=== PATIENT | female | born 1945 | race Asian ===

== ENCOUNTER 2019-11-09 10:48 | Outpatient (CLI) | payer MEDICARE, OTHER | END 2019-11-09 10:49 | disposition home or self-care (01) | LOC: RT 10:48 | PROVIDERS: ATTEND Ophthalmology | DX: I49.9 Cardiac arrhythmia, unspecified (principal) | CPT/HCPCS: 93005 ==

== ENCOUNTER 2019-11-17 09:07 | Outpatient (CLI) | payer MEDICARE, OTHER ==
[2019-11-17 09:41] LABS: BASOPHILS # (AUTO) 0.1 10^3/uL (0.0-0.1); BASOPHILS % (AUTO) 0.9 %; EOSINOPHILS # (AUTO) 0.2 10^3/uL (0.0-0.7); EOSINOPHILS % (AUTO) 2.1 %; HGB - HEMOGLOBIN 12.4 g/dL (12.0-16.0); LYMPHOCYTES # (AUTO) 1.9 10^3/uL (1.5-3.5); LYMPHOCYTES % (AUTO) 20.7 %; MEAN CORPUSCULAR HGB CONC 32.4 g/dL (32.0-36.0); MEAN CORPUSCULAR VOLUME 92.5 fL (81.0-99.0); MEAN PLATELET VOLUME 9.6 fL (7.9-10.8); MONOCYTES # (AUTO) 0.8 10^3/uL (0.0-1.0); MONOCYTES % (AUTO) 8.8 %; NEUTROPHILS # (AUTO) 6.1 10^3/uL (1.5-6.6); NEUTROPHILS % (AUTO) 67.1 %; PLT - PLATELET COUNT 336 10^3/uL (130-450); RED BLOOD COUNT 4.14 10^6/uL (4.20-5.40); RED CELL DISTRIBUTION WIDTH 14.6 % (12.0-15.0); WHITE BLOOD COUNT 9.1 x10^3/uL (4.8-10.8)
[2019-11-17 09:59] LABS: ALBUMIN 4.2 g/dL (3.2-5.5); ALBUMIN/GLOBULIN RATIO 1.2 (1.0-2.2); ALKALINE PHOSPHATASE 76 IU/L (42-121); ALT ALANINE AMINOTRANSFERASE 20 IU/L (10-60); AST ASPARTATE AMINOTRANSFERASE 34 IU/L (10-42); BILIRUBIN,TOTAL 1.1 mg/dL (0.2-1.0); BUN - BLOOD UREA NITROGEN 32 mg/dL (6-20); CARBON DIOXIDE - CO2 28 mmol/L (21-32); CHLORIDE 100 mmol/L (101-111); CHOL/HDL RATIO 3.3 (<4.4); CHOLESTEROL 228 mg/dL; CREATININE 1.1 mg/dL (0.4-1.0); GFR - MDRD 49 (>89); GLUCOSE 110 mg/dL (70-100); HDL CHOLESTEROL 70 mg/dL; LDL CHOLESTEROL,CALCULATED 145 mg/dL; LDL/HDL RATIO 2.1 (<4.4); SODIUM 138 mmol/L (135-145); TOTAL PROTEIN 7.6 g/dL (6.7-8.2); VLDL CHOLESTEROL 13 mg/dL
== END 2019-11-17 09:08 | disposition home or self-care (01) ==
LOC: DI 09:07
PROVIDERS: ATTEND Physician Assistant
DX: I49.3 Ventricular premature depolarization (principal); R94.31 Abnormal electrocardiogram [ECG] [EKG]; I10 Essential (primary) hypertension; Z00.00 Encounter for general adult medical examination without abnormal findings
CPT/HCPCS: 36415; 80053; 80061; 83721; 84443; 85025; 93306

== ENCOUNTER 2019-11-17 09:32 | Outpatient (CLI) | payer MEDICARE, OTHER | END 2019-11-17 09:33 | disposition home or self-care (01) | LOC: LAB.S 09:32 | PROVIDERS: ATTEND Physician Assistant | DX: Z00.00 Encounter for general adult medical examination without abnormal findings (principal) ==

== ENCOUNTER 2020-03-07 07:17 | Day surgery (SDC) | payer MEDICARE, OTHER ==
[~2020-03-07 07:17] MED LIST: BRIMONIDINE 0.2% OPHTH DROPS 5 ML ONE; BSS/LIDOCAINE/EPINEPHRINE 1 ML SYRINGE ONE; CYCLOPENTOLATE 1% OPHTH DROPS 2 ML ONE; KETOROLAC 0.45% OPHTH DROPS ONE; PHENYLEPHRINE 2.5% OPHTH 2 ML DROPS ONE; PROPARACAINE 0.5% OPHTH DROPS 15 ML ONE; TRIAMCIN/MOXIFLOX OPHTHALMIC 0.6 ML VIAL IO ONE; VANCOMYCIN OPHTHALMI 8MG/0.8ML 8 MG/0.8 ML SYRINGE IO ONE; timoloL maleate 0.5% OPHTH DROPS (10ML) ONE
[2020-03-07] MEDS ORDERED: LACTATED RINGERS 500 ML IV ONE (07:34)
[2020-03-07] MEDS ORDERED: KETOROLAC 0.45% OPHTH DROPS RIGHTEYE ONE (07:35)
[2020-03-07] MEDS ORDERED: PROPARACAINE 0.5% OPHTH DROPS 15 ML RIGHTEYE ONE (07:35)
[2020-03-07] MEDS ORDERED: PHENYLEPHRINE 2.5% OPHTH 2 ML DROPS RIGHTEYE ONE (07:35)
[2020-03-07] MEDS ORDERED: CYCLOPENTOLATE 1% OPHTH DROPS 2 ML RIGHTEYE ONE (07:35)
--- NOTE | 2020-03-07 08:08 | ANESTHESIA ---
Pre-Anesthesia VS, & Labs - Diagnosis R senile combined cataract - Procedure R extraction cataract w/IOL Vital Signs: Temp Pulse Resp BP Pulse Ox 36.3 C L 76 16 125/76 97 03/07/20 07:29 03/07/20 07:29 03/07/20 07:29 03/07/20 07:29 03/07/20 07:29 Height 5 ft 1 in Weight (kg) 54 kg - NPO >8 hours - Is Patient ?: No Home Medications and Allergies Home Medications: Ambulatory Orders Amlodipine Besylate 5 mg PO DAILY 02/27/20 Lisinopril/Hydrochlorothiazide [Lisinopril-Hctz 20-12.5 mg Tab] 1 each PO DAILY 02/27/20 Amlodipine Besylate 5 mg PO DAILY 02/27/20 Lisinopril/Hydrochlorothiazide [Lisinopril-Hctz 20-12.5 mg Tab] 1 each PO DAILY 02/27/20 Allergies/Adverse Reactions: Allergies Allergy/AdvReac Type Severity Reaction Status Date / Time pollen extracts Allergy Respiratory Verified 11/09/19 12:07 Anes History & Medical History - Anesthetic History Anesthesia Complications: reports: No previous complications Family history of Anesthesia Complications: Denies Family history of Malignant Hyperthermia: Denies - Medical History Cardiovascular: reports: Hypertension, Arrhythmia (hx bigeminy, occasional irreg heard today, likely PVC) Pulmonary: reports: None Gastrointestinal: reports: None Urinary: reports: None Musculoskeletal: reports: Osteoarthritis Endocrine/Autoimmune: reports: None Skin: reports: None Exam General: Alert, Oriented x3, Cooperative Dental: Dentures full Upper, Dentures full Lower Mouth Openin Fingerbreadth Neck Mobility: Normal Mallampati classification: II Thyromental Distance: 4-6 cm Respiratory: Lungs clear, Normal breath sounds, No respiratory distress Cardiovascular: Regular rate (occasional irregular, likely PVC), Other Plan Anesthesia Type: MAC Consent for Procedure(s) Verified and Reviewed: Yes Code Status: Attempt Resuscitation ASA classification: 2-Mild systemic disease Is this case an emergency?: No
[2020-03-07] MEDS ORDERED: MIDAZOLAM 2 MG/2 ML VIAL IVP ONE (08:24)
[2020-03-07] MEDS ORDERED: BRIMONIDINE 0.2% OPHTH DROPS 5 ML OPTH ONE (08:42)
[2020-03-07] MEDS ORDERED: EPINEPHrine 1 MG/ML AMP IVP ONE (08:43)
[2020-03-07] MEDS ORDERED: CHONDR SULF/HYALURONATE SYRINGE IO ONE (08:43)
[2020-03-07] MEDS ORDERED: BSS/LIDOCAINE/EPINEPHRINE 1 ML SYRINGE IO ONE (08:43)
[2020-03-07] MEDS ORDERED: TRIAMCIN/MOXIFLOX OPHTHALMIC 0.6 ML VIAL IO ONE (08:44)
[2020-03-07] MEDS ORDERED: VANCOMYCIN OPHTHALMI 8MG/0.8ML 8 MG/0.8 ML SYRINGE IO ONE (08:44)
[2020-03-07] MEDS ORDERED: timoloL maleate 0.5% OPHTH DROPS (10ML) RIGHTEYE ONE (08:45)
--- NOTE | 2020-03-07 08:53 | OPERATIVE REPORT ---
DATE OF SERVICE: 03/07/2020 Physician: Heron Acosta MD PREOPERATIVE DIAGNOSIS: Visually significant cataract, right eye. This was her first cataract surge ry. POSTOPERATIVE DIAGNOSIS: Visually significant cataract, right eye. This was her first cataract surg rgegg. DESCRIPTION OF PROCEDURE: Phacoemulsification with posterior chamber intraocular lens implant, right eye. SURGEON: Heron Acosta MD ANESTHESIA: Monitored anesthesia care. COMPLICATIONS: None. OPERATIVE INDICATIONS: This is a 74-year-old woman with progressive vision loss in the right eye due to 3+ nuclear sclerotic and 1-2+ posterior subcapsular cataract. Best corrected visual acuity was 2 0/40, with glare to hand motion vision in the right eye. Indications for surgery are overall decreas e in vision, difficulty seeing words on a computer screen, difficulty reading, difficulty seeing word s, closed caption or game scores on TV, difficulty seeing street signs, difficulty driving in low lig ht or at night, difficulty driving at night because of headlights from other vehicles. She was conse nted at length concerning risks and benefits of cataract surgery, after which she expressed a desire to proceed with surgery. OPERATIVE PROCEDURE: The patient was taken to OR #3 and placed under monitored anesthesia care. Maximilian gical timeout was conducted confirming correct patient, correct procedure, and correct surgical site. She was given topical anesthesia, and then prepped and draped in the usual sterile fashion. The ey e was entered at the 12 and 9 o'clock positions. Intracameral Shugarcaine was injected into the ante rior chamber, followed by Viscoat. A continuous-tear curvilinear capsulorrhexis was performed. The nucleus was hydrodissected and phacoemulsified. The cortex was evacuated using automated infusion an d aspiration. Provisc was injected in the capsular bag, and a 22.5 diopter intraocular lens inserted in the bag. Infusion and aspiration was then used to evacuate the viscoelastic materials. The eye was inflated to physiologic pressure using balanced salt solution and found to be watertight. Approx imately 0.25 mL of a mixture of triamcinolone and moxifloxacin was injected trans sclerally into the vitreous in the inferotemporal quadrant. An additional 0.55 mL of a mixture of triamcinolone, moxifl oxacin and vancomycin was injected subconjunctivally in the superior quadrant for infection and infla mmation prophylaxis. Wound integrity was checked with Weck-Demi sponges. The patient was taken from the operating room in good condition and given postoperative instructions. TD: 03/07/2020 08:44
[2020-03-07 09:02] VITALS: BP 108/66
== END 2020-03-07 07:18 | disposition home or self-care (01) ==
LOC: SDS 07:17
PROVIDERS: ATTEND Ophthalmology
DX: H25.811 Combined forms of age-related cataract, right eye (principal); I10 Essential (primary) hypertension; I49.9 Cardiac arrhythmia, unspecified
CPT/HCPCS: 66984; A9270; J3490; V2632

== ENCOUNTER 2020-08-30 09:58 | Outpatient (CLI) | payer MEDICARE, OTHER | END 2020-08-30 09:59 | disposition EMS.NT | LOC: EMS 09:58 | PROVIDERS: ATTEND Surgery | DX: R55 Syncope and collapse (principal) ==

== ENCOUNTER 2020-09-11 11:53 | Inpatient (IN) | payer MEDICARE, OTHER ==
[2020-09-11] MEDS ORDERED: SODIUM CHLORIDE 0.9% 1,000 ML IV STA ×2 (12:14→17:08)
[2020-09-11 12:31] LABS: BASOPHILS # (AUTO) 0.1 10^3/uL (0.0-0.1); BASOPHILS % (AUTO) 0.6 %; EOSINOPHILS # (AUTO) 0.1 10^3/uL (0.0-0.7); EOSINOPHILS % (AUTO) 0.7 %; HCT - HEMATOCRIT 30.9 % (37.0-47.0); HGB - HEMOGLOBIN 10.1 g/dL (12.0-16.0); LYMPHOCYTES # (AUTO) 0.8 10^3/uL (1.5-3.5); LYMPHOCYTES % (AUTO) 5.9 %; MEAN CORPUSCULAR HEMOGLOBIN 28.9 pg (27.0-31.0); MEAN CORPUSCULAR HGB CONC 32.7 g/dL (32.0-36.0); MEAN CORPUSCULAR VOLUME 88.5 fL (81.0-99.0); MEAN PLATELET VOLUME 9.5 fL (7.9-10.8); MONOCYTES # (AUTO) 0.6 10^3/uL (0.0-1.0); MONOCYTES % (AUTO) 4.3 %; NEUTROPHILS # (AUTO) 11.8 10^3/uL (1.5-6.6); NEUTROPHILS % (AUTO) 87.7 %; PLT - PLATELET COUNT 645 10^3/uL (130-450); RED BLOOD COUNT 3.49 10^6/uL (4.20-5.40); RED CELL DISTRIBUTION WIDTH 14.9 % (12.0-15.0); WHITE BLOOD COUNT 13.4 x10^3/uL (4.8-10.8)
--- NOTE | 2020-09-11 12:57 | ED Physician Documentation ---
History of Present Illness - Stated complaint Stated Complaint: CONFUSION,COUGH - Chief complaint Chief Complaint: General - History obtained from History obtained from: Patient, Family - History of Present Illness Timing: How many weeks ago (3) - Additonal information Additional information: Previously well 74-year-old female with a history of hypertension and who is only had a cataract operation previously for the past 3 weeks she has become less responsive and has developed inability to function as she had previously with deficit in memory. Her states she put her in front and he put her in front of the computer which he normally works on and she just stared adequate and figure out how to work it. He thought that she was developing dementia. The patient herself seems indifferent and is not very communicative initially. Review of Systems Constitutional: denies: Fever Eyes: denies: Decreased vision Ears: denies: Ear pain Nose: denies: Congestion Throat: denies: Sore throat Cardiac: denies: Chest pain / pressure, Palpitations Respiratory: reports: Cough. denies: Dyspnea GI: denies: Abdominal Pain, Nausea, Vomiting, Constipation, Diarrhea : denies: Dysuria, Frequency Skin: denies: Rash Musculoskeletal: denies: Neck pain, Back pain, Extremity pain Neurologic: reports: Generalized weakness, Altered mental status. denies: Focal weakness, Numbness PD PAST MEDICAL HISTORY - Past Medical History Past Medical History: Yes Cardiovascular: Hypertension, Arrhythmia Respiratory: None Endocrine/Autoimmune: None GI: None : None HEENT: Chronic vision loss, Chronic sinusitis Psych: None Musculoskeletal: Osteoarthritis Derm: None - Past Surgical History Past Surgical History: Yes HEENT: Cataracts - Present Medications Home Medications: Ambulatory Orders Medication Instructions Recorded Confirmed Amlodipine Besylate 5 mg PO DAILY 02/27/20 04/18/20 Lisinopril/Hydrochlorothiazide 1 each PO DAILY 02/27/20 04/18/20 [Lisinopril-Hctz 20-12.5 mg Tab] - Allergies Allergies/Adverse Reactions: Allergies Allergy/AdvReac Type Severity Reaction Status Date / Time pollen extracts Allergy Respiratory Verified 09/11/20 11:58 - Social History Does the pt smoke?: No Smoking Status: Never smoker Does the pt drink ETOH?: No Does the pt have substance abuse?: No - Immunizations Immunizations are current?: Yes - POLST Patient has POLST: No PD ED PE NORMAL - Vitals Vital signs reviewed: Yes (hypotensive) - General General: No acute distress, Well developed/nourished, Other (blank stare, flat affect and indifference) - HEENT HEENT: Atraumatic, PERRL, EOMI - Neck Neck: Supple, no meningeal sign, No bony TTP - Cardiac Cardiac: RRR, No murmur - Respiratory Respiratory: No respiratory distress, Other (diminished breath sounds ) - Abdomen Abdomen: Soft, Non tender, Other (There is a non-tender pulsatile mass in the mid abdomen. A loud flow murmer over the mass. ) - Back Back: No CVA TTP, No spinal TTP - Derm Derm: Normal color, Warm and dry, No rash - Extremities Extremities: No deformity, No edema - Neuro Neuro: mechanic senior 2-12 intact, No motor deficit, No sensory deficit, Normal speech Eye Opening: Spontaneous Motor: Obeys Commands Verbal: Confused GCS Score: 14 - Psych Psych: Other (mood is withdrawn ) Results - Vitals Vitals: Vital Signs - 24 hr 09/11/20 09/11/20 09/11/20 11:59 13:03 13:07 Temperature 35.5 C L 35.8 C L Heart Rate 97 70 Respiratory 18 18 Rate Blood Pressure 85/63 L 98/81 H O2 Saturation 94 99 09/11/20 09/11/20 14:06 17:21 Temperature 36.6 C Heart Rate 71 91 Respiratory 19 22 Rate Blood Pressure 104/64 124/71 O2 Saturation 100 99 Oxygen O2 Source Room air - Labs Labs: Laboratory Tests 09/11/20 09/11/20 09/11/20 12:16 12:17 12:17 WBC 13.4 H RBC 3.49 L Hgb 10.1 L Hct 30.9 L MCV 88.5 MCH 28.9 MCHC 32.7 RDW 14.9 Plt Count 645 H MPV 9.5 Neut # (Auto) 11.8 H Lymph # (Auto) 0.8 L [place] # (Auto) 0.6 Eos # (Auto) 0.1 Baso # (Auto) 0.1 Absolute Nucleated RBC 0.00 Nucleated RBC % 0.0 Sodium 135 Potassium 3.2 L Chloride 100 L Carbon Dioxide 17 L Anion Gap 18.0 H BUN 187 H* Creatinine 5.0 H Estimated GFR (MDRD) 8 L Glucose 214 H Lactic Acid Calcium 9.5 Total Bilirubin 0.7 AST 15 ALT 12 Alkaline Phosphatase 71 Total Protein 8.2 Albumin 3.7 Globulin 4.5 H Albumin/Globulin Ratio 0.8 L Lipase 77 H Urine Color Urine Clarity Urine pH Ur Specific [place] Urine Protein Urine Glucose (UA) Urine Ketones Urine Occult Blood Urine Nitrite Urine Bilirubin Urine Urobilinogen Ur Leukocyte Esterase Urine RBC Urine WBC Urine WBC Clumps Ur Squamous Epith Cells Urine Bacteria Ur Microscopic Review Urine Culture Comments Nasal Adenovirus (PCR) NOT DETECTED Nasal B. parapertussis DNA (PCR) NOT DETECTED Nasal Coronavir 229E PCR NOT DETECTED Nasal Coronavir HKU1 PCR NOT DETECTED Nasal Coronavir NL63 PCR NOT DETECTED Nasal Coronavir OC43 PCR NOT DETECTED Nasal Enterovir/Rhinovir PCR NOT DETECTED Nasal Influenza B PCR NOT DETECTED Nasal Influenza A PCR NOT DETECTED Nasal Parainfluen 1 PCR NOT DETECTED Nasal Parainfluen 2 PCR NOT DETECTED Nasal Parainfluen 3 PCR NOT DETECTED Nasal Parainfluen 4 PCR NOT DETECTED Nasal RSV (PCR) NOT DETECTED Nasal B.pertussis DNA PCR NOT DETECTED Nasal C.pneumoniae (PCR) NOT DETECTED Russ Human Metapneumo PCR NOT DETECTED Nasal M.pneumoniae (PCR) NOT DETECTED Nasal SARS-CoV-2 (PCR) NOT DETECTED 09/11/20 09/11/20 09/11/20 12:17 14:40 16:48 WBC RBC Hgb Hct MCV MCH MCHC RDW Plt Count MPV Neut # (Auto) Lymph # (Auto) [place] # (Auto) Eos # (Auto) Baso # (Auto) Absolute Nucleated RBC Nucleated RBC % Sodium 137 Potassium 3.3 L Chloride 104 Carbon Dioxide 17 L Anion Gap 16.0 H BUN 173 H* Creatinine 4.4 H Estimated GFR (MDRD) 10 L Glucose 130 H Lactic Acid 1.8 Calcium 8.9 Total Bilirubin AST ALT Alkaline Phosphatase Total Protein Albumin Globulin Albumin/Globulin Ratio Lipase Urine Color YELLOW Urine Clarity CLOUDY Urine pH 5.5 Ur Specific [place] 1.015 Urine Protein TRACE Urine Glucose (UA) NEGATIVE Urine Ketones NEGATIVE Urine Occult Blood SMALL H Urine Nitrite NEGATIVE Urine Bilirubin NEGATIVE Urine Urobilinogen 0.2 (NORMAL) Ur Leukocyte Esterase LARGE H Urine RBC 0-5 Urine WBC >25 H Urine WBC Clumps PRESENT Ur Squamous Epith Cells FEW Squamous Urine Bacteria Moderate H Ur Microscopic Review INDICATED Urine Culture Comments INDICATED Nasal Adenovirus (PCR) Nasal B. parapertussis DNA (PCR) Nasal Coronavir 229E PCR Nasal Coronavir HKU1 PCR Nasal Coronavir NL63 PCR Nasal Coronavir OC43 PCR Nasal Enterovir/Rhinovir PCR Nasal Influenza B PCR Nasal Influenza A PCR Nasal Parainfluen 1 PCR Nasal Parainfluen 2 PCR Nasal Parainfluen 3 PCR Nasal Parainfluen 4 PCR Nasal RSV (PCR) Nasal B.pertussis DNA PCR Nasal C.pneumoniae (PCR) Russ Human Metapneumo PCR Nasal M.pneumoniae (PCR) Nasal SARS-CoV-2 (PCR) - Rads (name of study) chfst Radiology: Prelim report reviewed (Impression: 1. No acute cardiopulmonary abnormality. 2. Hyperexpanded lungs consistent with COPD.), EMP read indepedently, See rad report CT head Radiology: Prelim report reviewed (Impression: 1. No acute intracranial process. Moderate atrophy and chronic microvascular ischemic changes.), EMP read indepedently, See rad report Ultrasound abdomen Radiology: Prelim report reviewed (Impression: Distal aortic aneurysm measuring 4.6 x 5.0 cm in diameter with an eccentric mural thrombus and measuring 8.9 cm in length with no ultrasound evidence of acute extravasation.), EMP read indepedently, See rad report Procedures - Bedside sono Bedside sono by EMP: There is a palpable aortic aneurysm without evidence of extravasation. - IVC sono (time) 1250 Bedside IVC sono: IVC measures (cm) (0.94), IVC collapsed c insp (cm) (complete), Dehydration (est 2 liter deficit) PD MEDICAL DECISION MAKING - ED course Complexity details: reviewed old records, reviewed results, re-evaluated patient, considered differential, d/w patient, d/w family ED course: Previously well 74-year-old female comes into the emergency department with altered mental status and her initial complaint is of a dry cough and decreased mental status. On physical examination she has an obvious abdominal aortic aneurysm that is nontender and without extravasation. Her chest x-ray was unremarkable she saturated 100% heart exam was unremarkable and we got the patient's laboratory studies back and found she was in acute renal failure. Her BUN was 187 her creatinine is 5.0. Potassium was 3.2. I had interrogated the inferior inferior vena cava and begun some fluids on this patient and she responded nearly immediately with improved cognition. She had further improvement with further hydration. After 1 L she appeared to be mentating normally and her was thrilled that she was able to cooperate and renee eared to be back on the planet with him. I became concerned that the possible etiology of the patient's acute renal failure was maybe related to her aneurysm and asked the tv technician to come in and check velocities on the renal arteries and examined the aneurysm formally. The patient did appear to have flow to the kidneys bilaterally. The aneurysm was not ruptured or dissected. This patient with acute renal failure and altered mental status appeared to need transfer and the inspector integrated circuits at [facility] in [place] Dr. Drew Recommended that we hydrate the patient here and follow her basic metabolic panel every 4 hours and as long as it continues to improve transfer would not be necessary. She does not need dialysis at this point. Her potassium is normal. I consulted Dr. Matthias Jenkins our hospitalist here and he recommended that we recheck her basic metabolic panel now as she has been here four hours and he is concerned about the possibility of obstruction as being a reason for failure. I was able to go back to the patient's bedside examine both of her kidneys did not see any evidence of hydronephrosis she did have a full bladder but it was not over full. I was able to examine the heart and did not find any evidence of a pericardial effusion. On physical exam I was not able to auscultate a friction rub. Departure - Departure Disposition: 66 [facility] DC/Xfer Clinical Impression: Dehydration Acute renal failure Qualifiers: Acute renal failure type: unspecified Qualified Code(s): N17.9 - Acute kidney failure, unspecified Urinary tract infection Qualifiers: Urinary tract infection type: acute cystitis Hematuria presence: without hematuria Qualified Code(s): N30.00 - Acute cystitis without hematuria Altered mental status Qualifiers: Altered mental status type: transient alteration of awareness Qualified Code(s): R40.4 - Transient alteration of awareness
[2020-09-11 13:02] LABS: ALBUMIN/GLOBULIN RATIO 0.8 (1.0-2.2)
[2020-09-11 13:03] LABS: ALBUMIN 3.7 g/dL (3.2-5.5); BILIRUBIN,TOTAL 0.7 mg/dL (0.2-1.0); CALCIUM 9.5 mg/dL (8.5-10.3); POTASSIUM 3.2 mmol/L (3.5-5.0); TOTAL PROTEIN 8.2 g/dL (6.7-8.2)
[2020-09-11 13:25] LABS: B. PARAPERTUSSIS- RESP PCR PAN NOT DETECTED; B. PERTUSSIS- RESP PCR PANEL NOT DETECTED; C. PNEUMONIAE- RESP PCR PANEL NOT DETECTED; CORONAVIRUS 229E-RESP PCR NOT DETECTED; CORONAVIRUS HKU1-RESP PCR NOT DETECTED; CORONAVIRUS NL63-RESP PCR NOT DETECTED; CORONAVIRUS OC43-RESP PCR NOT DETECTED; HUMAN METAPNEUMOVIRUS NOT DETECTED; INFLUENZA A- RESP PCR PANEL NOT DETECTED; INFLUENZA B - RESP PCR PANEL NOT DETECTED; M. PNEUMONIAE- RESP PCR PANEL NOT DETECTED; PARAINFLUENZA VIRUS 1 NOT DETECTED; PARAINFLUENZA VIRUS 2 NOT DETECTED; PARAINFLUENZA VIRUS 3 NOT DETECTED; PARAINFLUENZA VIRUS 4 NOT DETECTED; RHINOVIRUS/ENTEROVIRUS NOT DETECTED; RSV- RESP PCR PANEL NOT DETECTED; SARS-CoV-2 -RESP PCR PANEL NOT DETECTED
--- NOTE | 2020-09-11 13:47 | XRAY Report ---
PROCEDURE: Chest 1 View X-Ray INDICATIONS: chest pain TECHNIQUE: One view of the chest was acquired. COMPARISON: FINDINGS: Surgical changes and devices: None. Lungs and pleura: No pleural effusions or pneumothorax. Lungs are clear. The lungs are hyperexpand ed consistent with COPD. Mediastinum: Mediastinal contours appear normal. Heart size is normal. The aorta is tortuous. Bones and chest wall: No suspicious bony lesions. Overlying soft tissues appear unremarkable. IMPRESSION: 1. No acute cardiopulmonary abnormality. 2. Hyperexpanded lungs consistent with COPD. Reviewed by: Sae Joseph on 09/11/2020 1:45 PM [facility] Approved by: Sae Joseph on 09/11/2020 1:45 PM [facility] Station ID: [id number]
--- NOTE | 2020-09-11 13:55 | CT Report ---
PROCEDURE: HEAD WO INDICATIONS: ALOC TECHNIQUE: Noncontrast 4.5 mm thick angled axial sections acquired from the foramen magnum to the vertex. For r adiation dose reduction, the following was used: automated exposure control, adjustment of mA and/or kV according to patient size. COMPARISON: None. FINDINGS: Image quality: Excellent. The ventricular system and cortical sulci demonstrate atrophy, consistent for patient's stated age. There are areas of hypodensity in the periventricular and subcortical white matter. There is no acut e intra or extra-axial fluid collection. No acute hemorrhage, mass lesion or midline shift. Brainst em is unremarkable. Globes are symmetrical. Sinuses are aerated. Osseous structures are intact. IMPRESSION: 1. No acute intracranial process. 2. Moderate atrophy and chronic microvascular ischemic changes. Reviewed by: Mariana Michael MD on 09/11/2020 1:54 PM [facility] Approved by: Mariana Michael MD on 09/11/2020 1:54 PM [facility] Station ID: [id number]
--- NOTE | 2020-09-11 14:45 | Ultrasound Report ---
PROCEDURE: Retroperitoneal Limited INDICATIONS: PULSATILE ABD MASS, EVAL AORTA AND RENAL ARTERY ORIGINS TECHNIQUE: Real-time scanning was performed of the retroperitoneal organs, with image documentation. COMPARISON: None. FINDINGS: The aorta has diffuse severe atherosclerotic disease. The proximal aorta measures 2.9 x 3.0 cm. The m id aorta measures 2.5 x 2.1 cm. The distal aorta has an aneurysm measuring 4.6 x 5.0 cm measuring 8.9 cm. The aneurysm has an eccentric mural thrombus with a patent lumen. No evidence of acute rupture. The aneurysm originates below the renal arteries and ends at the bifurcation measuring 8.9 cm in oliver th. The common iliac arteries are not well visualized due to overlying bowel gas. IMPRESSION: Distal aortic aneurysm measuring 4.6 x 5.0 cm in diameter with an eccentric mural thromb us and measuring 8.9 cm in length with no ultrasound evidence of acute extravasation. Reviewed by: Sae Joseph on 09/11/2020 2:43 PM PST Approved by: Sae Joseph on 09/11/2020 2:43 PM PST Station ID: [id number]
[2020-09-11 14:51] LABS: BILIRUBIN,URINE NEGATIVE (NEGATIVE); GLUCOSE, URINE (UA) NEGATIVE (NEGATIVE); KETONES,URINE (UA) NEGATIVE (NEGATIVE); LEUKOCYTE ESTERASE, URINE LARGE (NEGATIVE); NITRITE,URINE NEGATIVE (NEGATIVE); OCCULT BLOOD,URINE SMALL (NEGATIVE); PH,URINE 5.5 PH (5.0-7.5); PROTEIN,URINE TRACE mg/dL (NEGATIVE); UROBILINOGEN,URINE 0.2 (NORMAL) E.U./dL (NORMAL)
[2020-09-11 14:52] LABS: CLARITY,URINE CLOUDY (CLEAR)
[2020-09-11 15:02] LABS: WBC CLUMPS,URINE PRESENT; WBC,URINE >25 /HPF (0-5)
[2020-09-11 15:03] LABS: BACTERIA,URINE Moderate /HPF (None Seen); RBC,URINE 0-5 /HPF (0-5); SQUAMOUS EPITHELIAL CELL,UR FEW Squamous (<= Few)
[2020-09-11] MEDS ORDERED: cefTRIAXone 1 GM in SODIUM CHLORIDE 0.9% MINIBAG 100 ML IV STA (16:37)
[2020-09-11 17:16] LABS: CALCIUM 8.9 mg/dL (8.5-10.3); CREATININE 4.4 mg/dL (0.4-1.0); POTASSIUM 3.3 mmol/L (3.5-5.0)
[2020-09-11] MEDS ORDERED: SODIUM CHLORIDE FLUSH 0.9% 10 ML SYRINGE IVP PRN (18:31)
[2020-09-11] MEDS ORDERED: ONDANSETRON ODT 4 MG TABLET TL PRN (18:31)
[2020-09-11] MEDS ORDERED: ACETAMINOPHEN 325 MG TABLET PO PRN (18:31)
--- NOTE | 2020-09-11 19:35 | HISTORY & PHYSICAL EXAMINATION ---
Chief Complaint - Chief Complaint Chief Complaint: altered mental status History of Present Illness - [facility] - History Obtained From Records Reviewed: yes History obtained from: patient - History of Present Illness HPI Comment/Other: Patient is a 74-year-old female with medical history significant for hyperte nsion who was brought in by her today for altered mental status. The patient does not have specific recollection of what made her concerned and her is currently unreachable through phone. A message has been left for him to contact the night time physician. According to the HPI of the ED physicians H&P it appears the patient which just staring blankly at a computer as if trying to figure out how it works for the first time. Work-up in the ED included BMP which showed a creatinine of 5.0 and BUN 187. The patient also had a UA which showed bacteria and white blood cells. Further work- up included an ultrasound of the abdomen pelvis which showed a distal abdominal aortic aneurysm with an eccentric thrombus. Nephrology was contacted by the ED physician and they advised initial treatment with IV hydration and the hospital. Furthermore that if there was no improvement then the patient could be transferred at that point. Vascular surgery was also contacted for the aneurysm. They advised that no immediate intervention was needed and to place the patient on aspirin. Also to get a CT angio of the abdomen pelvis when appropriate to do so. The patient was presented for admission for further treatment which at this time includes IV hydration and antibiotics. At bedside she is alert and awake. She denies any complaints. She denies chest pain, dyspnea, abdominal pain, nausea, vomiting, fever or chills. The rest of her history is unremarkable. History - Past Medical History Cardiovascular: reports: Hypertension, Arrhythmia Respiratory: reports: None Endocrine/Autoimmune: reports: None GI: reports: None : reports: None HEENT: reports: Chronic vision loss, Chronic sinusitis Psych: reports: None Musculoskeletal: reports: Osteoarthritis Derm: reports: None MRSA Hx?: No - Past Surgical History HEENT: reports: Cataracts - Family & Social History Family History Comment/Other: Denies any significant family history Social History Notes: Lives at home with her . She has history of 1 pack/day for about 20 years however she currently does not smoke. She denies a lcohol or recreational substance use. - POLST Patient has POLST: No POLST Status: DNR Meds/Allgy - Home Medications Home Medications: Ambulatory Orders Medication Instructions Recorded Confirmed Amlodipine Besylate 5 mg PO DAILY 02/27/20 04/18/20 Lisinopril/Hydrochlorothiazide 1 each PO DAILY 02/27/20 04/18/20 [Lisinopril-Hctz 20-12.5 mg Tab] - Allergies Allergies/Adverse Reactions: Allergies Allergy/AdvReac Type Severity Reaction Status Date / Time pollen extracts Allergy Respiratory Verified 09/11/20 11:58 Review of Systems - Constitutional Constitutional: reports: Weakness. denies: Fever, Chills - Eyes Eyes: denies: Pain, Vision loss, Dipolpia - Ears, Nose & Throat Ears, Nose & Throat: denies: Ear pain, Vertigo - Cardiovascular Cariovascular: denies: Irregular heart rate, Palpitations, Chest pain, Edema - Respiratory Respiratory: denies: Cough, Sputum production, Wheezing, SOB at rest, SOB with exertion - Gastrointestinal Gastrointestinal: denies: Abdominal pain, Abdominal distention, Diarrhea, Nausea, Vomiting, Coffee grounds emesis, Reflux/heartburn - Genitourinary Genitourinary: denies: Dysuria, Frequency, Urgency, Hematuria - Musculoskeletal Musculoskeletal: denies: Muscle pain, Back pain, Muscle aches, Stiffness - Neurological Neurological: reports: General weakness. denies: Focal weakness, Headache, Dizziness - Psychiatric Psychiatric: denies: Depression, Anxiety - Endocrine Endocrine: denies: Polyuria, Polydypsia - Hematologic/Lymphatic Hematologic/Lymphatic: denies: Anemia, Bruising Prior Level of Functionality: Is normally independent of activities of daily living and walks unaided. Exam - Vital Signs Vital Signs: Vital Signs x48h Temp Pulse Resp BP Pulse Ox 09/11/20 18:56 36.4 C L 71 16 106/66 99 09/11/20 17:21 36.6 C 91 22 124/71 99 09/11/20 14:06 71 19 104/64 100 09/11/20 13:07 35.8 C L 09/11/20 13:03 70 18 98/81 H 99 09/11/20 11:59 35.5 C L 97 18 85/63 L 94 - Physical Exam General Appearance: positive: No acute distress, Alert Eyes Bilateral: positive: PERRL, EOMI ENT: positive: Dry mucous membranes Neck: positive: No JVD, Trachea midline Respiratory: positive: Chest non-tender, No respiratory distress, Breath sounds nml. negative: Wheezes, Rales, Rhonchi Cardiovascular: positive: Regular rate & rhythm, No murmur Abdomen: positive: Non-tender, No organomegaly, Nml bowel sounds, No distention, Bruit (abdomen). negative: Guarding, Rebound Back: positive: Nml inspection Skin: positive: No rash, Warm, Dry Extremities: positive: Non-tender, Full ROM, Nml appearance, No pedal edema Neurologic/Psychiatric: positive: Oriented x3, Mood/affect nml Conclusion/Plan - Problem List (1) Acute renal failure Conclusion/Plan: Likely secondary to a pre-renal cause from dehydration and/or medication (lisinopril/hctz). Patient is currently on lactated Ringer's at 150 mils per hour. Also suspect a UTI. Patient is on Rocephin. Will continue. Qualifiers: Acute renal failure type: unspecified Qualified Code(s): N17.9 - Acute kidney failure, unspecified (2) Altered mental status Conclusion/Plan: Likely secondary to uremia, related to acute renal failure and possibly UTI. Patient is currently receiving IV hydration with lactated Ringer's at 150 mL/h. Patient received Rocephin in the ED. Will continue. Blood and urine cultures pending. Qualifiers: Altered mental status type: transient alteration of awareness Qualified Code(s): R40.4 - Transient alteration of awareness (3) Dehydration Conclusion/Plan: [place] receiving IV hydration with lactated Ringer's at 150 mils per hour. (4) Urinary tract infection Conclusion/Plan: On Rocephin 1 g daily. Urine and blood cultures pending. Qualifiers: Urinary tract infection type: acute cystitis Hematuria presence: without hematuria Qualified Code(s): N30.00 - Acute cystitis without hematuria (5) Hypertension Conclusion/Plan: Currently hypotensive due to dehydration. We will hold patient's lisinopril, HCTZ and amlodipine while actively hydrating the patient. (6) AAA (abdominal aortic aneurysm) Conclusion/Plan: Ultrasound of the abdomen pelvis was done which showed blood flow to the renal arteries. Vascular surgery was contacted. They advised starting the patient on aspirin and obtaining a CT angio of the abd/pel when appropriate to do so. Also that the patient may follow-up outpatient clinic. - Lab Results Fish Bones: 09/11/20 12:17 09/11/20 16:48 Core Measures - Anticipated LOS I expect patient to be DC'd or transferred within 96 hours.: Yes - DVT/VTE - Prophylaxis VTE/DVT Device ordered at admit?: Yes
[2020-09-11] MEDS: LACTATED RINGERS 1,000 ML IV SCH (19:54)
[2020-09-11 21:24] LABS: CALCIUM 9.3 mg/dL (8.5-10.3); CREATININE 3.9 mg/dL (0.4-1.0); POTASSIUM 3.2 mmol/L (3.5-5.0)
[2020-09-11] MEDS ORDERED: POTASSIUM CHLORIDE 20 MEQ TABLET PO ONE (21:45)
[2020-09-11] MEDS: HEPARIN 5,000 UNIT/ML VIAL SUBQ SCH (22:26)
[2020-09-12] MEDS: SODIUM CHLORIDE FLUSH 0.9% 10 ML SYRINGE IVP SCH ×3 (01:17→17:58)
[2020-09-12] MEDS: LACTATED RINGERS 1,000 ML IV SCH ×4 (02:18→23:39)
[2020-09-12 05:08] LABS: BASOPHILS # (AUTO) 0.1 10^3/uL (0.0-0.1); BASOPHILS % (AUTO) 1.3 %; EOSINOPHILS # (AUTO) 0.2 10^3/uL (0.0-0.7); EOSINOPHILS % (AUTO) 2.4 %; HCT - HEMATOCRIT 25.6 % (37.0-47.0); HGB - HEMOGLOBIN 8.5 g/dL (12.0-16.0); LYMPHOCYTES # (AUTO) 0.7 10^3/uL (1.5-3.5); LYMPHOCYTES % (AUTO) 9.4 %; MEAN CORPUSCULAR HEMOGLOBIN 29.2 pg (27.0-31.0); MEAN CORPUSCULAR HGB CONC 33.2 g/dL (32.0-36.0); MEAN PLATELET VOLUME 9.7 fL (7.9-10.8); MONOCYTES # (AUTO) 0.4 10^3/uL (0.0-1.0); MONOCYTES % (AUTO) 5.8 %; NEUTROPHILS % (AUTO) 80.6 %; PLT - PLATELET COUNT 559 10^3/uL (130-450); RED BLOOD COUNT 2.91 10^6/uL (4.20-5.40); RED CELL DISTRIBUTION WIDTH 14.9 % (12.0-15.0); WHITE BLOOD COUNT 7.4 x10^3/uL (4.8-10.8)
[2020-09-12 05:55] LABS: CALCIUM 9.2 mg/dL (8.5-10.3); CREATININE 3.3 mg/dL (0.4-1.0); MAGNESIUM 2.6 mg/dL (1.7-2.8); PHOSPHORUS 4.7 mg/dL (2.5-4.6); POTASSIUM 3.9 mmol/L (3.5-5.0)
--- NOTE | 2020-09-12 07:20 | PROVIDER PROGRESS NOTE ---
Subjective - Prog Note Date Prog Note Date: 09/12/20 - Subjective Subjective: She reports feeling much better today. She knows she is in the hospital and that she was here because of confusion. Denies any chest pain or dyspnea. She was able to eat breakfast without any difficulties. Current Medications - Current Medications Current Medications: Active Medications Acetaminophen (Acetaminophen 325 Mg Tablet) 650 mg PO Q4HR PRN PRN Reason: Pain 1 to 4 Aspirin (Aspirin Ec 81 Mg Tablet) 81 mg PO DAILY [facility] Last Admin: 09/12/20 08:19 Dose: 81 mg Documented by: Heparin Sodium (Porcine) (Heparin 5,000 Unit/Ml Vial) 5,000 unit SUBQ BID [facility] Last Admin: 09/12/20 08:18 Dose: 5,000 unit Documented by: Lactated Ringer's (Lr) 1,000 mls @ 150 mls/hr IV .Q6H40M [facility] Last Infusion: 09/12/20 09:08 Dose: 150 mls/hr Documented by: Ceftriaxone Sodium 1 gm/ (Sodium Chloride) 100 mls @ 200 mls/hr IV DAILY [facility] Last Infusion: 09/12/20 09:08 Dose: Infused Documented by: Ondansetron HCl (Ondansetron Odt 4 Mg Tablet) 4 mg TL Q6HR PRN PRN Reason: Nausea / Vomiting Sodium Chloride (Sodium Chloride Flush 0.9% 10 Ml Syringe) 10 ml IVP PRN PRN PRN Reason: NEEDED PER PROVIDER ORDERS Sodium Chloride (Sodium Chloride Flush 0.9% 10 Ml Syringe) 10 ml IVP 0100,0900,1700 [facility] Last Admin: 09/12/20 08:34 Dose: 10 ml Documented by: Amlodipine Besylate 5 mg PO DAILY 02/27/20 Lisinopril/Hydrochlorothiazide [Lisinopril-Hctz 20-12.5 mg Tab] 1 each PO DAILY 02/27/20 Objective - Vital Signs/Intake & Output Reviewed Vital Signs: Yes Vital Signs: Vital Signs x48h Temp Pulse Resp BP Pulse Ox 09/12/20 03:27 36.5 C 93 20 141/66 H 98 09/12/20 00:46 36.3 C L 78 18 130/64 97 Intake & Output: Intake & Output 09/09/20 09/10/20 09/11/20 09/12/20 23:59 23:59 23:59 23:59 Intake Total 1999 1452.5 Balance 1999 1452.5 - Objective General Appearance: positive: No acute distress, Alert Eyes Bilateral: positive: Normal inspection, Conjunctivae nml ENT: positive: ENT inspection nml, Pharyngeal erythema Neck: positive: Nml inspection Respiratory: positive: No respiratory distress. negative: Wheezes, Rales Cardiovascular: positive: Regular rate & rhythm, No murmur. negative: Tachycardia, Systolic murmur Abdomen: positive: Non-tender, No distention. negative: Tenderness, Guarding, Rebound Skin: positive: Warm, Dry Extremities: positive: Full ROM, No pedal edema Neurologic/Psychiatric: positive: Oriented x3, Motor nml, Other (Her speech is a little delayed at times.). negative: Disoriented to person, Disoriented to place, Disoriented to time - Lab Results Fish Bones: 09/12/20 04:19 09/12/20 04:19 Other Labs: Lab Results x24hrs 09/12/20 09/12/20 09/11/20 Range/Units 04:19 04:19 20:59 WBC 7.4 (4.8-10.8) x10^3/uL RBC 2.91 L (4.20-5.40) 10^6/uL Hgb 8.5 L (12.0-16.0) g/dL Hct 25.6 L (37.0-47.0) % MCV 88.0 (81.0-99.0) fL MCH 29.2 (27.0-31.0) pg MCHC 33.2 (32.0-36.0) g/dL RDW 14.9 (12.0-15.0) % Plt Count 559 H (130-450) 10^3/uL MPV 9.7 (7.9-10.8) fL Neut # (Auto) 6.0 (1.5-6.6) 10^3/uL Lymph # (Auto) 0.7 L (1.5-3.5) 10^3/uL [place] # (Auto) 0.4 (0.0-1.0) 10^3/uL Eos # (Auto) 0.2 (0.0-0.7) 10^3/uL Baso # (Auto) 0.1 (0.0-0.1) 10^3/uL Absolute Nucleated RBC 0.00 x10^3/uL Nucleated RBC % 0.0 /100WBC Sodium 142 139 (135-145) mmol/L Potassium 3.9 3.2 L (3.5-5.0) mmol/L Chloride 110 107 (101-111) mmol/L Carbon Dioxide 20 L 19 L (21-32) mmol/L Anion Gap 12.0 13.0 (6-13) BUN 153 H* 161 H* (6-20) mg/dL Creatinine 3.3 H 3.9 H (0.4-1.0) mg/dL Estimated GFR (MDRD) 14 L 11 L (>89) Glucose 105 H 184 H (70-100) mg/dL Lactic Acid (0.5-2.2) mmol/L Calcium 9.2 9.3 (8.5-10.3) mg/dL Phosphorus 4.7 H (2.5-4.6) mg/dL Magnesium 2.6 3.0 H (1.7-2.8) mg/dL Total Bilirubin (0.2-1.0) mg/dL AST (10-42) IU/L ALT (10-60) IU/L Alkaline Phosphatase (42-121) IU/L Total Protein (6.7-8.2) g/dL Albumin (3.2-5.5) g/dL Globulin (2.1-4.2) g/dL Albumin/Globulin Ratio (1.0-2.2) Lipase (22-51) U/L Urine Color Urine Clarity (CLEAR) Urine pH (5.0-7.5) PH Ur Specific [place] (1.002-1.030) Urine Protein (NEGATIVE) mg/dL Urine Glucose (UA) (NEGATIVE) mg/dL Urine Ketones (NEGATIVE) mg/dL Urine Occult Blood (NEGATIVE) Urine Nitrite (NEGATIVE) Urine Bilirubin (NEGATIVE) Urine Urobilinogen (NORMAL) E.U./dL Ur Leukocyte Esterase (NEGATIVE) Urine RBC (0-5) /HPF Urine WBC (0-5) /HPF Urine WBC Clumps Ur Squamous Epith Cells (<= Few) Urine Bacteria (None Seen) /HPF Ur Microscopic Review Urine Culture Comments Nasal Adenovirus (PCR) Nasal B. parapertussis DNA (PCR) Nasal Coronavir 229E PCR Nasal Coronavir HKU1 PCR Nasal Coronavir NL63 PCR Nasal Coronavir OC43 PCR Nasal Enterovir/Rhinovir PCR Nasal Influenza B PCR Nasal Influenza A PCR Nasal Parainfluen 1 PCR Nasal Parainfluen 2 PCR Nasal Parainfluen 3 PCR Nasal Parainfluen 4 PCR Nasal RSV (PCR) Nasal B.pertussis DNA PCR Nasal C.pneumoniae (PCR) Russ Human Metapneumo PCR Nasal M.pneumoniae (PCR) Nasal SARS-CoV-2 (PCR) 09/11/20 09/11/20 09/11/20 Range/Units 20:59 16:48 14:40 WBC (4.8-10.8) x10^3/uL RBC (4.20-5.40) 10^6/uL Hgb (12.0-16.0) g/dL Hct (37.0-47.0) % MCV (81.0-99.0) fL MCH (27.0-31.0) pg MCHC (32.0-36.0) g/dL RDW (12.0-15.0) % Plt Count (130-450) 10^3/uL MPV (7.9-10.8) fL Neut # (Auto) (1.5-6.6) 10^3/uL Lymph # (Auto) (1.5-3.5) 10^3/uL [place] # (Auto) (0.0-1.0) 10^3/uL Eos # (Auto) (0.0-0.7) 10^3/uL Baso # (Auto) (0.0-0.1) 10^3/uL Absolute Nucleated RBC x10^3/uL Nucleated RBC % /100WBC Sodium 137 (135-145) mmol/L Potassium 3.3 L (3.5-5.0) mmol/L Chloride 104 (101-111) mmol/L Carbon Dioxide 17 L (21-32) mmol/L Anion Gap 16.0 H (6-13) BUN 173 H* (6-20) mg/dL Creatinine 4.4 H (0.4-1.0) mg/dL Estimated GFR (MDRD) 10 L (>89) Glucose 130 H (70-100) mg/dL Lactic Acid (0.5-2.2) mmol/L Calcium 8.9 (8.5-10.3) mg/dL Phosphorus 5.4 H (2.5-4.6) mg/dL Magnesium (1.7-2.8) mg/dL Total Bilirubin (0.2-1.0) mg/dL AST (10-42) IU/L ALT (10-60) IU/L Alkaline Phosphatase (42-121) IU/L Total Protein (6.7-8.2) g/dL Albumin (3.2-5.5) g/dL Globulin (2.1-4.2) g/dL Albumin/Globulin Ratio (1.0-2.2) Lipase (22-51) U/L Urine Color YELLOW Urine Clarity CLOUDY (CLEAR) Urine pH 5.5 (5.0-7.5) PH Ur Specific [place] 1.015 (1.002-1.030) Urine Protein TRACE (NEGATIVE) mg/dL Urine Glucose (UA) NEGATIVE (NEGATIVE) mg/dL Urine Ketones NEGATIVE (NEGATIVE) mg/dL Urine Occult Blood SMALL H (NEGATIVE) Urine Nitrite NEGATIVE (NEGATIVE) Urine Bilirubin NEGATIVE (NEGATIVE) Urine Urobilinogen 0.2 (NORMAL) (NORMAL) E.U./dL Ur Leukocyte Esterase LARGE H (NEGATIVE) Urine RBC 0-5 (0-5) /HPF Urine WBC >25 H (0-5) /HPF Urine WBC Clumps PRESENT Ur Squamous Epith Cells FEW Squamous (<= Few) Urine Bacteria Moderate H (None Seen) /HPF Ur Microscopic Review INDICATED Urine Culture Comments INDICATED Nasal Adenovirus (PCR) Nasal B. parapertussis DNA (PCR) Nasal Coronavir 229E PCR Nasal Coronavir HKU1 PCR Nasal Coronavir NL63 PCR Nasal Coronavir OC43 PCR Nasal Enterovir/Rhinovir PCR Nasal Influenza B PCR Nasal Influenza A PCR Nasal Parainfluen 1 PCR Nasal Parainfluen 2 PCR Nasal Parainfluen 3 PCR Nasal Parainfluen 4 PCR Nasal RSV (PCR) Nasal B.pertussis DNA PCR Nasal C.pneumoniae (PCR) Russ Human Metapneumo PCR Nasal M.pneumoniae (PCR) Nasal SARS-CoV-2 (PCR) 09/11/20 09/11/20 09/11/20 Range/Units 12:17 12:17 12:17 WBC 13.4 H (4.8-10.8) x10^3/uL RBC 3.49 L (4.20-5.40) 10^6/uL Hgb 10.1 L (12.0-16.0) g/dL Hct 30.9 L (37.0-47.0) % MCV 88.5 (81.0-99.0) fL MCH 28.9 (27.0-31.0) pg MCHC 32.7 (32.0-36.0) g/dL RDW 14.9 (12.0-15.0) % Plt Count 645 H (130-450) 10^3/uL MPV 9.5 (7.9-10.8) fL Neut # (Auto) 11.8 H (1.5-6.6) 10^3/uL Lymph # (Auto) 0.8 L (1.5-3.5) 10^3/uL [place] # (Auto) 0.6 (0.0-1.0) 10^3/uL Eos # (Auto) 0.1 (0.0-0.7) 10^3/uL Baso # (Auto) 0.1 (0.0-0.1) 10^3/uL Absolute Nucleated RBC 0.00 x10^3/uL Nucleated RBC % 0.0 /100WBC Sodium 135 (135-145) mmol/L Potassium 3.2 L (3.5-5.0) mmol/L Chloride 100 L (101-111) mmol/L Carbon Dioxide 17 L (21-32) mmol/L Anion Gap 18.0 H (6-13) BUN 187 H* (6-20) mg/dL Creatinine 5.0 H (0.4-1.0) mg/dL Estimated GFR (MDRD) 8 L (>89) Glucose 214 H (70-100) mg/dL Lactic Acid 1.8 (0.5-2.2) mmol/L Calcium 9.5 (8.5-10.3) mg/dL Phosphorus (2.5-4.6) mg/dL Magnesium (1.7-2.8) mg/dL Total Bilirubin 0.7 (0.2-1.0) mg/dL AST 15 (10-42) IU/L ALT 12 (10-60) IU/L Alkaline Phosphatase 71 (42-121) IU/L Total Protein 8.2 (6.7-8.2) g/dL Albumin 3.7 (3.2-5.5) g/dL Globulin 4.5 H (2.1-4.2) g/dL Albumin/Globulin Ratio 0.8 L (1.0-2.2) Lipase 77 H (22-51) U/L Urine Color Urine Clarity (CLEAR) Urine pH (5.0-7.5) PH Ur Specific [place] (1.002-1.030) Urine Protein (NEGATIVE) mg/dL Urine Glucose (UA) (NEGATIVE) mg/dL Urine Ketones (NEGATIVE) mg/dL Urine Occult Blood (NEGATIVE) Urine Nitrite (NEGATIVE) Urine Bilirubin (NEGATIVE) Urine Urobilinogen (NORMAL) E.U./dL Ur Leukocyte Esterase (NEGATIVE) Urine RBC (0-5) /HPF Urine WBC (0-5) /HPF Urine WBC Clumps Ur Squamous Epith Cells (<= Few) Urine Bacteria (None Seen) /HPF Ur Microscopic Review Urine Culture Comments Nasal Adenovirus (PCR) Nasal B. parapertussis DNA (PCR) Nasal Coronavir 229E PCR Nasal Coronavir HKU1 PCR Nasal Coronavir NL63 PCR Nasal Coronavir OC43 PCR Nasal Enterovir/Rhinovir PCR Nasal Influenza B PCR Nasal Influenza A PCR Nasal Parainfluen 1 PCR Nasal Parainfluen 2 PCR Nasal Parainfluen 3 PCR Nasal Parainfluen 4 PCR Nasal RSV (PCR) Nasal B.pertussis DNA PCR Nasal C.pneumoniae (PCR) Russ Human Metapneumo PCR Nasal M.pneumoniae (PCR) Nasal SARS-CoV-2 (PCR) 09/11/20 Range/Units 12:16 WBC (4.8-10.8) x10^3/uL RBC (4.20-5.40) 10^6/uL Hgb (12.0-16.0) g/dL Hct (37.0-47.0) % MCV (81.0-99.0) fL MCH (27.0-31.0) pg MCHC (32.0-36.0) g/dL RDW (12.0-15.0) % Plt Count (130-450) 10^3/uL MPV (7.9-10.8) fL Neut # (Auto) (1.5-6.6) 10^3/uL Lymph # (Auto) (1.5-3.5) 10^3/uL [place] # (Auto) (0.0-1.0) 10^3/uL Eos # (Auto) (0.0-0.7) 10^3/uL Baso # (Auto) (0.0-0.1) 10^3/uL Absolute Nucleated RBC x10^3/uL Nucleated RBC % /100WBC Sodium (135-145) mmol/L Potassium (3.5-5.0) mmol/L Chloride (101-111) mmol/L Carbon Dioxide (21-32) mmol/L Anion Gap (6-13) BUN (6-20) mg/dL Creatinine (0.4-1.0) mg/dL Estimated GFR (MDRD) (>89) Glucose (70-100) mg/dL Lactic Acid (0.5-2.2) mmol/L Calcium (8.5-10.3) mg/dL Phosphorus (2.5-4.6) mg/dL Magnesium (1.7-2.8) mg/dL Total Bilirubin (0.2-1.0) mg/dL AST (10-42) IU/L ALT (10-60) IU/L Alkaline Phosphatase (42-121) IU/L Total Protein (6.7-8.2) g/dL Albumin (3.2-5.5) g/dL Globulin (2.1-4.2) g/dL Albumin/Globulin Ratio (1.0-2.2) Lipase (22-51) U/L Urine Color Urine Clarity (CLEAR) Urine pH (5.0-7.5) PH Ur Specific [place] (1.002-1.030) Urine Protein (NEGATIVE) mg/dL Urine Glucose (UA) (NEGATIVE) mg/dL Urine Ketones (NEGATIVE) mg/dL Urine Occult Blood (NEGATIVE) Urine Nitrite (NEGATIVE) Urine Bilirubin (NEGATIVE) Urine Urobilinogen (NORMAL) E.U./dL Ur Leukocyte Esterase (NEGATIVE) Urine RBC (0-5) /HPF Urine WBC (0-5) /HPF Urine WBC Clumps Ur Squamous Epith Cells (<= Few) Urine Bacteria (None Seen) /HPF Ur Microscopic Review Urine Culture Comments Nasal Adenovirus (PCR) NOT DETECTED Nasal B. parapertussis DNA (PCR) NOT DETECTED Nasal Coronavir 229E PCR NOT DETECTED Nasal Coronavir HKU1 PCR NOT DETECTED Nasal Coronavir NL63 PCR NOT DETECTED Nasal Coronavir OC43 PCR NOT DETECTED Nasal Enterovir/Rhinovir PCR NOT DETECTED Nasal Influenza B PCR NOT DETECTED Nasal Influenza A PCR NOT DETECTED Nasal Parainfluen 1 PCR NOT DETECTED Nasal Parainfluen 2 PCR NOT DETECTED Nasal Parainfluen 3 PCR NOT DETECTED Nasal Parainfluen 4 PCR NOT DETECTED Nasal RSV (PCR) NOT DETECTED Nasal B.pertussis DNA PCR NOT DETECTED Nasal C.pneumoniae (PCR) NOT DETECTED Russ Human Metapneumo PCR NOT DETECTED Nasal M.pneumoniae (PCR) NOT DETECTED Nasal SARS-CoV-2 (PCR) NOT DETECTED ABX Reporting Has patient been on IV antibiotics over the past 48 hours?: Yes Assessment/Plan - Problem List (1) Acute renal failure Impression: She presented with a BUN in the 80s and a creatinine of 5. The etiology is still not quite clear. She is on lisinopril at home and hydrochlorothiazide which were likely contributing factors. She does not report a history of poor oral intake or vomiting/diarrhea. Her blood pressure was low on admission I wonder if there could be a component of ATN given the hypotension. Fortunately, her renal function is improving and her creatinine is down to 3.3. Ultrasound does not reveal any obvious obstruction. 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 We will continue to hold her MAL inhibitor and hydrochlorothiazide given the acute kidney injury. We will continue with IV hydration. At this time, there is no indication for dialysis. We will continue to monitor her renal function and urine output closely. Qualifiers: Acute renal failure type: unspecified Qualified Code(s): N17.9 - Acute kidney failure, unspecified (2) Altered mental status Impression: This has significantly improved. She is just about back to baseline. She is not disoriented but her speech is still a little delayed. This is secondary to her acute renal failure. CT the head was unremarkable. We will continue IV hydration and treat her underlying renal failure. Qualifiers: Altered mental status type: transient alteration of awareness Qualified Code(s): R40.4 - Transient alteration of awareness (3) Hypertension Impression: She is a history of hypertension for which she is on lisinopril/hydrochlorothiazide and amlodipine. She is currently normotensive. She was initially hypotensive on arrival to the emergency department. Her home) will continue to be held for the time being. I suspect he would likely discontinue both lisinopril hydrochlorothiazide on discharge. She may ultimately not need any hypertensives if her blood pressure remains the way it is. (4) Anemia Impression: She was anemic on admission with a hemoglobin of 10.1. This has decreased to 8.5 after IV fluids. The decrease is likely dilutional given amount of IV fluid she received. She reports no evidence of bleeding and denies dark tarry stools. We will check iron studies today. If hemoglobin continues to decrease, will check her stool for occult bleeding. (5) Urinary tract infection Impression: Urinalysis was suggestive of infection. She currently reports no dysuria, urgency, frequency. She was treated empirically given her white count and confusion on admission. At this point in time, it is not clear if she no longer has symptoms because she was treated or if this was just asymptomatic ba cteriuria. Urine culture is growing E. coli. In the uncertainty, we we will continue to oral Ceftin today and treat her for 5 days for presumed urinary tract infection. Qualifiers: Urinary tract infection type: acute cystitis Hematuria presence: without hematuria Qualified Code(s): N30.00 - Acute cystitis without hematuria (6) AAA (abdominal aortic aneurysm) Impression: She has distal abdominal aortic aneurysm with mural thrombus. I did speak with vascular surgery at [facility] [place] yesterday and they recommended just baby aspirin daily. They would like a CT angiogram at some point if possible once her renal function improves otherwise they will see her on an outpatient basis. This was discussed with the patient today. Qualifiers: Presence of rupture: without rupture Qualified Code(s): I71.4 - Abdominal aortic aneurysm, without rupture
[2020-09-12 07:56] LABS: % IRON SATURATION 24 % (20-50); IRON 60 ug/dL (28-170); TOTAL IRON BINDING CAPACITY 249 ug/dL (250-450); TRANSFERRIN 178 mg/dL (192-382)
[2020-09-12] MEDS: HEPARIN 5,000 UNIT/ML VIAL SUBQ SCH ×2 (08:18→21:21)
[2020-09-12] MEDS: ASPIRIN EC 81 MG TABLET PO SCH (08:19)
[2020-09-12] MEDS ORDERED: cefTRIAXone 1 GM in SODIUM CHLORIDE 0.9% MINIBAG 100 ML IV SCH (09:00)
--- NOTE | 2020-09-12 09:12 | Ultrasound Report ---
PROCEDURE: Retroperitoneal INDICATIONS: Acute kidney injury. TECHNIQUE: Real-time scanning was performed of the retroperitoneal organs, with image documentation. COMPARISON: None. FINDINGS: Kidneys: Kidneys are normal in size. Right kidney measures 9.6 cm long; left kidney measures 9.9 cm long. Right renal cortical thickness is 1.2 cm; left renal cortical thickness is 1.5 cm. No solid masses, hydronephrosis, or nephrolithiasis. The right kidney appears ectopic positioned anteriorly w ithin the right upper abdomen. There is associated mild prominence of the central renal pelvis. Miscellaneous: No free abdominal fluid. The prevoid bladder volume is 1 68 cc and the postvoid resi dual is essentially 0. Left but not the right ureteral jet is seen. IMPRESSION: The appearance of the right kidney was discussed with the patient who reports that the right kidney p ositioning has been previously documented and was congenital in origin. Note is made of a mild promin ence of the right renal pelvis and absence of visualization of a right ureteral jet. Depending on the clinical status (if there is concern for a obstructive ureteral stone) renal protoco l CT scanning may be warranted. CT KUB without contrast itself would provide visualization of a calcu latosha. Reviewed by: Karan Lawson MD on 09/12/2020 9:11 AM PST Approved by: Karan Lawson MD on 09/12/2020 9:11 AM PST Station ID: [id number]
[2020-09-12 16:35] LABS: CALCIUM 9.1 mg/dL (8.5-10.3); CREATININE 2.7 mg/dL (0.4-1.0); POTASSIUM 3.9 mmol/L (3.5-5.0)
[2020-09-13] MEDS: SODIUM CHLORIDE FLUSH 0.9% 10 ML SYRINGE IVP SCH ×3 (03:05→16:39)
[2020-09-13 04:45] LABS: BASOPHILS # (AUTO) 0.1 10^3/uL (0.0-0.1); BASOPHILS % (AUTO) 1.3 %; EOSINOPHILS # (AUTO) 0.3 10^3/uL (0.0-0.7); EOSINOPHILS % (AUTO) 3.5 %; HCT - HEMATOCRIT 24.2 % (37.0-47.0); HGB - HEMOGLOBIN 7.7 g/dL (12.0-16.0); LYMPHOCYTES # (AUTO) 1.2 10^3/uL (1.5-3.5); LYMPHOCYTES % (AUTO) 15.5 %; MEAN CORPUSCULAR HEMOGLOBIN 28.6 pg (27.0-31.0); MEAN CORPUSCULAR HGB CONC 31.8 g/dL (32.0-36.0); MEAN PLATELET VOLUME 9.7 fL (7.9-10.8); MONOCYTES # (AUTO) 0.6 10^3/uL (0.0-1.0); MONOCYTES % (AUTO) 7.5 %; NEUTROPHILS # (AUTO) 5.3 10^3/uL (1.5-6.6); NEUTROPHILS % (AUTO) 71.4 %; PLT - PLATELET COUNT 552 10^3/uL (130-450); RED BLOOD COUNT 2.69 10^6/uL (4.20-5.40); RED CELL DISTRIBUTION WIDTH 15.4 % (12.0-15.0); WHITE BLOOD COUNT 7.4 x10^3/uL (4.8-10.8)
[2020-09-13 05:08] LABS: CALCIUM 8.7 mg/dL (8.5-10.3); MAGNESIUM 2.1 mg/dL (1.7-2.8)
[2020-09-13] MEDS: LACTATED RINGERS 1,000 ML IV SCH ×3 (06:04→23:44)
--- NOTE | 2020-09-13 08:36 | PROVIDER PROGRESS NOTE ---
Subjective - Prog Note Date Prog Note Date: 09/13/20 - Subjective Subjective: She reports feeling well. Denies any nausea or vomiting. Reports no blood in her stool. Current Medications - Current Medications Current Medications: Active Medications Acetaminophen (Acetaminophen 325 Mg Tablet) 650 mg PO Q4HR PRN PRN Reason: Pain 1 to 4 Aspirin (Aspirin Ec 81 Mg Tablet) 81 mg PO DAILY [facility] Last Admin: 09/12/20 08:19 Dose: 81 mg Documented by: Cefuroxime Axetil (Cefuroxime Axetil 250 Mg Tablet) 250 mg PO BID [facility] Heparin Sodium (Porcine) (Heparin 5,000 Unit/Ml Vial) 5,000 unit SUBQ BID [facility] Last Admin: 09/12/20 21:21 Dose: Not Given Documented by: Lactated Ringer's (Lr) 1,000 mls @ 100 mls/hr IV .Q10H [facility] Ondansetron HCl (Ondansetron Odt 4 Mg Tablet) 4 mg TL Q6HR PRN PRN Reason: Nausea / Vomiting Sodium Chloride (Sodium Chloride Flush 0.9% 10 Ml Syringe) 10 ml IVP PRN PRN PRN Reason: NEEDED PER PROVIDER ORDERS Sodium Chloride (Sodium Chloride Flush 0.9% 10 Ml Syringe) 10 ml IVP 0100,0900,1700 [facility] Last Admin: 09/13/20 03:05 Dose: Not Given Documented by: Amlodipine Besylate 5 mg PO DAILY 02/27/20 Lisinopril/Hydrochlorothiazide [Lisinopril-Hctz 20-12.5 mg Tab] 1 each PO DAILY 02/27/20 Objective - Vital Signs/Intake & Output Reviewed Vital Signs: Yes Vital Signs: Vital Signs x48h Temp Pulse Resp BP BP Pulse Ox 09/13/20 08:00 36.8 C 72 16 128/60 97 09/13/20 04:15 37.0 C 87 18 113/83 H 95 Intake & Output: Intake & Output 09/10/20 09/11/20 09/12/20 09/13/20 23:59 23:59 23:59 23:59 Intake Total 1999 5085.0 962.5 Balance 1999 5085.0 962.5 - Objective General Appearance: positive: No acute distress, Alert Eyes Bilateral: positive: Normal inspection, Conjunctivae nml ENT: positive: ENT inspection nml Neck: positive: Nml inspection Respiratory: positive: No respiratory distress. negative: Wheezes, Rales Cardiovascular: positive: Regular rate & rhythm, No murmur. negative: Tachycardia Abdomen: positive: Non-tender, No distention Skin: positive: Warm, Dry. negative: Pallor Extremities: positive: Full ROM, No pedal edema Neurologic/Psychiatric: negative: Disoriented to person, Disoriented to place - Lab Results Fish Bones: 09/13/20 04:17 09/13/20 04:17 Other Labs: Lab Results x24hrs 09/13/20 09/13/20 09/13/20 Range/Units 04:17 04:17 04:17 WBC 7.4 (4.8-10.8) x10^3/uL RBC 2.69 L (4.20-5.40) 10^6/uL Hgb 7.7 L (12.0-16.0) g/dL Hct 24.2 L (37.0-47.0) % MCV 90.0 (81.0-99.0) fL MCH 28.6 (27.0-31.0) pg MCHC 31.8 L (32.0-36.0) g/dL RDW 15.4 H (12.0-15.0) % Plt Count 552 H (130-450) 10^3/uL MPV 9.7 (7.9-10.8) fL Neut # (Auto) 5.3 (1.5-6.6) 10^3/uL Lymph # (Auto) 1.2 L (1.5-3.5) 10^3/uL [place] # (Auto) 0.6 (0.0-1.0) 10^3/uL Eos # (Auto) 0.3 (0.0-0.7) 10^3/uL Baso # (Auto) 0.1 (0.0-0.1) 10^3/uL Absolute Nucleated RBC 0.00 x10^3/uL Nucleated RBC % 0.0 /100WBC Sodium 144 (135-145) mmol/L Potassium 4.0 (3.5-5.0) mmol/L Chloride 111 (101-111) mmol/L Carbon Dioxide 23 (21-32) mmol/L Anion Gap 10.0 (6-13) BUN 89 H* (6-20) mg/dL Creatinine 2.0 H (0.4-1.0) mg/dL Estimated GFR (MDRD) 24 L (>89) Glucose 102 H (70-100) mg/dL Calcium 8.7 (8.5-10.3) mg/dL Phosphorus 3.0 (2.5-4.6) mg/dL Magnesium 2.1 (1.7-2.8) mg/dL TSH 2.15 (0.34-5.60) uIU/mL 09/12/20 Range/Units 16:06 WBC (4.8-10.8) x10^3/uL RBC (4.20-5.40) 10^6/uL Hgb (12.0-16.0) g/dL Hct (37.0-47.0) % MCV (81.0-99.0) fL MCH (27.0-31.0) pg MCHC (32.0-36.0) g/dL RDW (12.0-15.0) % Plt Count (130-450) 10^3/uL MPV (7.9-10.8) fL Neut # (Auto) (1.5-6.6) 10^3/uL Lymph # (Auto) (1.5-3.5) 10^3/uL [place] # (Auto) (0.0-1.0) 10^3/uL Eos # (Auto) (0.0-0.7) 10^3/uL Baso # (Auto) (0.0-0.1) 10^3/uL Absolute Nucleated RBC x10^3/uL Nucleated RBC % /100WBC Sodium 142 (135-145) mmol/L Potassium 3.9 (3.5-5.0) mmol/L Chloride 110 (101-111) mmol/L Carbon Dioxide 23 (21-32) mmol/L Anion Gap 9.0 (6-13) BUN 115 H* (6-20) mg/dL Creatinine 2.7 H (0.4-1.0) mg/dL Estimated GFR (MDRD) 17 L (>89) Glucose 122 H (70-100) mg/dL Calcium 9.1 (8.5-10.3) mg/dL Phosphorus (2.5-4.6) mg/dL Magnesium (1.7-2.8) mg/dL TSH (0.34-5.60) uIU/mL ABX Reporting Has patient been on IV antibiotics over the past 48 hours?: No Assessment/Plan - Problem List (1) Acute renal failure Impression: This was prerenal injury and I suspect was likely due to hypotension from her antihypertensives which was further compounded by her being on lisinopril. Her renal function has significantly improved since admission and her BUN continues to decrease. Renal ultrasound did not reveal any hydronephrosis or concern for obstruction. We will continue her on IV hydration but decrease her lactated Ringer's to 100 mL an hour. I suspect she will be able to go home tomorrow. Qualifiers: Acute renal failure type: unspecified Qualified Code(s): N17.9 - Acute kidney failure, unspecified (2) Anemia Impression: She presented with a hemoglobin of 10.1 and it has since been decreasing on a daily basis and today it is 7.7. I suspect a component of this is likely hemodilutional given the large amount of IV fluids she has received Iron stud ies were not suggestive of iron deficiency anemia. Her ferritin was elevated but this is likely due to it being an acute phase reactant. She also has a thrombocytosis. She reports no evidence of bleeding. We will check her stool for occult bleeding. We will recheck her hemoglobin this evening. We will continue to monitor for signs of bleeding. We will hold off on transfusion unless her hemoglobin continues to decline. (3) Hypertension Impression: She has remained normotensive during this hospitalization and I suspect that we will likely discontinue all of her antihypertensives on discharge. We will continue to monitor her blood pressure. (4) Urinary tract infection Impression: Her urine culture has grown E. coli. Although this could be asymptomatic bacteriuria, it was difficult to assess for symptoms on admission given heart mental status and although she denies symptoms now, it is not clear if this is because she was adequately treated therefore we will treat her empirically. Today is day 3 of antibiotics and she has been transitioned to oral Ceftin. She will need 5 days of therapy. Qualifiers: Urinary tract infection type: acute cystitis Hematuria presence: without hematuria Qualified Code(s): N30.00 - Acute cystitis without hematuria (5) AAA (abdominal aortic aneurysm) Impression: This was an incidental finding on ultrasound. This was discussed with vascular surgery at [place] who recommended outpatient follow-up and to continue aspirin 81 mg daily. I discussed this with the patient and her and they are aware of the need for outpatient follow-up. Qualifiers: Presence of rupture: without rupture Qualified Code(s): I71.4 - Abdominal aortic aneurysm, without rupture (6) Altered mental status Impression: This was secondary to her acute renal failure and has resolved. Qualifiers: Altered mental status type: transient alteration of awareness Qualified Code(s): R40.4 - Transient alteration of awareness
[2020-09-13] MEDS: ASPIRIN EC 81 MG TABLET PO SCH (09:03)
--- NOTE | 2020-09-13 11:30 | PHARMACY PROGRESS NOTE ---
- Best Possible Medication History Admit Date and Time: 09/11/20 1831 Processed by: Pharmacy Medication History completed: Yes Patient Interview: Completed Secondary Source(s): Physician records As the person ultimately responsible for medication therapy, providers are able to order a medication from an existing home medication list in [facility] via the "Reconcile Routine" prior to Confirmation of that medication by sales support associate. Such practice is discouraged except when the physician, in their clinical judgment, deems that a medical need exists for a medication without regard to previous use.
[2020-09-13 14:56] LABS: HCT - HEMATOCRIT 28.5 % (37.0-47.0); HGB - HEMOGLOBIN 8.9 g/dL (12.0-16.0)
[2020-09-14] MEDS: SODIUM CHLORIDE FLUSH 0.9% 10 ML SYRINGE IVP SCH ×2 (01:00→08:15)
[2020-09-14 04:37] LABS: BASOPHILS # (AUTO) 0.1 10^3/uL (0.0-0.1); BASOPHILS % (AUTO) 1.3 %; EOSINOPHILS # (AUTO) 0.3 10^3/uL (0.0-0.7); EOSINOPHILS % (AUTO) 4.2 %; HCT - HEMATOCRIT 24.1 % (37.0-47.0); HGB - HEMOGLOBIN 7.8 g/dL (12.0-16.0); LYMPHOCYTES # (AUTO) 1.8 10^3/uL (1.5-3.5); LYMPHOCYTES % (AUTO) 22.6 %; MEAN CORPUSCULAR HEMOGLOBIN 29.4 pg (27.0-31.0); MEAN CORPUSCULAR HGB CONC 32.4 g/dL (32.0-36.0); MEAN CORPUSCULAR VOLUME 90.9 fL (81.0-99.0); MEAN PLATELET VOLUME 9.9 fL (7.9-10.8); MONOCYTES # (AUTO) 0.7 10^3/uL (0.0-1.0); MONOCYTES % (AUTO) 8.8 %; NEUTROPHILS # (AUTO) 4.9 10^3/uL (1.5-6.6); NEUTROPHILS % (AUTO) 62.7 %; PLT - PLATELET COUNT 544 10^3/uL (130-450); RED BLOOD COUNT 2.65 10^6/uL (4.20-5.40); RED CELL DISTRIBUTION WIDTH 15.1 % (12.0-15.0); WHITE BLOOD COUNT 7.8 x10^3/uL (4.8-10.8)
[2020-09-14 04:47] LABS: CALCIUM 8.5 mg/dL (8.5-10.3); CREATININE 1.5 mg/dL (0.4-1.0); MAGNESIUM 1.6 mg/dL (1.7-2.8); PHOSPHORUS 2.6 mg/dL (2.5-4.6); POTASSIUM 3.6 mmol/L (3.5-5.0)
--- NOTE | 2020-09-14 07:56 | Discharge Plan ---
Discharge Plan Problem Reviewed?: Yes Disposition: Home, Self Care Condition: Stable Prescriptions: cefUROXime axetiL [Ceftin] 250 mg PO BID 2 Days #3 tablet Diet: Low Sodium Activity Restrictions: Activity as Tolerated Instruction Topics: Aneurysm Abdominal Aortic Health Concerns: You were in the hospital because of confusion due to renal failure. It is likely you had renal failure because your blood pressure was low at home from your blood pressure medications. You improved with IV fluids and your kidney numbers are nearly back to baseline now. Your blood pressure has been stable during this hospitalization. We are going to discontinue your blood pressure medications until you follow-up with your primary care provider. You were also found to have an aneurysm of the aorta with a small thrombus present. This was discussed with the surgeon at [place] and they recommend you continue to take a baby aspirin a day. Your primary care provider should refer you to a vascular surgery so that they can follow this up on an outpatient basis. Your blood counts were also found to be low during this hospitalization. They have since stabilized. This may be due to the renal failure you had. There has not been any evidence of bleeding and we tested your stool for blood which was negative. Your body will make the blood cells over the next period of weeks. You can continue to follow-up with your primary care provider. Plan of Treatment: Please stop taking your blood pressure medications. Please continue to take aspirin 81 mg daily. Take the antibiotics for 2 more days. You will need 1 dose this evening and then twice a day tomorrow. This is for a possible urinary tract infection. Assessment: The patient and family expressed understanding of the treatment plan. Additional Instructions or Follow Up instructions: Please follow-up with your primary care provider in 1 to 2 weeks. They can recheck your labs to ensure that they are stable. They can also check your blood pressure as if it is elevated, they can consider resuming one of your blood pressure medications at a lower dose. They should also refer you to a vascular surgeon so that they can evaluate you for the aneurysm. If you notice any bleeding at home or become dizzy, lightheaded, fatigued, short of breath then please come to the emergency department. No Smoking: If you smoke, Please STOP! Call for help. Follow-up with: SARAHI VUONG PA-C [Primary Care Provider] -
[2020-09-14] MEDS ORDERED: MAGNESIUM OXIDE 400 MG TABLET PO ONE (08:00)
[2020-09-14] MEDS: ASPIRIN EC 81 MG TABLET PO SCH (08:14)
[2020-09-14 12:21] LABS: HCT - HEMATOCRIT 26.2 % (37.0-47.0); HGB - HEMOGLOBIN 8.3 g/dL (12.0-16.0)
--- NOTE | 2020-09-14 12:55 | DISCHARGE SUMMARY ---
"Discharge Summary Admit Date: 09/11/20 Discharge Date: 09/14/20 Discharging Provider: Matthias Jenkins Primary Care Provider: Kit Nunn Code Status: Do Not Attempt Resuscitation Condition at Discharge: Stable Discharge Disposition: 01 Home, Self Care - DIAGNOSES Admission Diagnoses: Acute renal failure Altered mental status Dehydration Urinary tract infection Hypertension Abdominal aortic aneurysm Discharge Diagnoses with Status of Each Condition: Acute renal failure - improved. Anemia - stable. Hypertension - stable. Urinary tract infection - improved. Abdominal aortic aneurysm - stable. Altered mental status - resolved. - HPI History of Present Illness: H&P per Dr. Duran: Patient is a 74-year-old female with medical history significant for hypertension who was brought in by her today for altered mental status. The patient does not have specific recollection of what made her concerned and her is currently unreachable through phone. A message has been left for him to contact the night time physician. According to the HPI of the ED physicians H&P it appears the patient which just staring blankly at a computer as if trying to figure out how it works for the first time. Work-up in the ED included BMP which showed a creatinine of 5.0 and BUN 187. The patient also had a UA which showed bacteria and white blood cells. Further work- up included an ultrasound of the abdomen pelvis which showed a distal abdominal aortic aneurysm with an eccentric thrombus. Nephrology was contacted by the ED physician and they advised initial treatment with IV hydration and the hospital. Furthermore that if there was no improvement then the patient could be transferred at that point. Vascular surgery was also contacted for the aneurysm. They advised that no imm ediate intervention was needed and to place the patient on aspirin. Also to get a CT angio of the abdomen pelvis when appropriate to do so. The patient was presented for admission for further treatment which at this time includes IV hydration and antibiotics. At bedside she is alert and awake. She denies any complaints. She denies chest pain, dyspnea, abdominal pain, nausea, vomiting, fever or chills. The rest of her history is unremarkable. - CONSULTS | PROCEDURES Procedures: Retroperitoneal limited ultrasound on September 11 revealed a distal aortic a neurysm measuring 4.6 x 5 cm in diameter with eccentric mural thrombus measured measuring 8.9 cm in length with no evidence of acute extravasation. Retroperitoneal ultrasound on September 11 for acute kidney injury showed normal kidney size. No evidence of hydronephrosis. 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 - HOSPITAL COURSE Hospital Course: She was admitted for altered status and acute renal failure. Her altered mental status was attributed to the elevated BUN which was in the 180s. Given there was no indication for dialysis and her renal function improved with IV fluids in the emergency department, she was not transferred to higher level of care. It was felt that the renal failure was likely due to hypotension from and hypertensives given her blood pressure has been normal during this hospitalization. She responded well to IV fluids. Ultrasound of the kidneys did not reveal any obstruction. An ultrasound obtained emergency department was concerning for abdominal aortic aneurysm with a mural thrombus. This was discussed with vascular surgery at [place] who recommended a baby aspirin a day and outpatient follow-up. Urinalysis was suggestive of infection and urine culture grew E. coli. Given she was altered on admission and could not tell us if she had symptoms, she was treated empirically. She was discharged on oral Ceftin to complete a total of 5 days of therapy. Her home antihypertensives we re discontinued on discharge given her blood pressure has been stable. On day of discharge, her creatinine had improved to 1.5 from 5 and her BUN was decreased to 47 from 187. He was encouraged to drink plenty of fluids at home and to follow-up with her primary care provider. Also during his hosp italization, she was found to be anemic. Her hemoglobin was initially in the low tens and this decreased to as low as 7.7 after receiving IV fluids. Iron studies were checked and this was not suggestive of iron deficiency anemia. Her stool was checked for bleeding and this was negative. Her hemoglobin had remained stable over the past 36 hours without evidence of bleeding. She was asked to follow-up with her primary care provider and to have repeat labs. - ALLERGIES Allergies/Adverse Reactions: Allergies Allergy/AdvReac Type Severity Reaction Status Date / Time pollen extracts Allergy Respiratory Verified 09/11/20 11:58 - MEDICATIONS Home Medications: Ambulatory Orders Medication Instructions Recorded Confirmed Chlorpheniramine Maleate [Allergy 4 mg PO Q4H PRN 09/13/20 09/13/20 4-Hour] Aspirin EC [Ecotrin] 81 mg PO DAILY #0 tablet 09/14/20 cefUROXime axetiL [Ceftin] 250 mg PO BID 2 Days #3 tablet 09/14/20 - PHYSICAL EXAM AT DISCHARGE General Appearance: positive: No acute distress, Alert Eyes Bilateral: positive: Normal inspection, Conjunctivae nml ENT: positive: ENT inspection nml Neck: positive: Nml inspection Respiratory: positive: No respiratory distress. negative: Wheezes, Rales Cardiovascular: positive: Regular rate & rhythm, No murmur. negative: Tachycardia, Systolic murmur Abdomen: positive: Non-tender, No distention. negative: Tenderness, Guarding, Rebound Skin: positive: Warm, Dry Extremities: positive: Full ROM, No pedal edema Neurologic/Psychiatric: positive: Motor nml. negative: Disoriented to person, Disoriented to place Physical Exam Other/Comments: Vital Signs - 24 hr 09/13/20 09/13/20 09/14/20 16:28 21:00 00:04 Temperature 36.3 C L 36.2 C L 36.6 C Heart Rate [ 76 76 80 Monitoring electrodes] Respiratory 20 18 18 Rate Blood Pressure 138/75 H 134/34 H 140/86 H [Left Brachial artery] O2 Saturation 98 99 97 09/14/20 09/14/20 09/14/20 04:00 09:00 13:00 Temperature 36.9 C 36.6 C 36.6 C Heart Rate [ 96 90 88 Monitoring electrodes] Respiratory 18 18 18 Rate Blood Pressure 148/88 H 130/69 128/68 [Left Brachial artery] O2 Saturation 102 H 98 98 Oxygen O2 Source Room air - LABS Result Diagrams: 09/14/20 12:07 09/14/20 04:15 Other Lab Results: Laboratory Results - last 24 hr 09/13/20 09/14/20 09/14/20 14:36 04:15 04:15 WBC 7.8 RBC 2.65 L Hgb 8.9 L 7.8 L Hct 28.5 L 24.1 L MCV 90.9 MCH 29.4 MCHC 32.4 RDW 15.1 H Plt Count 544 H MPV 9.9 Neut # (Auto) 4.9 Lymph # (Auto) 1.8 [place] # (Auto) 0.7 Eos # (Auto) 0.3 Baso # (Auto) 0.1 Absolute Nucleated RBC 0.00 Nucleated RBC % 0.0 Sodium 140 Potassium 3.6 Chloride 107 Carbon Dioxide 25 Anion Gap 8.0 BUN 47 H Creatinine 1.5 H Estimated GFR (MDRD) 34 L Glucose 102 H Calcium 8.5 Phosphorus 2.6 Magnesium 1.6 L 09/14/20 12:07 WBC RBC Hgb 8.3 L Hct 26.2 L MCV MCH MCHC RDW Plt Count MPV Neut # (Auto) Lymph # (Auto) [place] # (Auto) Eos # (Auto) Baso # (Auto) Absolute Nucleated RBC Nucleated RBC % Sodium Potassium Chloride Carbon Dioxide Anion Gap BUN Creatinine Estimated GFR (MDRD) Glucose Calcium Phosphorus Magnesium - DIAGNOSTIC IMAGING Diagnostic Imaging Results: Final report reviewed - FOLLOW UP Follow Up: She was asked to follow-up with her primary care provider next week to ensure that her blood pressure stable. She was asked to continue her antibiotics as prescribed. She was asked to follow-up with her primary care provider to ensure that her renal function and hemoglobin are stable. - TIME SPENT Time Spent in Discharge (Minutes): 34"
[2020-09-14 14:02] VITALS: BP 128/68
== END 2020-09-14 13:45 | disposition home or self-care (01) | DRG 683 ==
LOC: ED 11:53 → MS3 18:31
PROVIDERS: ADMIT Internal Medicine; ATTEND Internal Medicine
DX: N17.9 Acute kidney failure, unspecified (principal); I74.09 Other arterial embolism and thrombosis of abdominal aorta; N30.00 Acute cystitis without hematuria; B96.20 Unspecified Escherichia coli [E. coli] as the cause of diseases classified elsewhere; D64.9 Anemia, unspecified; E86.0 Dehydration; R40.4 Transient alteration of awareness; I71.4 Abdominal aortic aneurysm, without rupture; T46.4X5A Adverse effect of angiotensin-converting-enzyme inhibitors, initial encounter; T50.2X5A Adverse effect of carbonic-anhydrase inhibitors, benzothiadiazides and other diuretics, initial encounter; Y92.009 Unspecified place in unspecified non-institutional (private) residence as the place of occurrence of the external cause; I10 Essential (primary) hypertension; H26.9 Unspecified cataract; H54.7 Unspecified visual loss; Z87.891 Personal history of nicotine dependence; Z79.899 Other long term (current) drug therapy
CPT/HCPCS: 36415; 70450; 71045; 76770; 76775; 80048; 80053; 81001; 82272; 82728; 83540; 83605; 83690; 83735; 84100; 84443; 84466; 85014; 85018; 85025; 87040; 87086; 87181; 87631; 96360; 96361; 99283; 99285; A9270; J7120; 0202U; 81003

== ENCOUNTER 2020-09-16 20:43 | Outpatient (CLI) | payer MEDICARE, OTHER | END 2020-09-16 20:44 | disposition critical access hospital (66) | LOC: EMS 20:43 | PROVIDERS: ATTEND Surgery | DX: R41.0 Disorientation, unspecified (principal) | CPT/HCPCS: A0425; A0429 ==

== ENCOUNTER 2020-09-16 21:05 | Emergency (ER) | payer MEDICARE, OTHER ==
--- NOTE | 2020-09-16 21:47 | ED Physician Documentation ---
PD HPI ALTERED MENTAL STATUS - Stated complaint Stated Complaint: ALOC - Chief complaint Chief Complaint: Neuro - History obtained from History obtained from: Patient, Family (I had d/w patient's son (Eh) via phone conversation), EMS - History of Present Illness Timing - onset: Today Timing - details: Intermittant Quality / character: Confused Associated symptoms: No: Fever, Headache, Dyspnea, Cough, NVD, Urinary sx, General weakness, Focal weakness Contributing factors: No: Recent illness, Recent injury, Intoxicated, Known dementia Basline status: Alert and oriented X 3, Ambulatory, Independent Recently seen: Admitted (admitted to [facility] 09/11/20 and discharged 09/14/20) - Additional information Additional information: patient says she is here because of family's concern that "I guess I have memory issues" (per patient). She says she currently feels well and has no c/o. Patient's son (I conversed with son, Eh, over phone) says patient has had episodes of confusion recently and again tonight. Patient was admitted to [facility] for AMS 09/11/20 and discharged 09/14/20. No definite etiology for her AMS was found, although amongst significant findings were AAA and KAYLIE with creatinine of 5.0 and BUN 187 (felt to be likely at least contributing to AMS), as well as anemia without apparent etiology. Her bun/creatinine significantly improved during inpatient stay as did her mental status. Review of Systems Constitutional: denies: Fever, Chills, Myalgias, Sweats Eyes: denies: Loss of vision, Decreased vision Cardiac: reports: Reviewed and negative Respiratory: reports: Reviewed and negative GI: reports: Reviewed and negative : denies: Dysuria, Frequency Musculoskeletal: denies: Neck pain, Back pain Neurologic: reports: Confused, Altered mental status. denies: Generalized weakn ess, Focal weakness, Numbness, Headache, Head injury PD PAST MEDICAL HISTORY - Past Medical History Cardiovascular: Hypertension, Arrhythmia Respiratory: None Endocrine/Autoimmune: None GI: None : None HEENT: Chronic vision loss, Chronic sinusitis Psych: None Musculoskeletal: Osteoarthritis Derm: None - Past Surgical History Past Surgical History: Yes HEENT: Cataracts - Present Medications Home Medications: Ambulatory Orders Medication Instructions Recorded Confirmed Aspirin EC [Ecotrin] 81 mg PO DAILY #0 tablet 09/14/20 09/16/20 - Allergies Allergies/Adverse Reactions: Allergies Allergy/AdvReac Type Severity Reaction Status Date / Time pollen extracts Allergy Respiratory Verified 09/16/20 23:16 - Social History Does the pt smoke?: No Smoking Status: Never smoker Does the pt drink ETOH?: No Does the pt have substance abuse?: No - Immunizations Immunizations are current?: Yes - POLST Patient has POLST: No POLST Status: DNR PD ED PE NORMAL - Vitals Vital signs reviewed: Yes - General General: No acute distress, Well developed/nourished, Other (awake, alert, conversant, oriented x 2 (self and location; asked what month it is, she states her birthday (day, date, year). When reasked month, she replies "2019". Asked again to name the month, she cannot)) - HEENT HEENT: Atraumatic, PERRL, EOMI, Moist mucous membranes - Neck Neck: Supple, no meningeal sign - Cardiac Cardiac: RRR, No murmur - Respiratory Respiratory: No respiratory distress, Clear bilaterally - Abdomen Abdomen: Soft, Non tender, Other (nontender, pulsatile midline mass c/w AAA) - Back Back: No CVA TTP - Derm Derm: Normal color, Warm and dry, No rash - Extremities Extremities: No edema - Neuro Neuro: engineer 2-12 intact, No motor deficit, No sensory deficit, Normal speech Eye Opening: Spontaneous Motor: Obeys Commands Verbal: Confused GCS Score: 14 - Psych Psych: Normal mood, Normal affect Results - Vitals Vitals: Vital Signs - 24 hr 09/16/20 09/16/20 09/17/20 21:12 23:14 00:56 Temperature 36.2 C L 36.4 C L 36.5 C Heart Rate 99 97 80 Respiratory 20 22 16 Rate Blood Pressure 137/94 H 156/86 H 150/84 H O2 Saturation 95 100 97 Oxygen O2 Source Room air - Labs Labs: Laboratory Tests 09/16/20 09/16/20 09/16/20 22:02 22:02 23:48 WBC 9.3 RBC 2.92 L Hgb 8.6 L Hct 26.9 L MCV 92.1 MCH 29.5 MCHC 32.0 RDW 14.6 Plt Count 566 H MPV 9.8 Neut # (Auto) 7.0 H Lymph # (Auto) 1.3 L Randall # (Auto) 0.7 Eos # (Auto) 0.2 Baso # (Auto) 0.1 Absolute Nucleated RBC 0.00 Nucleated RBC % 0.0 Sodium 139 Potassium 3.2 L Chloride 104 Carbon Dioxide 27 Anion Gap 8.0 BUN 27 H Creatinine 1.9 H Estimated GFR (MDRD) 26 L Glucose 149 H Calcium 8.6 Total Bilirubin 0.2 AST 46 H ALT 21 Alkaline Phosphatase 68 Total Protein 6.7 Albumin 3.3 Globulin 3.4 Albumin/Globulin Ratio 1.0 Lipase 88 H Urine Color YELLOW Urine Clarity CLEAR Urine pH 6.0 Ur Specific Bim 1.020 Urine Protein TRACE Urine Glucose (UA) NEGATIVE Urine Ketones NEGATIVE Urine Occult Blood TRACE-INTA Urine Nitrite NEGATIVE Urine Bilirubin NEGATIVE Urine Urobilinogen 0.2 (NORMAL) Ur Leukocyte Esterase LARGE H Urine RBC 0-5 Urine WBC 11-25 H Ur Squamous Epith Cells MOD Squamous H Urine Bacteria Few Ur Microscopic Review INDICATED Urine Culture Comments NOT INDICATED PD MEDICAL DECISION MAKING - ED course Complexity details: reviewed old records, reviewed results, re-evaluated patient, considered differential, d/w patient, d/w family ED course: abnormalities on tonight's lab tests are c/w recent inpatient results (anemia mildly improved from previous, BUN/creatinine 27/1.9 which does not represent a significant change from values at time of recent hospital discharge nor would explain AMS). Patient is conversant and appropriate with mild confusion as noted above (cannot name the month; she is able to name all of her medications albeit needing some time to recall them). No focal neurologic deficits on exam. No indication at this time for further ED nor inpatient w/u, but I stressed to patient and her son (via telephone conversation) the importance of f/u for the abnormalities found on tonight's w/u (and noted on recent admission, such as anemia, abnormal kidney tests, and aortic aneurysm). Departure - Departure Disposition: 01 Home, Self Care Clinical Impression: Altered mental status Qualifiers: Altered mental status type: disorientation Qualified Code(s): R41.0 - Disorientation, unspecified Condition: Good Instructions: ED Confusion Comments: Follow up with your primary care provider; call in the morning to arrange for next available appointment Discharge Date/Time: 09/17/20 00:58
[2020-09-16 22:09] LABS: BASOPHILS # (AUTO) 0.1 10^3/uL (0.0-0.1); BASOPHILS % (AUTO) 0.9 %; EOSINOPHILS # (AUTO) 0.2 10^3/uL (0.0-0.7); EOSINOPHILS % (AUTO) 1.7 %; HGB - HEMOGLOBIN 8.6 g/dL (12.0-16.0); LYMPHOCYTES # (AUTO) 1.3 10^3/uL (1.5-3.5); LYMPHOCYTES % (AUTO) 13.5 %; MEAN CORPUSCULAR HEMOGLOBIN 29.5 pg (27.0-31.0); MEAN CORPUSCULAR VOLUME 92.1 fL (81.0-99.0); MEAN PLATELET VOLUME 9.8 fL (7.9-10.8); MONOCYTES # (AUTO) 0.7 10^3/uL (0.0-1.0); MONOCYTES % (AUTO) 7.9 %; NEUTROPHILS % (AUTO) 75.7 %; PLT - PLATELET COUNT 566 10^3/uL (130-450); RED BLOOD COUNT 2.92 10^6/uL (4.20-5.40); RED CELL DISTRIBUTION WIDTH 14.6 % (12.0-15.0); WHITE BLOOD COUNT 9.3 x10^3/uL (4.8-10.8)
[2020-09-16 22:20] LABS: ALBUMIN 3.3 g/dL (3.2-5.5); BILIRUBIN,TOTAL 0.2 mg/dL (0.2-1.0); CALCIUM 8.6 mg/dL (8.5-10.3); CREATININE 1.9 mg/dL (0.4-1.0); TOTAL PROTEIN 6.7 g/dL (6.7-8.2)
[2020-09-16] MEDS ORDERED: SODIUM CHLORIDE 0.9% 1,000 ML IV STA (22:35)
[2020-09-16 23:55] LABS: BILIRUBIN,URINE NEGATIVE (NEGATIVE); GLUCOSE, URINE (UA) NEGATIVE (NEGATIVE); KETONES,URINE (UA) NEGATIVE (NEGATIVE); LEUKOCYTE ESTERASE, URINE LARGE (NEGATIVE); NITRITE,URINE NEGATIVE (NEGATIVE); OCCULT BLOOD,URINE TRACE-INTA (NEGATIVE); PROTEIN,URINE TRACE mg/dL (NEGATIVE); UROBILINOGEN,URINE 0.2 (NORMAL) E.U./dL (NORMAL)
[2020-09-16 23:57] LABS: CLARITY,URINE CLEAR (CLEAR)
[2020-09-17 00:10] LABS: BACTERIA,URINE Few /HPF (None Seen); RBC,URINE 0-5 /HPF (0-5); SQUAMOUS EPITHELIAL CELL,UR MOD Squamous (<= Few)
[2020-09-17 00:58] VITALS: BP 150/84
== END 2020-09-17 00:58 | disposition home or self-care (01) ==
LOC: EDUNIT# → ED 21:05
DX: R41.0 Disorientation, unspecified (principal); I10 Essential (primary) hypertension; I71.4 Abdominal aortic aneurysm, without rupture; Z79.82 Long term (current) use of aspirin; Z66 Do not resuscitate; N17.9 Acute kidney failure, unspecified; D64.9 Anemia, unspecified; G93.40 Encephalopathy, unspecified
CPT/HCPCS: 36415; 80053; 81001; 81003; 82378; 82607; 82746; 83690; 84443; 85025; 85610; 87086; 96360; 99283

== ENCOUNTER 2020-09-17 14:12 | Outpatient (CLI) | payer MEDICARE, OTHER ==
[2020-09-17 19:57] LABS: BILIRUBIN,URINE NEGATIVE (NEGATIVE); GLUCOSE, URINE (UA) NEGATIVE (NEGATIVE); KETONES,URINE (UA) NEGATIVE (NEGATIVE); LEUKOCYTE ESTERASE, URINE MODERATE (NEGATIVE); NITRITE,URINE NEGATIVE (NEGATIVE); OCCULT BLOOD,URINE NEGATIVE (NEGATIVE); PROTEIN,URINE NEGATIVE (NEGATIVE); UROBILINOGEN,URINE 0.2 (NORMAL) E.U./dL (NORMAL)
[2020-09-17 20:00] LABS: BASOPHILS # (AUTO) 0.1 10^3/uL (0.0-0.1); BASOPHILS % (AUTO) 1.1 %; EOSINOPHILS # (AUTO) 0.2 10^3/uL (0.0-0.7); EOSINOPHILS % (AUTO) 1.7 %; HGB - HEMOGLOBIN 8.4 g/dL (12.0-16.0); LYMPHOCYTES # (AUTO) 1.3 10^3/uL (1.5-3.5); LYMPHOCYTES % (AUTO) 13.9 %; MEAN CORPUSCULAR HEMOGLOBIN 28.7 pg (27.0-31.0); MEAN CORPUSCULAR HGB CONC 30.3 g/dL (32.0-36.0); MEAN CORPUSCULAR VOLUME 94.5 fL (81.0-99.0); MEAN PLATELET VOLUME 10.5 fL (7.9-10.8); MONOCYTES # (AUTO) 0.5 10^3/uL (0.0-1.0); MONOCYTES % (AUTO) 5.8 %; NEUTROPHILS % (AUTO) 77.2 %; PLT - PLATELET COUNT 587 10^3/uL (130-450); RED BLOOD COUNT 2.93 10^6/uL (4.20-5.40); RED CELL DISTRIBUTION WIDTH 14.8 % (12.0-15.0); WHITE BLOOD COUNT 9.1 x10^3/uL (4.8-10.8)
[2020-09-17 20:09] LABS: CLARITY,URINE HAZY (CLEAR)
[2020-09-17 20:10] LABS: BACTERIA,URINE Few /HPF (None Seen); RBC,URINE None Seen /HPF (0-5); SQUAMOUS EPITHELIAL CELL,UR FEW Squamous (<= Few)
[2020-09-17 20:17] LABS: INR 1.1 (0.8-1.2); PT - PROTHROMBIN TIME 12.1 secs (9.9-12.6)
[2020-09-17 20:44] LABS: ALBUMIN 3.4 g/dL (3.2-5.5); BILIRUBIN,TOTAL 0.4 mg/dL (0.2-1.0); CALCIUM 8.7 mg/dL (8.5-10.3); CREATININE 1.4 mg/dL (0.4-1.0); TOTAL PROTEIN 6.8 g/dL (6.7-8.2)
[2020-09-17 20:53] LABS: FOLATE 14.5 ng/mL (5.90 - >24.8)
== END 2020-09-17 14:13 | disposition home or self-care (01) ==
LOC: LAB.S 14:12
PROVIDERS: ATTEND Internal Medicine
DX: N17.9 Acute kidney failure, unspecified (principal); D64.9 Anemia, unspecified; G93.40 Encephalopathy, unspecified
CPT/HCPCS: 36415; 80053; 81001; 82378; 82607; 82746; 85025; 85610

== ENCOUNTER 2020-09-18 09:12 | Outpatient (CLI) | payer MEDICARE, OTHER ==
--- NOTE | 2020-09-18 11:00 | MRI Report ---
PROCEDURE: Brain W/O INDICATIONS: ALTERED MENTAL STATUS TECHNIQUE: Noncontrast axial T1 spin echo, axial T2 fast spin echo, sagittal and axial FLAIR, coronal T2 fast sp in echo, axial gradient echo, axial diffusion and ADC through the brain. COMPARISON: None. FINDINGS: Image quality: Excellent. CSF Spaces: Basal cisterns are patent. No extra-axial fluid collections. Ventricles are normal in size and shape. Brain: No intracranial masses or hemorrhage. Shea/white matter interface is normal. Brainstem appe ars normal. Diffusion-weighted images demonstrate no acute ischemic insult. No chronic ischemic ins ults. Normal intravascular flow voids are present. Age-related volume loss and moderate to severe s mall vessel ischemic change. Skull and face: Calvarium has normal marrow signal. Orbits appear normal. Sinuses: Partial opacification of the left mastoids. Paranasal sinuses and right mastoids are clear. IMPRESSION: 1. Age-related volume loss and moderate to severe small vessel ischemic change. 2. No evidence acute stroke, hemorrhage, or mass. 3. Partial opacification of the left mastoids incidentally noted. Suggest clinical correlation for pr esence or absence of symptomatology. Reviewed by: Drew Us MD on 09/18/2020 10:58 AM PST Approved by: Drew Us MD on 09/18/2020 10:58 AM PST Station ID: [id number]
== END 2020-09-18 09:13 | disposition home or self-care (01) ==
LOC: DI 09:12
PROVIDERS: ATTEND Internal Medicine
DX: R41.82 Altered mental status, unspecified (principal)
CPT/HCPCS: 70551

== ENCOUNTER 2020-09-21 05:09 | Outpatient (CLI) | payer MEDICARE | END 2020-09-21 05:10 | disposition EMS.NT | LOC: EMS 05:09 | PROVIDERS: ATTEND Surgery | DX: R22.43 Localized swelling, mass and lump, lower limb, bilateral (principal); R82.998 Other abnormal findings in urine ==

== ENCOUNTER 2020-10-06 10:43 | Outpatient (CLI) | payer MEDICARE | END 2020-10-06 10:44 | disposition short-term general hospital (02) | LOC: EMS 10:43 | PROVIDERS: ATTEND Surgery | DX: S31.119A Laceration without foreign body of abdominal wall, unspecified quadrant without penetration into peritoneal cavity, initial encounter (principal); X78.1XXA Intentional self-harm by knife, initial encounter; Y92.009 Unspecified place in unspecified non-institutional (private) residence as the place of occurrence of the external cause | CPT/HCPCS: A0425; A0427 ==

== ENCOUNTER 2021-03-14 14:34 | Outpatient (CLI) | payer MEDICARE, OTHER ==
--- NOTE | 2021-03-14 15:32 | Ultrasound Report ---
PROCEDURE: Abdomen Limited INDICATIONS: ELEVATED LIVER ENZYMES TECHNIQUE: Real-time focused scanning was performed of the abdomen, with image documentation. COMPARISON: 09/11/2020 retroperitoneal ultrasound. FINDINGS: Liver measures 15.0 cm and is diffusely echogenic. Gallbladder is unremarkable. No wall th ickening. No pericholecystic fluid or sonographic Ibarra sign. Bile ducts are nondilated. The pancrea s is unremarkable. 5.3 x 5.1 cm distal abdominal aorta is incidentally noted measuring 10.7 cm in length. IMPRESSION: Coarsely echogenic liver suggesting hepatic steatosis/diffuse hepatocellular disease. Please correlat e with LFTs. Normal appearance of the gallbladder. Redemonstrated distal abdominal aortic aneurysm. Reviewed by: Ming Posadas MD on 03/14/2021 3:31 PM PDT Approved by: Ming Posadas MD on 03/14/2021 3:31 PM PDT Station ID: [id number]
== END 2021-03-14 14:35 | disposition home or self-care (01) ==
LOC: DI 14:34
PROVIDERS: ATTEND Nurse Practitioner Family
DX: R93.2 Abnormal findings on diagnostic imaging of liver and biliary tract (principal); I71.4 Abdominal aortic aneurysm, without rupture

== ENCOUNTER 2021-03-28 10:30 | Outpatient (CLI) | payer MEDICARE, OTHER ==
--- NOTE | 2021-03-28 16:04 | Ultrasound Report ---
PROCEDURE: Duplex Aorta Complete INDICATIONS: AAA TECHNIQUE: Grayscale and color Doppler vascular ultrasound was utilized to assess the aorta and its p roximal main tributaries. COMPARISON: Abdominal ultrasound and retroperitoneal ultrasound 03/14/2021 and 09/11/2020 reviewed.. FINDINGS: Proximal mid and distal aorta respectively measure up to 2.5 cm, 2.4 cm and 5.9 cm in maximal axial d imension respectively. The right and left iliac arteries measure up to 9 mm and 11 mm, respectively. At the proximal aorta and the peak systolic velocity is normal at 56 cm/s and at the middle third it is also normal at 42 cm/s. At the distal third in the area of aneurysm it measures 35 cm/s. Right common iliac artery proximally demonstrates 67 cm/s flow, monophasic and at the distal right CI A flow velocity is 85 cm/s, monophasic. The external iliac artery flow velocity ranges from 76 to 103 cm/s, monophasic, biphasic and triphasic depending on position. At the common femoral artery the melquiades w velocity is 101 cm/s, biphasic/triphasic. Left common iliac artery flow velocity is 1 31 cm/s, monophasic proximally and distally is 99 cm/s, w ith monophasic/biphasic flow. The external iliac artery proximally and distally respectively measure 99 cm/s/87 cm/s and the phasicity is monophasic/biphasic. At the common femoral artery the flow veloc ity is 66 cm/s, monophasic/biphasic. The abdominal aortic aneurysm at the distal aorta measures up to 4.8 x 5.9 cm in maximal axial dimens ion over 8.2 cm craniocaudad length. IMPRESSION: Large distal abdominal aortic aneurysm with maximal axial dimensions measuring up to 4.8 x 5.9 cm. No dissection through this area of aneurysmal dilatation. The aorta and iliac arteries elsewhere show no aneurysm or evidence of dissection. No area of high-gr loco aortic or tributary stenosis is found. Depending on the clinical status or additional bilateral lower extremity arterial assessment may be w arranted. Reviewed by: Karan Lawson MD on 03/28/2021 4:03 PM PDT Approved by: Karan Lawson MD on 03/28/2021 4:03 PM PDT Station ID: [id number]
== END 2021-03-28 10:31 | disposition home or self-care (01) ==
LOC: DI 10:30
PROVIDERS: ATTEND Nurse Practitioner Family
DX: I71.4 Abdominal aortic aneurysm, without rupture (principal)
CPT/HCPCS: 93978

== ENCOUNTER 2021-08-05 09:13 | Inpatient (IN) | payer MEDICARE, OTHER ==
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
[2021-08-05] MEDS ORDERED: MORPHINE 2 MG/ML CARPUJECT IVP STA ×2 (10:33→11:10)
[2021-08-05] MEDS ORDERED: KETOROLAC 15 MG/ML VIAL IVP STA (10:33)
[2021-08-05 11:15] LABS: BASOPHILS % (AUTO) 0.3 %; EOSINOPHILS % (AUTO) 1.8 %; HCT - HEMATOCRIT 29.9 % (37.0-47.0); HGB - HEMOGLOBIN 9.5 g/dL (12.0-16.0); LYMPHOCYTES % (AUTO) 7.4 %; MEAN CORPUSCULAR HEMOGLOBIN 28.8 pg (27.0-31.0); MEAN CORPUSCULAR HGB CONC 31.8 g/dL (32.0-36.0); MEAN CORPUSCULAR VOLUME 90.6 fL (81.0-99.0); MEAN PLATELET VOLUME 10.4 fL (7.9-10.8); MONOCYTES % (AUTO) 9.7 %; NEUTROPHILS % (AUTO) 80.4 %; PLT - PLATELET COUNT 287 10^3/uL (130-450); RED CELL DISTRIBUTION WIDTH 15.9 % (12.0-15.0); WHITE BLOOD COUNT 13.7 x10^3/uL (4.8-10.8)
[2021-08-05 11:20] LABS: ABNORMAL LYMPHS % (MANUAL) 0 %
[2021-08-05 11:28] LABS: ALBUMIN 4.1 g/dL (3.2-5.5); ALBUMIN/GLOBULIN RATIO 1.2 (1.0-2.2); BILIRUBIN,TOTAL 0.5 mg/dL (0.2-1.0); CALCIUM 9.1 mg/dL (8.5-10.3); CREATININE 2.3 mg/dL (0.4-1.0); POTASSIUM 4.5 mmol/L (3.5-5.0); TOTAL PROTEIN 7.4 g/dL (6.7-8.2)
--- NOTE | 2021-08-05 11:39 | XRAY Report ---
PROCEDURE: Femur 2V RT INDICATIONS: fall with right hip/thigh pain TECHNIQUE: AP and lateral views of the femur were acquired. COMPARISON: None. FINDINGS: Bones: Diffuse osteopenia. Mildly comminuted, displaced intertrochanteric fracture of the proximal ri ght femur. There is mild medial angulation and foreshortening of the distal fracture fragment. No carlos manuel picious bony lesions. Soft tissues: No suspicious soft tissue calcifications or masses. Vascular calcifications are prese nt. IMPRESSION: Diffuse osteopenia. Mildly comminuted, displaced intertrochanteric fracture of the proximal right fem ur. Reviewed by: Kevin Monaco MD on 08/05/2021 11:37 AM PST Approved by: Kevin Monaco MD on 08/05/2021 11:37 AM PST Station ID: [id number]
--- NOTE | 2021-08-05 11:41 | XRAY Report ---
PROCEDURE: Hip w/Pelvis 2-3V RT INDICATIONS: fall with hip/thigh pain TECHNIQUE: AP pelvis with lateral view(s) of the right hip(s). COMPARISON: None. FINDINGS: Bones: Diffuse osteopenia. Mildly comminuted, displaced intertrochanteric fracture of the proximal ri ght femur. There is medial angulation and foreshortening of the distal fracture fragments. Lesser tro chanter is mildly displaced. Femoral head contour remains smooth. Degenerative changes of the bilater al hips more pronounced on the left. Moderate multilevel spondylosis of the imaged spine. Pelvic ring appears intact. No suspicious bony lesions. Soft tissues: The visualized bowel gas pattern is normal. No suspicious soft tissue calcifications. IMPRESSION: Mildly comminuted, displaced intertrochanteric fracture of the proximal right femur. Diffuse osteopenia. Degenerative changes of the bilateral hip and visualized spine. Reviewed by: Kevin Monaco MD on 08/05/2021 11:40 AM PST Approved by: Kevin Monaco MD on 08/05/2021 11:40 AM PST Station ID: [id number]
--- NOTE | 2021-08-05 11:43 | XRAY Report ---
PROCEDURE: Chest 1 View X-Ray INDICATIONS: chest pain TECHNIQUE: One view of the chest was acquired. COMPARISON: 09/11/2020 FINDINGS: Surgical changes and devices: Surgical clips in the midline upper abdomen. Lungs and pleura: No pleural effusions or pneumothorax. Lungs are clear. Stable appearance of hype raeration and flattening of the hemidiaphragms. Mediastinum: Mediastinal contours appear normal. Heart size is normal. Atherosclerotic calcificati ons of the aortic arch. Bones and chest wall: No suspicious bony lesions. Overlying soft tissues appear unremarkable. Diff use osteopenia. IMPRESSION: Chest without acute cardiopulmonary abnormalities. No focal airspace disease. Stable findings sugg estive of chronic obstructive pulmonary physiology. Reviewed by: Kevin Monaco MD on 08/05/2021 11:42 AM [facility] Approved by: Kevin Monaco MD on 08/05/2021 11:42 AM [facility] Station ID: [id number]
[2021-08-05 11:46] LABS: BAND NEUTROPHILS % (MANUAL) 1 %; LYMPHOCYTES # (MANUAL) 1.2 10^3/uL (1.5-3.5); LYMPHOCYTES % (MANUAL) 9 %; MONOCYTES # (MANUAL) 1.5 10^3/uL (0.0-1.0); PLATELET ESTIMATE, MANUAL NORMAL (130-450,000) (NORMAL); PLATELET MORPHOLOGY NORMAL APPEARANCE (NORMAL); RBC MORPHOLOGY (MULTIPLE) NORMAL APPEARANCE (NORMAL); WBC MORPHOLOGY (MULTIPLE) NORMAL APPEARANCE (NORMAL)
[2021-08-05 11:47] LABS: DIFFERENTIAL COMMENT MANUAL DIFFERENTIAL
[2021-08-05 12:20] LABS: B. PARAPERTUSSIS- RESP PCR PAN NOT DETECTED; B. PERTUSSIS- RESP PCR PANEL NOT DETECTED; C. PNEUMONIAE- RESP PCR PANEL NOT DETECTED; CORONAVIRUS 229E-RESP PCR NOT DETECTED; CORONAVIRUS HKU1-RESP PCR NOT DETECTED; CORONAVIRUS NL63-RESP PCR NOT DETECTED; CORONAVIRUS OC43-RESP PCR NOT DETECTED; HUMAN METAPNEUMOVIRUS NOT DETECTED; INFLUENZA A- RESP PCR PANEL NOT DETECTED; INFLUENZA B - RESP PCR PANEL NOT DETECTED; PARAINFLUENZA VIRUS 1 NOT DETECTED; PARAINFLUENZA VIRUS 2 NOT DETECTED; PARAINFLUENZA VIRUS 3 NOT DETECTED; PARAINFLUENZA VIRUS 4 NOT DETECTED; RHINOVIRUS/ENTEROVIRUS NOT DETECTED; RSV- RESP PCR PANEL NOT DETECTED; SARS-CoV-2 -RESP PCR PANEL NOT DETECTED
[2021-08-05 12:21] LABS: M. PNEUMONIAE- RESP PCR PANEL NOT DETECTED
[2021-08-05] MEDS ORDERED: HYDROmorphone 1 MG/ML CARPUJECT IVP STA (12:32)
[2021-08-05] MEDS ORDERED: diazePAM INJ 5 MG/ML SYRINGE IVP STA (12:32)
[2021-08-05] MEDS ORDERED: SODIUM CHLORIDE FLUSH 0.9% 10 ML SYRINGE IVP PRN (13:59)
[2021-08-05] MEDS ORDERED: ONDANSETRON 4 MG/2 ML VIAL IVP PRN (13:59)
[2021-08-05] MEDS ORDERED: MORPHINE 2 MG/ML CARPUJECT IVP PRN (13:59)
--- NOTE | 2021-08-05 14:07 | HISTORY & PHYSICAL EXAMINATION ---
Chief Complaint - Chief Complaint Chief Complaint: fall, right hip pain History of Present Illness - Admitted From Admitted From:: medical floor - History Obtained From Records Reviewed: [facility], ER notes History obtained from: pt and [employer] Exam Limitations: no - History of Present Illness HPI Comment/Other: This is a 75-years old female with a past medical history significant noted for hypertension, hyperlipidemia, arrhythmia, CKD stage 4, AAA, Who presented to ER for evaluation of her fall. pt report when she was out in the garage to seek for their generator, she tripped on a bicycle and fell to the right side. She Denies other injury, denies injury to the trunk or head. pt denies hx of cardiac problem. Pt was found to have AAA nearly one year ago at this hospital. Pt was recommended to see thoracic surgeon at that time, but pt report she never saw any surgeon. she denies chest pain, shortness of breath. Xray of hip reveal mildly comminuted, displaced intertrochanteric fracture of the proximal right femur. Orthopedic surgeon was called by the ER provider For consulting for patient. Discussed the care goal with patient, patient hope full code History - Past Medical History Cardiovascular: reports: Hypertension, Arrhythmia Respiratory: reports: None Endocrine/Autoimmune: reports: None GI: reports: None : reports: None HEENT: reports: Chronic vision loss, Chronic sinusitis Psych: reports: None Musculoskeletal: reports: Osteoarthritis Derm: reports: None MRSA Hx?: No - Past Surgical History HEENT: reports: Cataracts - Family & Social History Family History: Mother: , Father: Family History Comment/Other: Denies any significant family history, She reported her mother at age 94 for heart attack, She was unknown of her father medical conditions. Social History Notes: Lives at home with her . She has history of 1 pack/day for about 20 years however she currently does not smoke. She denies alcohol or recreational substance use. - POLST Patient has POLST: No POLST Status: DNR Meds/Allgy - Home Medications Home Medications: Ambulatory Orders Medication Instructions Recorded Confirmed Atorvastatin Calcium 40 mg PO QPM 08/05/21 08/05/21 Diltiazem HCl [Diltiazem 12Hr ER] 120 mg PO QPM 08/05/21 08/05/21 Duloxetine HCl [Cymbalta] 60 mg PO DAILY 08/05/21 08/05/21 lisinopriL [Zestril] 5 mg PO DAILY 08/05/21 08/05/21 - Allergies Allergies/Adverse Reactions: Allergies Allergy/AdvReac Type Severity Reaction Status Date / Time pollen extracts Allergy Respiratory Verified 08/05/21 09:38 Review of Systems - Constitutional Constitutional: denies: Fever, Chills, Weakness - Eyes Eyes: denies: Pain - Ears, Nose & Throat Ears, Nose & Throat: denies: Ear pain - Cardiovascular Cariovascular: denies: Irregular heart rate, Palpitations, Chest pain, Syncope, Exertional dyspnea, Decr. exercise tolerance - Respiratory Respiratory: denies: Cough, Wheezing, SOB at rest, SOB with exertion - Gastrointestinal Gastrointestinal: denies: Abdominal pain, Nausea, Vomiting - Genitourinary Genitourinary: denies: Dysuria - Musculoskeletal Musculoskeletal: denies: Muscle pain - Neurological Neurological: denies: General weakness, Focal weakness, Headache, Dizziness, Numbness, Abnormal gait, Seizures, Incoordination, Slurred speech - Psychiatric Psychiatric: denies: Depression Exam - Vital Signs Vital Signs: Vital Signs x48h Temp Pulse Resp BP Pulse Ox 08/05/21 13:00 73 18 143/75 H 99 08/05/21 11:39 111 H 20 121/74 96 08/05/21 09:29 36.6 C 78 16 136/74 H 99 - Physical Exam General Appearance: positive: No acute distress, Alert. negative: Lethargic Eyes Bilateral: positive: Normal inspection, PERRL, No lid inflammation ENT: positive: ENT inspection nml, No signs of dehydration. negative: Purulent nasal drainage Neck: positive: Nml inspection, Trachea midline. negative: Thyromegaly, Trachea l deviation Respiratory: positive: Chest non-tender, No respiratory distress, Breath sounds nml. negative: Wheezes, Rales Cardiovascular: positive: Irregularly irregular. negative: Tachycardia, Bradycardia, Systolic murmur Peripheral Pulses: positive: 2+ Abdomen: positive: Non-tender, Nml bowel sounds, No distention. negative: Tenderness Back: positive: Nml inspection Skin: positive: Color nml, Warm, Dry. negative: Cyanosis Extremities: positive: Non-tender, Nml appearance. negative: Calf tenderness Neurologic/Psychiatric: positive: Oriented x3, Motor nml, Sensation nml, Mood/affect nml. negative: Weakness, Sensory loss, Facial droop, Slurred/abnml speech, Depressed mood/affect Conclusion/Plan - Problem List (1) Hip fracture Conclusion/Plan: Patient had a mechanical fall at right side, she denies any loss of consciousness. X-ray review right hip fracture. Surgeon was consulted, Plan to have surgery on tomorrow. Pain control, consult with surgeon, NPO After midnight. Qualifiers: Encounter type: initial encounter Fracture type: closed Laterality: right Qualified Code(s): S72.001A - Fracture of unspecified part of neck of right femur, initial encounter for closed fracture (2) Encounter for preoperative assessment for noncoronary cardiac surgery Conclusion/Plan: Patient denies any cardiac history. he denies chest pain and Loss of consciousness at this time. Patient had a echo done at 10/2019 Which show unremarkable. we will order EKG, pt has hx of Arrhythmia, and PT/INR. According to revised cardiac risk index (Yared criteria), Estimated risk of adverse outcome with noncardiac surgery is low risk, and 0.9% for Estimated rate of myocardial infarction, pulmonary edema, ventricular fibrillation, cardiac arrest or complete heart block. (3) CKD (chronic kidney disease) stage 4, GFR 15-29 ml/min Conclusion/Plan: Patient's creatinine is 2.3 on today, Patient has a history of CKD, we will order gently IVF for pt, lab monitor, avoid nephrotoxic agents. (4) AAA (abdominal aortic aneurysm) Conclusion/Plan: pt has hx of AAA. pt was unknown her hx of AAA. in 03/2021 US of he abdomen showed 4.8X5.9 cm size with 8.2cm length at the distal abdominal aorta. draw picture and explained to pt what that means about AAA, explained the risk of this non-cardiac surgery with this size of AAA. pt verbally state she understood, she insisted "whatever risk has, I want to have surgery." Discussed pt's this conditions with orthopedics surgeon as well. continue control of pt's BP and resume home statin. tele and vital monitor Qualifiers: Presence of rupture: without rupture Qualified Code(s): I71.4 - Abdominal aortic aneurysm, without rupture (5) HTN (hypertension) Conclusion/Plan: Stable, we will resume patient home lisinopril and Cardizem (6) HLD (hyperlipidemia) Conclusion/Plan: Resume home statin (7) Arrhythmia Conclusion/Plan: pt has hx of arrhythmia. pt denies chest pain or Palpitations. We will order EKG, Continue residential monitor. - Lab Results Fish Bones: 08/05/21 11:08 08/05/21 11:08 Core Measures - Anticipated LOS I expect patient to be DC'd or transferred within 96 hours.: Yes - DVT/VTE - Prophylaxis VTE/DVT Device ordered at admit?: Yes VTE/DVT Prophylaxis med ordered at admit?: Yes
[2021-08-05] MEDS: SODIUM CHLORIDE 0.9% 1,000 ML IV SCH (14:30)
[2021-08-05] MEDS: SODIUM CHLORIDE FLUSH 0.9% 10 ML SYRINGE IVP SCH (17:23)
--- NOTE | 2021-08-05 18:05 | HISTORY & PHYSICAL EXAMINATION ---
HPI - History Obtained From History obtained from: Patient Exam limitations: Clinical condition - History of Present Illness HPI Comment/Other: This is a relatively healthy 75-year-old woman. She went into her garage, looking to find their generator when she tripped over a bicycle tire and fell onto her right hip. She had immediate pain to the right hip area and was unable to bear any weight on the right leg. She was brought to the emergency room, evaluated and found to have a fracture of her right hip. She denies chest pain, shortness of breath, dizziness, syncope or loss of consciousness associated with the fall. She denies any previous problems with her right hip. She is a community ambulator, states that she goes to the grocery store and still drives her car. She does not do as much cooking as she used to do. She is , lives with her and has children in the area. She denies any other area of pain other than the right hip and is relatively comfortable at bedrest at the present time. PMH/PSH - Past Medical History Cardiovascular: positive: Hypertension, Arrhythmia Respiratory: positive: None Endocrine/Autoimmune: positive: None GI: positive: None : positive: None HEENT: positive: Chronic vision loss, Chronic sinusitis Psych: positive: None Musculoskeletal: positive: Osteoarthritis Derm: positive: None MRSA Hx?: No - Past Surgical History HEENT: positive: Cataracts Social & Family Hx - Social History Does the pt smoke?: No Smoking Status: Never smoker Does the pt drink ETOH?: No Does the pt have substance abuse?: No - POLST Patient has POLST: No POLST Status: DNR Meds/Allgy - Home Medications Home Medications: Ambulatory Orders Medication Instructions Recorded Confirmed Atorvastatin Calcium 40 mg PO QPM 08/05/21 08/05/21 Diltiazem HCl [Diltiazem 12Hr ER] 120 mg PO QPM 08/05/21 08/05/21 Duloxetine HCl [Cymbalta] 60 mg PO DAILY 08/05/21 08/05/21 lisinopriL [Zestril] 5 mg PO DAILY 08/05/21 08/05/21 - Allergies Allergies/Adverse Reactions: Allergies Allergy/AdvReac Type Severity Reaction Status Date / Time pollen extracts Allergy Respiratory Verified 08/05/21 09:38 Exam - Vital Signs Vital Signs: Vital Signs x48h Temp Pulse Pulse Resp BP BP Pulse Ox 08/05/21 16:00 36.3 C L 74 18 113/67 98 08/05/21 14:33 36.6 C 84 18 144/79 H 92 08/05/21 13:00 73 18 143/75 H 99 08/05/21 11:39 111 H 20 121/74 96 - Physical Exam General Appearance: positive: No acute distress Cardiovascular: positive: Regular rate & rhythm Peripheral Pulses: positive: 1+ Skin: positive: Color nml Extremities: negative: Other (Shortening, external rotation deformity right leg, marked pain with passive movement right hip) Neurologic/Psychiatric: positive: Oriented x3, Motor nml Comments/Other: Extremity exam other than right leg normal Results - Lab Results Fish Bones: 08/05/21 11:08 08/05/21 11:08 Other Lab Results: Lab Results x24hrs 08/05/21 08/05/21 08/05/21 Range/Units 16:25 11:14 11:08 WBC (4.8-10.8) x10^3/uL RBC (4.20-5.40) 10^6/uL Hgb (12.0-16.0) g/dL Hct (37.0-47.0) % MCV (81.0-99.0) fL MCH (27.0-31.0) pg MCHC (32.0-36.0) g/dL RDW (12.0-15.0) % Plt Count (130-450) 10^3/uL MPV (7.9-10.8) fL Neut # (Auto) Lymph # (Auto) [place] # (Auto) Eos # (Auto) Baso # (Auto) Absolute Nucleated RBC Total Counted Band Neuts % (Manual) (0 - 10) % Abnorm Lymph % (Manual) % Nucleated RBC % Neutrophils # (Manual) (1.5-6.6) 10^3/uL Lymphocytes # (Manual) (1.5-3.5) 10^3/uL Monocytes # (Manual) (0.0-1.0) 10^3/uL Eosinophils # (Manual) (0-0.7) 10^3/uL Basophils # (Manual) (0-0.1) 10^3/uL Differential Comment WBC Morphology (NORMAL) Platelet Estimate (NORMAL) Platelet Morphology (NORMAL) RBC Morph Micro Appear (NORMAL) INR (Fingerstick) 1.1 (0.8-1.2) Sodium 141 (135-145) mmol/L Potassium 4.5 (3.5-5.0) mmol/L Chloride 106 (101-111) mmol/L Carbon Dioxide 23 (21-32) mmol/L Anion Gap 12.0 (6-13) BUN 50 H (6-20) mg/dL Creatinine 2.3 H (0.4-1.0) mg/dL Estimated GFR (MDRD) 21 L (>89) Glucose 124 H (70-100) mg/dL Calcium 9.1 (8.5-10.3) mg/dL Total Bilirubin 0.5 (0.2-1.0) mg/dL AST 22 (10-42) IU/L ALT 17 (10-60) IU/L Alkaline Phosphatase 97 (42-121) IU/L Total Protein 7.4 (6.7-8.2) g/dL Albumin 4.1 (3.2-5.5) g/dL Globulin 3.3 (2.1-4.2) g/dL Albumin/Globulin Ratio 1.2 (1.0-2.2) Lipase 39 (22-51) U/L Nasal Adenovirus (PCR) NOT DETECTED Nasal B. parapertussis DNA (PCR) NOT DETECTED Nasal Coronavir 229E PCR NOT DETECTED Nasal Coronavir HKU1 PCR NOT DETECTED Nasal Coronavir NL63 PCR NOT DETECTED Nasal Coronavir OC43 PCR NOT DETECTED Nasal Enterovir/Rhinovir PCR NOT DETECTED Nasal Influenza B PCR NOT DETECTED Nasal Influenza A PCR NOT DETECTED Nasal Parainfluen 1 PCR NOT DETECTED Nasal Parainfluen 2 PCR NOT DETECTED Nasal Parainfluen 3 PCR NOT DETECTED Nasal Parainfluen 4 PCR NOT DETECTED Nasal RSV (PCR) NOT DETECTED Nasal B.pertussis DNA PCR NOT DETECTED Nasal C.pneumoniae (PCR) NOT DETECTED Russ Human Metapneumo PCR NOT DETECTED Nasal M.pneumoniae (PCR) NOT DETECTED Nasal SARS-CoV-2 (PCR) NOT DETECTED 08/05/21 Range/Units 11:08 WBC 13.7 H (4.8-10.8) x10^3/uL RBC 3.30 L (4.20-5.40) 10^6/uL Hgb 9.5 L (12.0-16.0) g/dL Hct 29.9 L (37.0-47.0) % MCV 90.6 (81.0-99.0) fL MCH 28.8 (27.0-31.0) pg MCHC 31.8 L (32.0-36.0) g/dL RDW 15.9 H (12.0-15.0) % Plt Count 287 (130-450) 10^3/uL MPV 10.4 (7.9-10.8) fL Neut # (Auto) Not Reportable Lymph # (Auto) Not Reportable [place] # (Auto) Not Reportable Eos # (Auto) Not Reportable Baso # (Auto) Not Reportable Absolute Nucleated RBC Not Reportable Total Counted 100 Band Neuts % (Manual) 1 (0 - 10) % Abnorm Lymph % (Manual) 0 % Nucleated RBC % Not Reportable Neutrophils # (Manual) 11.0 H (1.5-6.6) 10^3/uL Lymphocytes # (Manual) 1.2 L (1.5-3.5) 10^3/uL Monocytes # (Manual) 1.5 H (0.0-1.0) 10^3/uL Eosinophils # (Manual) 0.0 (0-0.7) 10^3/uL Basophils # (Manual) 0.0 (0-0.1) 10^3/uL Differential Comment MANUAL DIFFERENTIAL WBC Morphology NORMAL APPEARANCE (NORMAL) Platelet Estimate NORMAL (130-450,000) (NORMAL) Platelet Morphology NORMAL APPEARANCE (NORMAL) RBC Morph Micro Appear NORMAL APPEARANCE (NORMAL) INR (Fingerstick) (0.8-1.2) Sodium (135-145) mmol/L Potassium (3.5-5.0) mmol/L Chloride (101-111) mmol/L Carbon Dioxide (21-32) mmol/L Anion Gap (6-13) BUN (6-20) mg/dL Creatinine (0.4-1.0) mg/dL Estimated GFR (MDRD) (>89) Glucose (70-100) mg/dL Calcium (8.5-10.3) mg/dL Total Bilirubin (0.2-1.0) mg/dL AST (10-42) IU/L ALT (10-60) IU/L Alkaline Phosphatase (42-121) IU/L Total Protein (6.7-8.2) g/dL Albumin (3.2-5.5) g/dL Globulin (2.1-4.2) g/dL Albumin/Globulin Ratio (1.0-2.2) Lipase (22-51) U/L Nasal Adenovirus (PCR) Nasal B. parapertussis DNA (PCR) Nasal Coronavir 229E PCR Nasal Coronavir HKU1 PCR Nasal Coronavir NL63 PCR Nasal Coronavir OC43 PCR Nasal Enterovir/Rhinovir PCR Nasal Influenza B PCR Nasal Influenza A PCR Nasal Parainfluen 1 PCR Nasal Parainfluen 2 PCR Nasal Parainfluen 3 PCR Nasal Parainfluen 4 PCR Nasal RSV (PCR) Nasal B.pertussis DNA PCR Nasal C.pneumoniae (PCR) Russ Human Metapneumo PCR Nasal M.pneumoniae (PCR) Nasal SARS-CoV-2 (PCR) - Diagnostic Imaging Results Diagnostic Imaging Results: negative: Read independently (Unstable, displaced, comminuted intertrochanteric fracture right hip) Impression/Plan - Problem List Problem List: 1. Displaced, unstable comminuted intertrochanteric fracture right hip I discussed both nonoperative and operative treatment with her. There is potential morbidity and mortality with both forms of treatment but less with operative treatment. She would like to proceed with surgical treatment which wo uld consist of open reduction internal fixation of the intertrochanteric fracture right hip with a intramedullary navi and hip screw. She has been evaluated by our medical team and there are no specific contraindications but she does have a comorbidities with anemia and chronic kidney disease, aortic aneurysm. I discussed the risk, goals and likelihood of achieving goals, alternatives of surgery, disability and . I have explained the procedure to her, she seems to have understanding of the procedure.
[2021-08-05 18:38] LABS: ABSOLUTE RETICS # AUTO 0.042 10^6/uL (0.020-0.110); RED BLOOD COUNT 3.29 10^6/uL (4.20-5.40); RETICULOCYTE COUNT % (AUTO) 1.27 % (0.5-2.3)
[2021-08-05 19:01] LABS: % IRON SATURATION 7 % (20-50); IRON 23 ug/dL (28-170); TOTAL IRON BINDING CAPACITY 321 ug/dL (250-450); TRANSFERRIN 229 mg/dL (192-382)
[2021-08-05 19:09] LABS: FERRITIN 68.1 ng/mL (11.0-306.8)
[2021-08-05 20:00] LABS: BILIRUBIN,URINE NEGATIVE (NEGATIVE); GLUCOSE, URINE (UA) NEGATIVE (NEGATIVE); KETONES,URINE (UA) NEGATIVE (NEGATIVE); LEUKOCYTE ESTERASE, URINE NEGATIVE (NEGATIVE); NITRITE,URINE NEGATIVE (NEGATIVE); OCCULT BLOOD,URINE NEGATIVE (NEGATIVE); PROTEIN,URINE NEGATIVE (NEGATIVE); UROBILINOGEN,URINE 0.2 (NORMAL) E.U./dL (NORMAL)
[2021-08-05 20:01] LABS: CLARITY,URINE CLEAR (CLEAR)
[2021-08-05] MEDS: diltiaZEM CD 120 MG CAPSULE PO SCH (20:03)
[2021-08-05] MEDS: ATORVASTATIN 40 MG TABLET PO SCH (20:03)
[2021-08-05 20:12] LABS: BACTERIA,URINE None Seen /HPF (None Seen); RBC,URINE None Seen /HPF (0-5); SQUAMOUS EPITHELIAL CELL,UR FEW Squamous (<= Few); WBC,URINE 0-3 /HPF (0-5)
[2021-08-05] MEDS: ACETAMINOPHEN 325 MG TABLET PO PRN (21:25)
[2021-08-06] MEDS: oxyCODONE 5 MG TABLET PO PRN ×2 (00:40→22:10)
[2021-08-06] MEDS: SODIUM CHLORIDE FLUSH 0.9% 10 ML SYRINGE IVP SCH ×3 (01:39→18:06)
[2021-08-06] MEDS: SODIUM CHLORIDE 0.9% 1,000 ML IV SCH (04:24)
[2021-08-06 06:34] LABS: BASOPHILS # (AUTO) 0.1 10^3/uL (0.0-0.1); BASOPHILS % (AUTO) 0.7 %; EOSINOPHILS # (AUTO) 0.2 10^3/uL (0.0-0.7); EOSINOPHILS % (AUTO) 2.1 %; HCT - HEMATOCRIT 22.3 % (37.0-47.0); LYMPHOCYTES # (AUTO) 1.6 10^3/uL (1.5-3.5); LYMPHOCYTES % (AUTO) 18.2 %; MEAN CORPUSCULAR HGB CONC 31.4 g/dL (32.0-36.0); MEAN CORPUSCULAR VOLUME 92.5 fL (81.0-99.0); MEAN PLATELET VOLUME 10.2 fL (7.9-10.8); MONOCYTES # (AUTO) 1.4 10^3/uL (0.0-1.0); MONOCYTES % (AUTO) 15.4 %; NEUTROPHILS # (AUTO) 5.7 10^3/uL (1.5-6.6); NEUTROPHILS % (AUTO) 63.2 %; PLT - PLATELET COUNT 219 10^3/uL (130-450); RED BLOOD COUNT 2.41 10^6/uL (4.20-5.40); RED CELL DISTRIBUTION WIDTH 16.1 % (12.0-15.0)
[2021-08-06 06:47] LABS: CALCIUM 7.9 mg/dL (8.5-10.3); CREATININE 2.3 mg/dL (0.4-1.0); POTASSIUM 4.2 mmol/L (3.5-5.0)
[2021-08-06] MEDS ORDERED: CYANOCOBALAMIN 1,000 MCG/ML VIAL IM ONE (07:38)
--- NOTE | 2021-08-06 08:08 | XRAY Report ---
PROCEDURE: Chest 1 View X-Ray INDICATIONS: sob TECHNIQUE: One view of the chest was acquired. COMPARISON: CXR 08/05/2021, 09/11/2020. FINDINGS: Surgical changes and devices: None. Lungs and pleura: No pleural effusions or pneumothorax. Lungs appear clear. Prominent lung volumes. Mediastinum: Mediastinal contours appear unchanged. Aortic arch calcifications. Heart size is nichol l. Bones and chest wall: No suspicious bony lesions. Overlying soft tissues appear unremarkable. IMPRESSION: No acute cardiopulmonary abnormality. Suspect emphysematous change. Reviewed by: Tomás Coppola MD on 08/06/2021 8:07 AM [facility] Approved by: Tomás Coppola MD on 08/06/2021 8:07 AM [facility] Station ID: [id number]
[2021-08-06] MEDS ORDERED: LEVALBUTEROL 1.25 MG/3 ML NEB INH PRN (08:28)
[2021-08-06] MEDS ORDERED: IPRATROPIUM/ALBUTEROL 3 ML NEB INH PRN (08:29)
[2021-08-06] MEDS: FERROUS GLUCONATE 324 MG TABLET PO SCH (08:51)
[2021-08-06] MEDS: PANTOPRAZOLE 40 MG VIAL IVP SCH (08:51)
[2021-08-06] MEDS: DULoxetine 30 MG CAPSULE PO SCH (08:51)
[2021-08-06] MEDS ORDERED: HEPARIN 5,000 UNIT/ML VIAL SUBQ SCH ×2 (09:00→21:00)
[2021-08-06] MEDS ORDERED: lisinopriL 5 MG TABLET PO SCH (09:00)
--- NOTE | 2021-08-06 09:24 | CT Report ---
PROCEDURE: Abdomen/Pelvis WO INDICATIONS: HGB drop,if hematoma at R hip fracture, pt has AAA TECHNIQUE: Noncontrast 5 mm thick sections acquired from the diaphragms to the symphysis. 5 mm coronal and sagi ttal reformats were then performed. For radiation dose reduction, the following was used: automated exposure control, adjustment of mA and/or kV according to patient size. COMPARISON: Hip radiograph dated 08/05/2021. FINDINGS: Image quality: Excellent. ABDOMEN: Lung bases: Lung bases are clear. Heart size is normal. Atherosclerotic calcifications in coronary vessels are seen. Solid organs: Liver and spleen are normal in size. Gallbladder is within normal limits Pancreas is normal in contours. No adrenal nodules. Kidneys are normal in size, without hydronephrosis. Vascul ar calcifications versus tiny nonobstructing stones are seen in midpole of left kidney. No perinephri c fat stranding. Peritoneum and bowel: Unenhanced bowel loops demonstrate normal wall thickness and caliber. No free fluid or air. No evidence of peritoneal or retroperitoneal hematoma. Nodes and vessels: No retroperitoneal or mesenteric adenopathy by size criteria. IVC is normal in si ze. Extensive atherosclerotic calcifications throughout abdominal aorta and its major branches are no rivas. There is fusiform infrarenal abdominal aortic aneurysm involving distal 7.7 cm segment of infrar enal abdominal aorta and measures up to 5.2 x 4.7 cm in largest transverse and AP diameter series 8 i mage 42. No periaortic fluid or area of abnormal hyperdensity is seen to suggest rupture. Miscellaneous: No ventral hernias. PELVIS: Genitourinary: Bladder wall thickness is normal. Miscellaneous: No inguinal hernias or adenopathy. Bones: Comminuted intertrochanteric fracture of right proximal femur is seen with posterior and media lly displaced lesser trochanteric fragment and laterally displaced greater trochanteric fragment. The re is significant soft tissue swelling and edema surrounding fracture site with asymmetrically enlarg ed right adductor josh muscle concerning for intramuscular hematoma. No discrete drainable fluid co llection is identified. S-shaped scoliosis of lower thoracic and lumbar spine is seen with degenerati ve disc disease throughout spine. No gross acute compression fracture is seen. Chronic appearing ante rior wedge compression deformity at T11 and T12 levels are seen. IMPRESSION: 1. Comminuted right proximal femoral intertrochanteric fracture with displaced greater and lesser tro chanteric fragments and surrounding soft tissue swelling and edema. Asymmetrically enlarged right abd uctor josh muscle concerning for intramuscular hematoma. 2. No peritoneal or retroperitoneal hematoma is seen. Extensive atherosclerotic disease throughout ab dominal aorta with fusiform infrarenal abdominal aortic aneurysm involving distal 7.7 cm segment of a bdominal aorta measures up to 5.2 x 4.7 cm in largest transverse and AP diameters. No signs of ruptur e is seen. No periaortic fluid. 3. No bowel obstruction or abnormal bowel wall thickening. No solid organ injury within abdomen or pe lvis. No free fluid of free air. Reviewed by: Zach Horan MD on 08/06/2021 9:22 AM PST Approved by: Zach Horan MD on 08/06/2021 9:22 AM PST Station ID: [id number]
--- NOTE | 2021-08-06 09:27 | CONSULTATION NOTE ---
Referring Provider Name of Referring Provider:: Plasencia Chief Complaint - Chief Complaint Chief Complaint: Concern for GI bleed History of Present Illness - History of Present Illness HPI Comment/Other: Patient is a 75 yo F with hx anemia, CKD, HTN, AAA, and recently admitted for R hip fxr who experienced an acute drop in her Hgb overnight and c/o darker than usual BM yesterday am prompting surgical consultation. BP has trended lower today (90s systolic) but HR normal and do not see beta jessie on chart. Reports had a dark brown BM yesterday am, however not black/tarry, no clot, no bright blood. No history of prior dark BMs. Denies BMs since yesterday am. Denies any assx symptoms including abdominal pain, nausea, vomiting, hematemesis, light headedness. Has never had upper or lower endoscopy. Not on any blood thinners. Overall feeling ok aside from hip pain and ready for surgery with orthopedics. Of note, her hgb (9.5 -> 7.0), plts (287->219), wbc (13.7-> 9) all dropped by a similar amount raising c/f dilution/lab error. History - Past Medical History Cardiovascular: reports: Hypertension, Arrhythmia Respiratory: reports: None Endocrine/Autoimmune: reports: None GI: reports: None : reports: None HEENT: reports: Chronic vision loss, Chronic sinusitis Psych: reports: None Musculoskeletal: reports: Osteoarthritis Derm: reports: None MRSA Hx?: No - Past Surgical History HEENT: reports: Cataracts - Family & Social History Family History: Mother: , Father: Family History Comment/Other: Denies any significant family history, She reported her mother at age 94 for heart attack, She was unknown of her father medical conditions. Social History Notes: Lives at home with her . She has history of 1 pack/day for about 20 years however she currently does not smoke. She denies alcohol or recreational substance use. - POLST Patient has POLST: No POLST Status: DNR Meds/Allgy - Home Medications Home Medications: Ambulatory Orders Medication Instructions Recorded Confirmed Atorvastatin Calcium 40 mg PO QPM 08/05/21 08/05/21 Diltiazem HCl [Diltiazem 12Hr ER] 120 mg PO QPM 08/05/21 08/05/21 Duloxetine HCl [Cymbalta] 60 mg PO DAILY 08/05/21 08/05/21 lisinopriL [Zestril] 5 mg PO DAILY 08/05/21 08/05/21 - Allergies Allergies/Adverse Reactions: Allergies Allergy/AdvReac Type Severity Reaction Status Date / Time pollen extracts Allergy Respiratory Verified 08/05/21 09:38 Review of Systems - Gastrointestinal Gastrointestinal: denies: Abdominal pain, Diarrhea, Rectal bleeding, Black stools, Bloody stools, Nausea, Vomiting, Javier blood emesis, Coffee grounds emesis - Musculoskeletal Musculoskeletal: reports: Other (pain R hip/thigh) Exam - Vital Signs Reviewed Vital Signs: Yes Vital Signs: Vital Signs x48h Temp Pulse Resp BP Pulse Ox 08/06/21 08:00 36.7 C 76 17 98/58 L 95 08/06/21 07:50 36.7 C 71 18 89/52 L 95 08/06/21 06:50 85 87/47 L 08/06/21 05:00 16 95 08/06/21 04:24 36.9 C 64 16 92/55 L 95 - Physical Exam General Appearance: positive: No acute distress, Alert Eyes Bilateral: positive: EOMI ENT: positive: Other (normocephalic, atraumatic) Respiratory: positive: No respiratory distress Cardiovascular: positive: Regular rate & rhythm Abdomen: positive: Non-tender, No organomegaly, No distention, Other (upper abdominal vertical midline incision well-healed). negative: Tenderness (entirely non-tender without rebound or guarding), Guarding, Rebound Rectal: positive: Non-tender, Other (normal light brown stool on glove). negative: Hemorrhoid Skin: positive: Color nml, Warm, Dry. negative: Pallor Extremities: positive: Other (some tenderness and relative R hip fullness compared to left) Neurologic/Psychiatric: positive: Oriented x3, Mood/affect nml Conclusion/Plan - Lab Results Fish Bones: 08/06/21 06:18 08/06/21 06:18 - Other Other Results/Comments: Patient is a 75 yo F with hx anemia, CKD, HTN, AAA, and recently admitted for R hip fxr who experienced an acute drop in her Hgb overnight and c/o darker than usual BM yesterday am prompting surgical consultation. BP trending lower but normal HR and not on beta jessie. Overall well-appearing, good color, normal stool on rectal exam. History not totally convincing for GI bleed with only one dark brown BM but no further BMs, no melena, stable HR. CBC appears possibly dilutional. Another source could be from hip fracture as well. - recommend re-check CBC - agree with continue PPI for now - primary to discuss with ortho possible hip source; may consider imaging if concern - will consider NG lavage, possible endoscopy if bleeds further (should get screening c-scope on elective basis) Thank you for this consult. Please do not hesitate to call with questions. Elijah Aguirre MD General Surgeon operator electronic warfare
[2021-08-06 10:26] LABS: BASOPHILS # (AUTO) 0.1 10^3/uL (0.0-0.1); BASOPHILS % (AUTO) 0.5 %; EOSINOPHILS # (AUTO) 0.2 10^3/uL (0.0-0.7); EOSINOPHILS % (AUTO) 1.6 %; HCT - HEMATOCRIT 23.9 % (37.0-47.0); HGB - HEMOGLOBIN 7.4 g/dL (12.0-16.0); LYMPHOCYTES # (AUTO) 1.5 10^3/uL (1.5-3.5); LYMPHOCYTES % (AUTO) 16.1 %; MEAN CORPUSCULAR HEMOGLOBIN 28.8 pg (27.0-31.0); MEAN PLATELET VOLUME 10.5 fL (7.9-10.8); MONOCYTES # (AUTO) 1.2 10^3/uL (0.0-1.0); MONOCYTES % (AUTO) 13.1 %; NEUTROPHILS # (AUTO) 6.4 10^3/uL (1.5-6.6); NEUTROPHILS % (AUTO) 68.4 %; PLT - PLATELET COUNT 238 10^3/uL (130-450); RED BLOOD COUNT 2.57 10^6/uL (4.20-5.40); WHITE BLOOD COUNT 9.3 x10^3/uL (4.8-10.8)
[2021-08-06] MEDS ORDERED: SODIUM CHLORIDE 0.9% 1,000 ML IV SCH (11:00)
--- NOTE | 2021-08-06 11:46 | PHARMACY PROGRESS NOTE ---
- Best Possible Medication History Admit Date and Time: 08/05/21 1359 Processed by: Pharmacy Medication History completed: Yes Patient Interview: Completed Secondary Source(s): Pharmacy records, Insurance records As the person ultimately responsible for medication therapy, providers are able to order a medication from an existing home medication list in [facility] via the "Reconcile Routine" prior to Confirmation of that medication by child support officer. Such practice is discouraged except when the physician, in their clinical judgment, deems that a medical need exists for a medication without regard to previous use.
--- NOTE | 2021-08-06 15:10 | PROVIDER PROGRESS NOTE ---
Subjective - General Admit Date: 08/05/21 - Other Other Information/Narrative: Patient remains unchanged. As long as she is not moving, remains at bedrest pain to her right hip is relatively controlled. She denies chest pain, shortness of breath, nausea or vomiting. Objective - Patient Data Vital Signs: Vital Signs x48h Temp Pulse Resp BP Pulse Ox 08/06/21 13:00 36.7 C 81 24 113/48 L 93 08/06/21 08:00 36.7 C 76 17 98/58 L 95 08/06/21 07:50 36.7 C 71 18 89/52 L 95 Weight: Weight 08/04/21 08/05/21 08/06/21 23:59 23:59 23:59 Weight (kg) 58 kg Intake & Output: Intake and Output Totals x24h 08/04/21 08/05/21 08/06/21 23:59 23:59 23:59 Intake Total 240 1910 Output Total 40 300 Balance 200 1610 - Lab Results Lab Results: 08/06/21 09:32 08/06/21 06:18 Other Lab Results: Lab Results x24hrs 08/06/21 08/06/21 08/06/21 Range/Units 09:32 09:32 08:00 WBC 9.3 (4.8-10.8) x10^3/uL RBC 2.57 L (4.20-5.40) 10^6/uL Hgb 7.4 L (12.0-16.0) g/dL Hct 23.9 L (37.0-47.0) % MCV 93.0 (81.0-99.0) fL MCH 28.8 (27.0-31.0) pg MCHC 31.0 L (32.0-36.0) g/dL RDW 16.0 H (12.0-15.0) % Plt Count 238 (130-450) 10^3/uL MPV 10.5 (7.9-10.8) fL Reticulocyte % (Auto) (0.5-2.3) % Neut # (Auto) 6.4 (1.5-6.6) 10^3/uL Lymph # (Auto) 1.5 (1.5-3.5) 10^3/uL [place] # (Auto) 1.2 H (0.0-1.0) 10^3/uL Eos # (Auto) 0.2 (0.0-0.7) 10^3/uL Baso # (Auto) 0.1 (0.0-0.1) 10^3/uL Absolute Nucleated RBC 0.00 x10^3/uL Nucleated RBC % 0.0 /100WBC Absolute Retic (0.020-0.110) 10^6/uL INR (Fingerstick) (0.8-1.2) Sodium (135-145) mmol/L Potassium (3.5-5.0) mmol/L Chloride (101-111) mmol/L Carbon Dioxide (21-32) mmol/L Anion Gap (6-13) BUN (6-20) mg/dL Creatinine (0.4-1.0) mg/dL Estimated GFR (MDRD) (>89) Glucose (70-100) mg/dL Calcium (8.5-10.3) mg/dL Iron (28-170) ug/dL TIBC (250-450) ug/dL % Saturation (20-50) % Transferrin (192-382) mg/dL Ferritin (11.0-306.8) ng/mL Lactate Dehydrogenase (91-225) IU/L Vitamin B12 (180-914) pg/mL Urine Color Urine Clarity (CLEAR) Urine pH (5.0-7.5) PH Ur Specific [place] (1.002-1.030) Urine Protein (NEGATIVE) mg/dL Urine Glucose (UA) (NEGATIVE) mg/dL Urine Ketones (NEGATIVE) mg/dL Urine Occult Blood (NEGATIVE) Urine Nitrite (NEGATIVE) Urine Bilirubin (NEGATIVE) Urine Urobilinogen (NORMAL) E.U./dL Ur Leukocyte Esterase (NEGATIVE) Urine RBC (0-5) /HPF Urine WBC (0-5) /HPF Ur Squamous Epith Cells (<= Few) Urine Bacteria (None Seen) /HPF Urine Culture Comments Blood Type A NEGATIVE Blood Type Recheck A NEGATIVE Antibody Screen NEGATIVE Crossmatch IS Only See Detail 08/06/21 08/06/21 08/05/21 Range/Units 06:18 06:18 19:45 WBC 9.0 (4.8-10.8) x10^3/uL RBC 2.41 L (4.20-5.40) 10^6/uL Hgb 7.0 L* (12.0-16.0) g/dL Hct 22.3 L (37.0-47.0) % MCV 92.5 (81.0-99.0) fL MCH 29.0 (27.0-31.0) pg MCHC 31.4 L (32.0-36.0) g/dL RDW 16.1 H (12.0-15.0) % Plt Count 219 (130-450) 10^3/uL MPV 10.2 (7.9-10.8) fL Reticulocyte % (Auto) (0.5-2.3) % Neut # (Auto) 5.7 (1.5-6.6) 10^3/uL Lymph # (Auto) 1.6 (1.5-3.5) 10^3/uL [place] # (Auto) 1.4 H (0.0-1.0) 10^3/uL Eos # (Auto) 0.2 (0.0-0.7) 10^3/uL Baso # (Auto) 0.1 (0.0-0.1) 10^3/uL Absolute Nucleated RBC 0.00 x10^3/uL Nucleated RBC % 0.0 /100WBC Absolute Retic (0.020-0.110) 10^6/uL INR (Fingerstick) (0.8-1.2) Sodium 139 (135-145) mmol/L Potassium 4.2 (3.5-5.0) mmol/L Chloride 108 (101-111) mmol/L Carbon Dioxide 23 (21-32) mmol/L Anion Gap 8.0 (6-13) BUN 55 H (6-20) mg/dL Creatinine 2.3 H (0.4-1.0) mg/dL Estimated GFR (MDRD) 21 L (>89) Glucose 98 (70-100) mg/dL Calcium 7.9 L (8.5-10.3) mg/dL Iron (28-170) ug/dL TIBC (250-450) ug/dL % Saturation (20-50) % Transferrin (192-382) mg/dL Ferritin (11.0-306.8) ng/mL Lactate Dehydrogenase (91-225) IU/L Vitamin B12 (180-914) pg/mL Urine Color YELLOW Urine Clarity CLEAR (CLEAR) Urine pH 5.0 (5.0-7.5) PH Ur Specific [place] >=1.030 H (1.002-1.030) Urine Protein NEGATIVE (NEGATIVE) mg/dL Urine Glucose (UA) NEGATIVE (NEGATIVE) mg/dL Urine Ketones NEGATIVE (NEGATIVE) mg/dL Urine Occult Blood NEGATIVE (NEGATIVE) Urine Nitrite NEGATIVE (NEGATIVE) Urine Bilirubin NEGATIVE (NEGATIVE) Urine Urobilinogen 0.2 (NORMAL) (NORMAL) E.U./dL Ur Leukocyte Esterase NEGATIVE (NEGATIVE) Urine RBC None Seen (0-5) /HPF Urine WBC 0-3 (0-5) /HPF Ur Squamous Epith Cells FEW Squamous (<= Few) Urine Bacteria None Seen (None Seen) /HPF Urine Culture Comments NOT INDICATED Blood Type Blood Type Recheck Antibody Screen Crossmatch IS Only 08/05/21 08/05/21 08/05/21 Range/Units 18:38 16:25 11:08 WBC (4.8-10.8) x10^3/uL RBC (4.20-5.40) 10^6/uL Hgb (12.0-16.0) g/dL Hct (37.0-47.0) % MCV (81.0-99.0) fL MCH (27.0-31.0) pg MCHC (32.0-36.0) g/dL RDW (12.0-15.0) % Plt Count (130-450) 10^3/uL MPV (7.9-10.8) fL Reticulocyte % (Auto) (0.5-2.3) % Neut # (Auto) (1.5-6.6) 10^3/uL Lymph # (Auto) (1.5-3.5) 10^3/uL [place] # (Auto) (0.0-1.0) 10^3/uL Eos # (Auto) (0.0-0.7) 10^3/uL Baso # (Auto) (0.0-0.1) 10^3/uL Absolute Nucleated RBC x10^3/uL Nucleated RBC % /100WBC Absolute Retic (0.020-0.110) 10^6/uL INR (Fingerstick) 1.1 (0.8-1.2) Sodium (135-145) mmol/L Potassium (3.5-5.0) mmol/L Chloride (101-111) mmol/L Carbon Dioxide (21-32) mmol/L Anion Gap (6-13) BUN (6-20) mg/dL Creatinine (0.4-1.0) mg/dL Estimated GFR (MDRD) (>89) Glucose (70-100) mg/dL Calcium (8.5-10.3) mg/dL Iron (28-170) ug/dL TIBC (250-450) ug/dL % Saturation (20-50) % Transferrin (192-382) mg/dL Ferritin 68.1 (11.0-306.8) ng/mL Lactate Dehydrogenase 145 (91-225) IU/L Vitamin B12 182 (180-914) pg/mL Urine Color Urine Clarity (CLEAR) Urine pH (5.0-7.5) PH Ur Specific [place] (1.002-1.030) Urine Protein (NEGATIVE) mg/dL Urine Glucose (UA) (NEGATIVE) mg/dL Urine Ketones (NEGATIVE) mg/dL Urine Occult Blood (NEGATIVE) Urine Nitrite (NEGATIVE) Urine Bilirubin (NEGATIVE) Urine Urobilinogen (NORMAL) E.U./dL Ur Leukocyte Esterase (NEGATIVE) Urine RBC (0-5) /HPF Urine WBC (0-5) /HPF Ur Squamous Epith Cells (<= Few) Urine Bacteria (None Seen) /HPF Urine Culture Comments Blood Type Blood Type Recheck Antibody Screen Crossmatch IS Only 08/05/21 08/05/21 Range/Units 11:08 11:08 WBC (4.8-10.8) x10^3/uL RBC 3.29 L (4.20-5.40) 10^6/uL Hgb (12.0-16.0) g/dL Hct (37.0-47.0) % MCV (81.0-99.0) fL MCH (27.0-31.0) pg MCHC (32.0-36.0) g/dL RDW (12.0-15.0) % Plt Count (130-450) 10^3/uL MPV (7.9-10.8) fL Reticulocyte % (Auto) 1.27 (0.5-2.3) % Neut # (Auto) (1.5-6.6) 10^3/uL Lymph # (Auto) (1.5-3.5) 10^3/uL [place] # (Auto) (0.0-1.0) 10^3/uL Eos # (Auto) (0.0-0.7) 10^3/uL Baso # (Auto) (0.0-0.1) 10^3/uL Absolute Nucleated RBC x10^3/uL Nucleated RBC % /100WBC Absolute Retic 0.042 (0.020-0.110) 10^6/uL INR (Fingerstick) (0.8-1.2) Sodium (135-145) mmol/L Potassium (3.5-5.0) mmol/L Chloride (101-111) mmol/L Carbon Dioxide (21-32) mmol/L Anion Gap (6-13) BUN (6-20) mg/dL Creatinine (0.4-1.0) mg/dL Estimated GFR (MDRD) (>89) Glucose (70-100) mg/dL Calcium (8.5-10.3) mg/dL Iron 23 L (28-170) ug/dL TIBC 321 (250-450) ug/dL % Saturation 7 L (20-50) % Transferrin 229 (192-382) mg/dL Ferritin (11.0-306.8) ng/mL Lactate Dehydrogenase (91-225) IU/L Vitamin B12 (180-914) pg/mL Urine Color Urine Clarity (CLEAR) Urine pH (5.0-7.5) PH Ur Specific [place] (1.002-1.030) Urine Protein (NEGATIVE) mg/dL Urine Glucose (UA) (NEGATIVE) mg/dL Urine Ketones (NEGATIVE) mg/dL Urine Occult Blood (NEGATIVE) Urine Nitrite (NEGATIVE) Urine Bilirubin (NEGATIVE) Urine Urobilinogen (NORMAL) E.U./dL Ur Leukocyte Esterase (NEGATIVE) Urine RBC (0-5) /HPF Urine WBC (0-5) /HPF Ur Squamous Epith Cells (<= Few) Urine Bacteria (None Seen) /HPF Urine Culture Comments Blood Type Blood Type Recheck Antibody Screen Crossmatch IS Only - Current Medications Current Medications: Current Medications Generic Name Dose Route Start Last Admin Trade Name Freq PRN Reason Stop Dose Admin Acetaminophen 650 mg 08/05/21 13:59 08/05/21 21:25 Acetaminophen 325 Mg Tablet PO 650 mg Q4HR PRN Administration Pain 1 to 4 Atorvastatin Calcium 40 mg 08/05/21 21:00 08/05/21 20:03 Atorvastatin 40 Mg Tablet PO 40 mg QPM JANNETH Administration Diltiazem HCl 120 mg 08/05/21 21:00 08/05/21 20:03 Diltiazem Cd 120 Mg Capsule PO 120 mg QPM JANNETH Administration Duloxetine HCl 60 mg 08/06/21 09:00 08/06/21 08:51 Duloxetine 30 Mg Capsule PO 60 mg DAILY JANNETH Administration Ferrous Gluconate 324 mg 08/06/21 08:00 08/06/21 08:51 Ferrous Gluconate 324 Mg Tablet PO 324 mg DAILYWM JANNETH Administration Oxycodone HCl 5 mg 08/05/21 13:59 08/06/21 00:40 Oxycodone 5 Mg Tablet PO 5 mg Q4HR PRN Administration Pain 5 to 7 Pantoprazole Sodium 40 mg 08/06/21 08:00 08/06/21 08:51 Pantoprazole 40 Mg Vial IVP 40 mg QDAC JANNETH Administration Sodium Chloride 10 ml 08/05/21 17:00 08/06/21 08:51 Sodium Chloride Flush 0.9% 10 Ml Syringe IVP 10 ml 0100,[id number],1700 JANNETH Administration - Physical Exam Comments/Other: There is mild swelling to right thigh, mostly upper thigh; no sign of an expanding hematoma. Her neurovascular is intact to right leg. Any movement of right leg causes her to experience pain Impression/Plan - Problem List Problem List: I have had a long discussion with the hospitalist and our instrument person. Patient does have an anemia of 7.4, discussion for transfusion with plan to give at least 1 unit of blood. Her vital signs are stable. She has had general surgical consultation; no definite evidence of gastrointestinal blood loss. She did have a procedure to evaluate her abdominal aneurysm and apparently had stable. There is fracture hematoma which certainly will precipitate anemia from blood loss associated with the fracture. With fluid administration, as expected, drop in hemoglobin has occurred. Anesthesia was concerned about the aneurysm, now they feel comfortable that testing does not show any hematoma or urgency with regard to the aneurysm of the aorta. The hospitalist are in complete agreement that surgical treatment for this hip fracture is relatively safe, no absolute contraindication to surgery. The aneurysm needs to be evaluated on an elective or outpatient basis as there is no indication that the aneurysm of the aorta needs treatment at this time. The surgery to be performed is minimally invasive navi and hip screw which should be associated with very little blood loss. Most all the blood loss is associated with fracture hematoma. On I came out of my for surgery this morning, I was told that the patient with a hip fracture was going to be transferred. Both anesthesia and the hospitalist state that neither of them felt that this was necessary; at any rate, an attempt to transfer the patient was made and [facility], [facility] and [facility] would not accept the patient. The patient was going to have surgery today but now it is being canceled because the patient was given food. Therefore, the surgery will be performed tomorrow. I discussed this with the patient and she remains in agreement and gave her my apologies.A team meeting was performed with anesthesia, hospitalist, Nursing survey workers supervisor,Dr. Grewal and myself.
--- NOTE | 2021-08-06 15:17 | CONSULTATION NOTE ---
Consultation Report: 0812 discussed pt's medical hx with Hospitalist team, requested follow-up imaging to re-evaluate pt's AAA for any changes as pt never followed up with vascular surgeon as per recommendations in March 2021 upon initial diagnosis[address] results, no change in AAA, and pre-existing thrombus resolved.
[2021-08-06 15:35] LABS: BASOPHILS # (AUTO) 0.1 10^3/uL (0.0-0.1); BASOPHILS % (AUTO) 0.7 %; EOSINOPHILS # (AUTO) 0.1 10^3/uL (0.0-0.7); EOSINOPHILS % (AUTO) 1.3 %; HCT - HEMATOCRIT 25.7 % (37.0-47.0); HGB - HEMOGLOBIN 7.9 g/dL (12.0-16.0); LYMPHOCYTES # (AUTO) 1.6 10^3/uL (1.5-3.5); LYMPHOCYTES % (AUTO) 15.1 %; MEAN CORPUSCULAR HEMOGLOBIN 28.4 pg (27.0-31.0); MEAN CORPUSCULAR HGB CONC 30.7 g/dL (32.0-36.0); MEAN CORPUSCULAR VOLUME 92.4 fL (81.0-99.0); MEAN PLATELET VOLUME 10.1 fL (7.9-10.8); MONOCYTES # (AUTO) 1.3 10^3/uL (0.0-1.0); MONOCYTES % (AUTO) 11.8 %; NEUTROPHILS # (AUTO) 7.6 10^3/uL (1.5-6.6); NEUTROPHILS % (AUTO) 70.6 %; PLT - PLATELET COUNT 241 10^3/uL (130-450); RED BLOOD COUNT 2.78 10^6/uL (4.20-5.40); WHITE BLOOD COUNT 10.8 x10^3/uL (4.8-10.8)
--- NOTE | 2021-08-06 15:46 | PROVIDER PROGRESS NOTE ---
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 I did call [facility], no response call back. I called [place], finally orthopedics in [place] can not take any more pt. CT of abdomen/pelvis show AAA is stable. Pt is alert and oriented, she is clearly and verbally state she understood all risks, and she want to continue to have her right hip repair at our hospital. After discussed with all team, we all agreed to have surgery for pt on tomorrow. NPO on midnight, plan to have surgery on tomorrow morning. Patient had a mechanical fall at right side, she denies any loss of consciousness. X-ray review right hip fracture. Surgeon was consulted, Plan to have surgery on tomorrow. Pain control, consult with surgeon, NPO After midnight. (2) Encounter for preoperative assessment for noncoronary cardiac surgery Conclusion/Plan: 08/06 pt had EKG, which show SR. EHCO show normal EF, no evidence for aortic stenosis, moderate elevated abnormal right heart pressure, RVSP 64mmHG. Patient denies any cardiac history. he denies chest pain and Loss of consciousness at this time. Patient had a echo done at 10/2019 Which show unremarkable. we will order EKG, pt has hx of Arrhythmia, and PT/INR. According to revised cardiac risk index (Yared criteria), Estimated risk of adverse outcome with noncardiac surgery is low risk, and 0.9% for Estimated rate of myocardial infarction, pulmonary edema, ventricular fibrillation, cardiac arrest or complete heart block. (3)anemia 08/06 Patient's HGB drop to 7 from 9.5 on yesterday. 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 Consult with GI surgeon. pt's occult stool test is negative. Start with Protonix per GI surgeon suggestion. It is likely caused by hemodilution and patient developed hematoma. Repeat CBC show patient had hemoglobin 7.9. Per Orthopedic surgeon's suggestion, we will transfusion 1 units of blood for patient. Continue H&H (4)hematoma 08/06 CT of abdomen and pelvis concern pt developed intramuscular hematoma at right abductor josh muscle from right hip injury, pt also develop lower BP at the time. After pt had IVF, her BP return to normal arrange. pt has no acute distress. We will continue CBC monitor patient, we will transfusion 1 unit blood. We will continue to consult with orthopedic surgeon (5) CKD (chronic kidney disease) stage 4, GFR 15-29 ml/min Conclusion/Plan: Patient's creatinine is 2.3 on today, Patient has a history of CKD, we will order gently IVF for pt, lab monitor, avoid nephrotoxic agents. pt May follow-up with nephrology as outpatient (6) AAA (abdominal aortic aneurysm) Conclusion/Plan: 08/06 Patient denies abdominal pain, Patient has no acute distress, her BP was slight lower at operating room surgical technologist, then become stable. CT of abdomen and pelvis show no acute rupture, AAA size is slight smaller than US monitor shown on four months ago. As we discussed at above, all team agreed to have surgery on tomorrow for pt. pt understood the risk and want to continue the surgery for her. pt has hx of AAA. pt was unknown her hx of AAA. in 03/2021 US of he abdomen showed 4.8X5.9 cm size with 8.2cm length at the distal abdominal aorta. draw picture and explained to pt what that means about AAA, explained the risk of this non-cardiac surgery with this size of AAA. pt verbally state she understood, she insisted "whatever risk has, I want to have surgery." Discussed pt's this conditions with orthopedics surgeon as well. continue control of pt's BP and resume home statin. tele and vital monitor Qualifiers: Presence of rupture: without rupture Qualified Code(s): I71.4 - Abdominal aortic aneurysm, without rupture (7) HTN (hypertension) Conclusion/Plan: Stable, we will resume patient home lisinopril and Cardizem (8) HLD (hyperlipidemia) Conclusion/Plan: Resume home statin (9) Arrhythmia Conclusion/Plan: pt has hx of arrhythmia. pt denies chest pain or Palpitations. We will order EKG, Continue compliance monitor, resume home Cardizem. (4) AAA (abdominal aortic aneurysm) Qualifiers: Presence of rupture: without rupture Qualified Code(s): I71.4 - Abdominal aortic aneurysm, without rupture - Current Meds Current Meds: Current Medications Generic Name Dose Route Start Last Admin Trade Name Freq PRN Reason Stop Dose Admin Acetaminophen 650 mg 08/05/21 13:59 08/05/21 21:25 Acetaminophen 325 Mg Tablet PO 650 mg Q4HR PRN Administration Pain 1 to 4 Atorvastatin Calcium 40 mg 08/05/21 21:00 08/05/21 20:03 Atorvastatin 40 Mg Tablet PO 40 mg QPM JANNETH Administration Diltiazem HCl 120 mg 08/05/21 21:00 08/05/21 20:03 Diltiazem Cd 120 Mg Capsule PO 120 mg QPM JANNETH Administration Duloxetine HCl 60 mg 08/06/21 09:00 08/06/21 08:51 Duloxetine 30 Mg Capsule PO 60 mg DAILY JANNETH Administration Ferrous Gluconate 324 mg 08/06/21 08:00 08/06/21 08:51 Ferrous Gluconate 324 Mg Tablet PO 324 mg DAILYWM JANNETH Administration Oxycodone HCl 5 mg 08/05/21 13:59 08/06/21 00:40 Oxycodone 5 Mg Tablet PO 5 mg Q4HR PRN Administration Pain 5 to 7 Pantoprazole Sodium 40 mg 08/06/21 08:00 08/06/21 08:51 Pantoprazole 40 Mg Vial IVP 40 mg QDAC JANNETH Administration Sodium Chloride 10 ml 08/05/21 17:00 08/06/21 08:51 Sodium Chloride Flush 0.9% 10 Ml Syringe IVP 10 ml 0100,0900,1700 PENDING SALE TO [facility] Administration - Lab Result Fish Bone Diagrams: 08/06/21 15:29 08/06/21 06:18 - Additional Planning My Orders: My Active Orders 08/05/21 17:00 Sodium Chloride Flush 0.9% [Normal Saline Flush 0.9%] 10 ml IVP 0100,0900,1700 08/05/21 21:00 Atorvastatin [Lipitor] 40 mg PO QPM diltiaZEM CD [Cardizem Cd] 120 mg PO QPM 08/06/21 General Surgery Consult [CONS] Routine FECAL OCCULT BLOOD (FIT) Urgent RBC, LEUKOREDUCED Stat TYPE AND SCREEN Stat 08/06/21 07:31 Echo Transthoracic Complete [ECHO] Stat 08/06/21 08:00 RBC, LEUKOREDUCED Stat TYPE AND SCREEN Stat Ferrous Gluconate [Fergon] 324 mg PO DAILYWM Pantoprazole [Protonix] 40 mg IVP QDAC 08/06/21 08:28 Levalbuterol [Xopenex] 1.25 mg INH Q4H PRN 08/06/21 08:29 Nebulizer/MDI Tx. [RC] .QIDPRN Resp Teach Nebulizer/MDI [RC] .ONCE Ipratropium/Albuterol [Duoneb] 3 ml INH RTQID PRN 08/06/21 08:30 Resp Teach Nebulizer/MDI [RC] .ONCE 08/06/21 09:00 DULoxetine [Cymbalta] 60 mg PO DAILY 08/06/21 10:37 RT [Oxygen Therapy] [RC] .PRN 08/06/21 10:40 Incentive Spirometry - RT [RC] TID 08/06/21 Lunch Regular Diet [DIET] 08/06/21 15:37 Transfuse RBCs Leukoreduced [RC] .ONCE 08/06/21 21:00 Heparin [Heparin Sodium (Porcine)] 5,000 unit SUBQ BID 08/06/21 22:00 CBC - COMP BLD CT W/AUTO DIFF [HEME] Timed 08/07/21 00:01 NPO except Meds [DIET] 08/07/21 05:00 BMP - BASIC METABOLIC PANEL [CHEM] DAILYLAB CBC - COMP BLD CT W/AUTO DIFF [HEME] DAILYLAB 08/08/21 05:00 BMP - BASIC METABOLIC PANEL [CHEM] DAILYLAB CBC - COMP BLD CT W/AUTO DIFF [HEME] DAILYLAB 08/09/21 05:00 BMP - BASIC METABOLIC PANEL [CHEM] DAILYLAB CBC - COMP BLD CT W/AUTO DIFF [HEME] DAILYLAB 08/10/21 05:00 BMP - BASIC METABOLIC PANEL [CHEM] DAILYLAB CBC - COMP BLD CT W/AUTO DIFF [HEME] DAILYLAB Subjective - Subjective Patient Reports: Resting Comfortably Objective Vital Signs: Vital Signs - 24 hr 08/05/21 08/05/21 08/05/21 16:00 20:05 23:30 Temperature 36.3 C L 36.4 C L 36.7 C Heart Rate [ 74 67 85 Brachial] Respiratory 18 16 18 Rate Blood Pressure 113/67 114/69 100/61 [Right Brachial artery] O2 Saturation 98 94 88 L 08/06/21 08/06/21 08/06/21 04:24 05:00 06:50 Temperature 36.9 C Heart Rate [ 64 85 Brachial] Respiratory 16 16 Rate Blood Pressure 92/55 L 87/47 L [Right Brachial artery] O2 Saturation 95 95 08/06/21 08/06/21 08/06/21 07:50 08:00 13:00 Temperature 36.7 C 36.7 C 36.7 C Heart Rate [ 71 76 81 Brachial] Respiratory 18 17 24 Rate Blood Pressure 89/52 L 98/58 L 113/48 L [Right Brachial artery] O2 Saturation 95 95 93 Oxygen O2 Source Room air I&O (Last 24 Hrs): Intake and Output Totals x24h 08/04/21 08/05/21 08/06/21 23:59 23:59 23:59 Intake Total 240 1910 Output Total 40 300 Balance 200 1610 General: Alert, Oriented x3, Cooperative, No acute distress HEENT: Atraumatic, PERRLA Neck: Supple Lymphatic: no adenopathy Neuro: Alert, Non Focal, Oriented Times 3 Cardiovascular: Regular rate, Normal S1, Normal S2 Respiratory: Chest non-tender, No respiratory distress Abdomen: Normal bowel sounds, Soft, No tenderness Extremities: Normal pulses - Results Results: Laboratory Results WBC 10.8 x10^3/uL (4.8-10.8) 08/06/21 15: RBC 2.78 10^6/uL (4.20-5.40) L 08/06/21 15:29 Hgb 7.9 g/dL (12.0-16.0) L 08/06/21 15:29 Hct 25.7 % (37.0-47.0) L 08/06/21 15:29 MCV 92.4 fL (81.0-99.0) 08/06/21 15:29 MCH 28.4 pg (27.0-31.0) 08/06/21 15:29 MCHC 30.7 g/dL (32.0-36.0) L 08/06/21 15:29 RDW 16.0 % (12.0-15.0) H 08/06/21 15:29 Plt Count 241 10^3/uL (130-450) 08/06/21 15:29 MPV 10.1 fL (7.9-10.8) 08/06/21 15:29 Reticulocyte % (Auto) 1.27 % (0.5-2.3) 08/05/21 11:08 Neut # (Auto) 7.6 10^3/uL (1.5-6.6) H 08/06/21 15:29 Lymph # (Auto) 1.6 10^3/uL (1.5-3.5) 08/06/21 15:29 [place] # (Auto) 1.3 10^3/uL (0.0-1.0) H 08/06/21 15:29 Eos # (Auto) 0.1 10^3/uL (0.0-0.7) 08/06/21 15:29 Baso # (Auto) 0.1 10^3/uL (0.0-0.1) 08/06/21 15:29 Absolute Nucleated RBC 0.00 x10^3/uL 08/06/21 15:29 Total Counted 100 08/05/21 11:08 Band Neuts % (Manual) 1 % (0-10) 08/05/21 11:08 Abnorm Lymph % (Manual) 0 % 08/05/21 11:08 Nucleated RBC % 0.0 /100WBC 08/06/21 15:29 Neutrophils # (Manual) 11.0 10^3/uL (1.5-6.6) H 08/05/21 11:08 Lymphocytes # (Manual) 1.2 10^3/uL (1.5-3.5) L 08/05/21 11:08 Monocytes # (Manual) 1.5 10^3/uL (0.0-1.0) H 08/05/21 11:08 Eosinophils # (Manual) 0.0 10^3/uL (0-0.7) 08/05/21 11:08 Basophils # (Manual) 0.0 10^3/uL (0-0.1) 08/05/21 11:08 Differential Comment MANUAL DIFFERENTIAL 08/05/21 11:08 WBC Morphology NORMAL APPEARANCE (NORMAL) 08/05/21 11:08 Platelet Estimate NORMAL (130-450,000) (NORMAL) 08/05/21 11:08 Platelet Morphology NORMAL APPEARANCE (NORMAL) 08/05/21 11:08 RBC Morph Micro Appear NORMAL APPEARANCE (NORMAL) 08/05/21 11:08 Absolute Retic 0.042 10^6/uL (0.020-0.110) 08/05/21 11:08 INR (Fingerstick) 1.1 (0.8-1.2) 08/05/21 16:25 Sodium 139 mmol/L (135-145) 08/06/21 06:18 Potassium 4.2 mmol/L (3.5-5.0) 08/06/21 06:18 Chloride 108 mmol/L (101-111) 08/06/21 06:18 Carbon Dioxide 23 mmol/L (21-32) 08/06/21 06:18 Anion Gap 8.0 (6-13) 08/06/21 06:18 BUN 55 mg/dL (6-20) H 08/06/21 06:18 Creatinine 2.3 mg/dL (0.4-1.0) H 08/06/21 06:18 Estimated GFR (MDRD) 21 (>89) L 08/06/21 06:18 Glucose 98 mg/dL (70-100) 08/06/21 06:18 Calcium 7.9 mg/dL (8.5-10.3) L 08/06/21 06:18 Iron 23 ug/dL (28-170) L 08/05/21 11:08 TIBC 321 ug/dL (250-450) 08/05/21 11:08 % Saturation 7 % (20-50) L 08/05/21 11:08 Transferrin 229 mg/dL (192-382) 08/05/21 11:08 Ferritin 68.1 ng/mL (11.0-306.8) 08/05/21 11:08 Total Bilirubin 0.5 mg/dL (0.2-1.0) 08/05/21 11:08 AST 22 IU/L (10-42) 08/05/21 11:08 ALT 17 IU/L (10-60) 08/05/21 11:08 Alkaline Phosphatase 97 IU/L (42-121) 08/05/21 11:08 Lactate Dehydrogenase 145 IU/L (91-225) 08/05/21 18:38 Total Protein 7.4 g/dL (6.7-8.2) 08/05/21 11:08 Albumin 4.1 g/dL (3.2-5.5) 08/05/21 11:08 Globulin 3.3 g/dL (2.1-4.2) 08/05/21 11:08 Albumin/Globulin Ratio 1.2 (1.0-2.2) 08/05/21 11:08 Lipase 39 U/L (22-51) 08/05/21 11:08 Vitamin B12 182 pg/mL (180-914) 08/05/21 11:08 Urine Color YELLOW 08/05/21 19:45 Urine Clarity CLEAR (CLEAR) 08/05/21 19:45 Urine pH 5.0 PH (5.0-7.5) 08/05/21 19:45 Ur Specific [place] >=1.030 (1.002-1.030) H 08/05/21 19:45 Urine Protein NEGATIVE mg/dL (NEGATIVE) 08/05/21 19:45 Urine Glucose (UA) NEGATIVE mg/dL (NEGATIVE) 08/05/21 19:45 Urine Ketones NEGATIVE mg/dL (NEGATIVE) 08/05/21 19:45 Urine Occult Blood NEGATIVE (NEGATIVE) 08/05/21 19:45 Urine Nitrite NEGATIVE (NEGATIVE) 08/05/21 19:45 Urine Bilirubin NEGATIVE (NEGATIVE) 08/05/21 19:45 Urine Urobilinogen 0.2 (NORMAL) E.U./dL (NORMAL) 08/05/21 19:45 Ur Leukocyte Esterase NEGATIVE (NEGATIVE) 08/05/21 19:45 Urine RBC None Seen /HPF (0-5) 08/05/21 19:45 Urine WBC 0-3 /HPF (0-5) 08/05/21 19:45 Ur Squamous Epith Cells FEW Squamous (<= Few) 08/05/21 19:45 Urine Bacteria None Seen /HPF (None Seen) 08/05/21 19:45 Urine Culture Comments NOT INDICATED 08/05/21 19:45 Nasal Adenovirus (PCR) NOT DETECTED 08/05/21 11:14 Nasal B. parapertussis DNA (PCR) NOT DETECTED 08/05/21 11:14 Nasal Coronavir 229E PCR NOT DETECTED 08/05/21 11:14 Nasal Coronavir HKU1 PCR NOT DETECTED 08/05/21 11:14 Nasal Coronavir NL63 PCR NOT DETECTED 08/05/21 11:14 Nasal Coronavir OC43 PCR NOT DETECTED 08/05/21 11:14 Nasal Enterovir/Rhinovir PCR NOT DETECTED 08/05/21 11:14 Nasal Influenza B PCR NOT DETECTED 08/05/21 11:14 Nasal Influenza A PCR NOT DETECTED 08/05/21 11:14 Nasal Parainfluen 1 PCR NOT DETECTED 08/05/21 11:14 Nasal Parainfluen 2 PCR NOT DETECTED 08/05/21 11:14 Nasal Parainfluen 3 PCR NOT DETECTED 08/05/21 11:14 Nasal Parainfluen 4 PCR NOT DETECTED 08/05/21 11:14 Nasal RSV (PCR) NOT DETECTED 08/05/21 11:14 Nasal B.pertussis DNA PCR NOT DETECTED 08/05/21 11:14 Nasal C.pneumoniae (PCR) NOT DETECTED 08/05/21 11:14 Russ Human Metapneumo PCR NOT DETECTED 08/05/21 11:14 Nasal M.pneumoniae (PCR) NOT DETECTED 08/05/21 11:14 Nasal SARS-CoV-2 (PCR) NOT DETECTED 08/05/21 11:14 Blood Type A NEGATIVE 08/06/21 08:00 Blood Type Recheck A NEGATIVE 08/06/21 09:32 Antibody Screen NEGATIVE 08/06/21 08:00 Crossmatch IS Only See Detail 08/06/21 08:00 ABX Reporting Has patient been on IV antibiotics over the past 48 hours?: No Current Medications - Current Medications Current Medications: Active Medications Acetaminophen (Acetaminophen 325 Mg Tablet) 650 mg PO Q4HR PRN PRN Reason: Pain 1 to 4 Last Admin: 08/05/21 21:25 Dose: 650 mg Documented by: Albuterol/Ipratropium (Ipratropium/Albuterol 3 Ml Neb) 3 ml INH RTQID PRN PRN Reason: Shortness of Air/Wheezing Atorvastatin Calcium (Atorvastatin 40 Mg Tablet) 40 mg PO QPM PENDING SALE TO [facility] Last Admin: 08/05/21 20:03 Dose: 40 mg Documented by: Diltiazem HCl (Diltiazem Cd 120 Mg Capsule) 120 mg PO QPM PENDING SALE TO [facility] Last Admin: 08/05/21 20:03 Dose: 120 mg Documented by: Duloxetine HCl (Duloxetine 30 Mg Capsule) 60 mg PO DAILY PENDING SALE TO [facility] Last Admin: 08/06/21 08:51 Dose: 60 mg Documented by: Ferrous Gluconate (Ferrous Gluconate 324 Mg Tablet) 324 mg PO DAILYWM PENDING SALE TO [facility] Last Admin: 08/06/21 08:51 Dose: 324 mg Documented by: Heparin Sodium (Porcine) (Heparin 5,000 Unit/Ml Vial) 5,000 unit SUBQ BID PENDING SALE TO [facility] Levalbuterol HCl (Levalbuterol 1.25 Mg/3 Ml Neb) 1.25 mg INH Q4H PRN PRN Reason: Shortness of Air/Wheezing Morphine Sulfate (Morphine 2 Mg/Ml Carpuject) 2 mg IVP Q2HR PRN PRN Reason: Pain 8 to 10 Ondansetron HCl (Ondansetron 4 Mg/2 Ml Vial) 4 mg IVP Q6HR PRN PRN Reason: Nausea / Vomiting Oxycodone HCl (Oxycodone 5 Mg Tablet) 5 mg PO Q4HR PRN PRN Reason: Pain 5 to 7 Last Admin: 08/06/21 00:40 Dose: 5 mg Documented by: Pantoprazole Sodium (Pantoprazole 40 Mg Vial) 40 mg IVP QDAC PENDING SALE TO [facility] Last Admin: 08/06/21 08:51 Dose: 40 mg Documented by: Sodium Chloride (Sodium Chloride Flush 0.9% 10 Ml Syringe) 10 ml IVP PRN PRN PRN Reason: NEEDED PER PROVIDER ORDERS Sodium Chloride (Sodium Chloride Flush 0.9% 10 Ml Syringe) 10 ml IVP 0100,0900 ,1700 PENDING SALE TO [facility] Last Admin: 08/06/21 08:51 Dose: 10 ml Documented by: Atorvastatin Calcium 40 mg PO DAILY 08/05/21 Diltiazem HCl [Diltiazem 12Hr ER] 120 mg PO QPM 08/05/21 Duloxetine HCl [Cymbalta] 60 mg PO DAILY 08/05/21 lisinopriL [Zestril] 5 mg PO DAILY 08/05/21 Multivitamin 1 tab PO DAILY 08/06/21 diphenhydrAMINE [Benadryl] 25 mg PO DAILY PRN 08/06/21
[2021-08-06] MEDS: ATORVASTATIN 40 MG TABLET PO SCH (20:20)
[2021-08-06] MEDS: diltiaZEM CD 120 MG CAPSULE PO SCH (20:20)
[2021-08-06 22:06] LABS: BASOPHILS % (AUTO) 0.4 %; EOSINOPHILS # (AUTO) 0.3 10^3/uL (0.0-0.7); EOSINOPHILS % (AUTO) 2.7 %; HCT - HEMATOCRIT 29.1 % (37.0-47.0); HGB - HEMOGLOBIN 9.1 g/dL (12.0-16.0); LYMPHOCYTES # (AUTO) 1.3 10^3/uL (1.5-3.5); LYMPHOCYTES % (AUTO) 13.9 %; MEAN CORPUSCULAR HEMOGLOBIN 28.7 pg (27.0-31.0); MEAN CORPUSCULAR HGB CONC 31.3 g/dL (32.0-36.0); MEAN CORPUSCULAR VOLUME 91.8 fL (81.0-99.0); MEAN PLATELET VOLUME 10.1 fL (7.9-10.8); MONOCYTES # (AUTO) 1.3 10^3/uL (0.0-1.0); MONOCYTES % (AUTO) 13.5 %; NEUTROPHILS # (AUTO) 6.6 10^3/uL (1.5-6.6); NEUTROPHILS % (AUTO) 68.8 %; PLT - PLATELET COUNT 221 10^3/uL (130-450); RED BLOOD COUNT 3.17 10^6/uL (4.20-5.40); RED CELL DISTRIBUTION WIDTH 15.7 % (12.0-15.0); WHITE BLOOD COUNT 9.5 x10^3/uL (4.8-10.8)
[2021-08-07] MEDS: SODIUM CHLORIDE FLUSH 0.9% 10 ML SYRINGE IVP SCH ×3 (05:25→17:30)
[2021-08-07] MEDS: PANTOPRAZOLE 40 MG VIAL IVP SCH (05:32)
[2021-08-07] MEDS: oxyCODONE 5 MG TABLET PO PRN ×2 (05:32→20:52)
[2021-08-07 06:16] LABS: BASOPHILS % (AUTO) 0.4 %; EOSINOPHILS % (AUTO) 3.1 %; HCT - HEMATOCRIT 26.3 % (37.0-47.0); HGB - HEMOGLOBIN 8.4 g/dL (12.0-16.0); LYMPHOCYTES % (AUTO) 15.7 %; MEAN CORPUSCULAR HEMOGLOBIN 28.9 pg (27.0-31.0); MEAN CORPUSCULAR HGB CONC 31.9 g/dL (32.0-36.0); MEAN CORPUSCULAR VOLUME 90.4 fL (81.0-99.0); MEAN PLATELET VOLUME 10.3 fL (7.9-10.8); MONOCYTES % (AUTO) 16.1 %; NEUTROPHILS % (AUTO) 64.1 %; PLT - PLATELET COUNT 213 10^3/uL (130-450); RED BLOOD COUNT 2.91 10^6/uL (4.20-5.40); RED CELL DISTRIBUTION WIDTH 15.6 % (12.0-15.0); WHITE BLOOD COUNT 9.8 x10^3/uL (4.8-10.8)
[2021-08-07 06:19] LABS: ABNORMAL LYMPHS % (MANUAL) 0 %; BAND NEUTROPHILS % (MANUAL) 0 %
[2021-08-07 06:27] LABS: CREATININE 1.6 mg/dL (0.4-1.0)
[2021-08-07] MEDS ORDERED: IPRATROPIUM 0.2 MG/ML NEB INH PRN (07:32)
[2021-08-07 07:34] LABS: DIFFERENTIAL COMMENT MANUAL DIFFERENTIAL; EOSINOPHILS # (MANUAL) 0.2 10^3/uL (0-0.7); LYMPHOCYTES # (MANUAL) 1.8 10^3/uL (1.5-3.5); LYMPHOCYTES % (MANUAL) 13 %; MYELOCYTES % (MANUAL) 3 %; NEUTROPHILS # (MANUAL) 6.6 10^3/uL (1.5-6.6); RBC MORPHOLOGY (MULTIPLE) 3+ ANISOCYTOSIS (NORMAL); REACTIVE LYMPHS % (MANUAL) 5 %
[2021-08-07] MEDS ORDERED: IPRATROPIUM 0.2 MG/ML NEB INH ONE (08:00)
--- NOTE | 2021-08-07 08:15 | ANESTHESIA ---
Pre-Anesthesia VS, & Labs Height: 5 ft 1 in Weight (kg): 58 kg Body Mass Index: 24.1 BMI Classification: Healthy weight - NPO >8 hours - Is Patient ?: No - Lab Results Lab results reviewed: Yes Fish Bones: 08/07/21 05:58 08/07/21 05:58 <Ernst Marrero - Last Filed: 08/07/21 08:13> - Lab Results Fish Bones: 08/07/21 05:58 08/07/21 05:58 <Hayder Miles - Last Filed: 08/07/21 11:15> - Diagnosis Displaced, unstable comminuted intertrochanteric fracture of right hip (Ernst Marrero) - Procedure Right Hip Nailing (Ernst Marrero) Vital Signs: Temp Pulse Resp BP Pulse Ox 36.9 C 76 18 100/54 L 95 08/07/21 08:45 08/07/21 08:45 08/07/21 08:45 08/07/21 08:45 08/07/21 08:45 - Lab Results Current Lab Results: Laboratory Tests 08/07/21 05:58: Sodium 136, Potassium 4.0, Chloride 105, Carbon Dioxide 23, A nion Gap 8.0, BUN 38 H, Creatinine 1.6 H, Estimated GFR (MDRD) 32 L, Glucose 105 H, Calcium 8.0 L 08/07/21 05:58: WBC 9.8, RBC 2.91 L, Hgb 8.4 L, Hct 26.3 L, MCV 90.4, MCH 28.9, MCHC 31.9 L, RDW 15.6 H, Plt Count 213, MPV 10.3, Neut # (Auto) Not Reportable, Lymph # (Auto) Not Reportable, [place] # (Auto) Not Reportable, Eos # (Auto) Not Reportable, Baso # (Auto) Not Reportable, Absolute Nucleated RBC Not Reportable, Total Counted 100, Band Neuts % (Manual) 0, Reactive Lymphs % (Man) 5, Abnorm Lymph % (Manual) 0, Myelocytes % 3 H, Nucleated RBC % Not Reportable, Neutrophils # (Manual) 6.6, Lymphocytes # (Manual) 1.8, Monocytes # (Manual) 1.0, Eosinophils # (Manual) 0.2, Basophils # (Manual) 0.0, Differential Comment MANUAL DIFFERENTIAL, RBC Morph Micro Appear 3+ ANISOCYTOSIS 08/06/21 22:01: WBC 9.5, RBC 3.17 L, Hgb 9.1 L, Hct 29.1 L, MCV 91.8, MCH 28.7, MCHC 31.3 L, RDW 15.7 H, Plt Count 221, MPV 10.1, Neut # (Auto) 6.6, Lymph # (Auto) 1.3 L, [place] # (Auto) 1.3 H, Eos # (Auto) 0.3, Baso # (Auto) 0.0, Absolute Nucleated RBC 0.00, Nucleated RBC % 0.0 08/06/21 15:29: WBC 10.8, RBC 2.78 L, Hgb 7.9 L, Hct 25.7 L, MCV 92.4, MCH 28.4, MCHC 30.7 L, RDW 16.0 H, Plt Count 241, MPV 10.1, Neut # (Auto) 7.6 H, Lymph # (Auto) 1.6, [place] # (Auto) 1.3 H, Eos # (Auto) 0.1, Baso # (Auto) 0.1, Absolute Nucleated RBC 0.00, Nucleated RBC % 0.0 08/06/21 09:32: Blood Type Recheck A NEGATIVE 08/06/21 09:32: WBC 9.3, RBC 2.57 L, Hgb 7.4 L, Hct 23.9 L, MCV 93.0, MCH 28.8, MCHC 31.0 L, RDW 16.0 H, Plt Count 238, MPV 10.5, Neut # (Auto) 6.4, Lymph # (Auto) 1.5, [place] # (Auto) 1.2 H, Eos # (Auto) 0.2, Baso # (Auto) 0.1, Absolute Nucleated RBC 0.00, Nucleated RBC % 0.0 08/06/21 08:00: Blood Type A NEGATIVE, Antibody Screen NEGATIVE, Crossmatch IS Only See Detail 08/06/21 06:18: Sodium 139, Potassium 4.2, Chloride 108, Carbon Dioxide 23, Anion Gap 8.0, BUN 55 H, Creatinine 2.3 H, Estimated GFR (MDRD) 21 L, Glucose 98, Calcium 7.9 L 08/06/21 06:18: WBC 9.0, RBC 2.41 L, Hgb 7.0 L*, Hct 22.3 L, MCV 92.5, MCH 29.0, MCHC 31.4 L, RDW 16.1 H, Plt Count 219, MPV 10.2, Neut # (Auto) 5.7, Lymph # (Auto) 1.6, [place] # (Auto) 1.4 H, Eos # (Auto) 0.2, Baso # (Auto) 0.1, Absolute Nucleated RBC 0.00, Nucleated RBC % 0.0 08/05/21 18:38: Lactate Dehydrogenase 145 08/05/21 16:25: INR (Fingerstick) 1.1 08/05/21 11:08: Ferritin 68.1, Vitamin B12 182 08/05/21 11:08: Iron 23 L, TIBC 321, % Saturation 7 L, Transferrin 229 08/05/21 11:08: RBC 3.29 L, Reticulocyte % (Auto) 1.27, Absolute Retic 0.042 08/05/21 11:08: Sodium 141, Potassium 4.5, Chloride 106, Carbon Dioxide 23, Anion Gap 12.0, BUN 50 H, Creatinine 2.3 H, Estimated GFR (MDRD) 21 L, Glucose 124 H, Calcium 9.1, Total Bilirubin 0.5, AST 22, ALT 17, Alkaline Phosphatase 97, Total Protein 7.4, Albumin 4.1, Globulin 3.3, Albumin/Globulin Ratio 1.2, Lipase 39 08/05/21 11:08: WBC 13.7 H, RBC 3.30 L, Hgb 9.5 L, Hct 29.9 L, MCV 90.6, MCH 28.8, MCHC 31.8 L, RDW 15.9 H, Plt Count 287, MPV 10.4, Neut # (Auto) Not Reportable, Lymph # (Auto) Not Reportable, [place] # (Auto) Not Reportable, Eos # (Auto) Not Reportable, Baso # (Auto) Not Reportable, Absolute Nucleated RBC Not Reportable, Total Counted 100, Band Neuts % (Manual) 1, Abnorm Lymph % (Manual) 0, Nucleated RBC % Not Reportable, Neutrophils # (Manual) 11.0 H, Lymphocytes # (Manual) 1.2 L, Monocytes # (Manual) 1.5 H, Eosinophils # (Manual) 0.0, Basophils # (Manual) 0.0, Differential Comment MANUAL DIFFERENTIAL, WBC Morphology NORMAL APPEARANCE, Platelet Estimate NORMAL (130-450,000), Platelet Morphology NORMAL APPEARANCE, RBC Morph Micro Appear NORMAL APPEARANCE Home Medications and Allergies <Ernst Marrero - Last Filed: 08/07/21 08:13> <Hayder Miles - Last Filed: 08/07/21 11:15> Home Medications: Ambulatory Orders Atorvastatin Calcium 40 mg PO DAILY 08/05/21 Diltiazem HCl [Diltiazem 12Hr ER] 120 mg PO QPM 08/05/21 Duloxetine HCl [Cymbalta] 60 mg PO DAILY 08/05/21 lisinopriL [Zestril] 5 mg PO DAILY 08/05/21 Multivitamin 1 tab PO DAILY 08/06/21 diphenhydrAMINE [Benadryl] 25 mg PO DAILY PRN 08/06/21 Active Medications Acetaminophen (Acetaminophen 325 Mg Tablet) 650 mg PO Q4HR PRN PRN Reason: Pain 1 to 4 Last Admin: 08/07/21 08:44 Dose: 650 mg Documented by: Atorvastatin Calcium (Atorvastatin 40 Mg Tablet) 40 mg PO QPM [facility] Last Admin: 08/06/21 20:20 Dose: 40 mg Documented by: Diltiazem HCl (Diltiazem Cd 120 Mg Capsule) 120 mg PO QPM [facility] Last Admin: 08/06/21 20:20 Dose: 120 mg Documented by: Duloxetine HCl (Duloxetine 30 Mg Capsule) 60 mg PO DAILY [facility] Last Admin: 08/07/21 08:45 Dose: 60 mg Documented by: Ferrous Gluconate (Ferrous Gluconate 324 Mg Tablet) 324 mg PO DAILYWM [facility] Last Admin: 08/07/21 08:45 Dose: 324 mg Documented by: Heparin Sodium (Porcine) (Heparin 5,000 Unit/Ml Vial) 5,000 unit SUBQ BID [facility] Ipratropium [place] (Ipratropium 0.2 Mg/Ml Neb) 0.5 mg INH QID PRN PRN Reason: Shortness of Air/Wheezing Last Admin: 08/07/21 08:02 Dose: 0.5 mg Documented by: Levalbuterol HCl (Levalbuterol 1.25 Mg/3 Ml Neb) 1.25 mg INH Q4H PRN PRN Reason: Shortness of Air/Wheezing Last Admin: 08/07/21 08:02 Dose: 1.25 mg Documented by: Morphine Sulfate (Morphine 2 Mg/Ml Carpuject) 2 mg IVP Q2HR PRN PRN Reason: Pain 8 to 10 Ondansetron HCl (Ondansetron 4 Mg/2 Ml Vial) 4 mg IVP Q6HR PRN PRN Reason: Nausea / Vomiting Oxycodone HCl (Oxycodone 5 Mg Tablet) 5 mg PO Q4HR PRN PRN Reason: Pain 5 to 7 Last Admin: 08/07/21 05:32 Dose: 5 mg Documented by: Pantoprazole Sodium (Pantoprazole 40 Mg Vial) 40 mg IVP QDAC [facility] Last Admin: 08/07/21 05:32 Dose: 40 mg Documented by: Sodium Chloride (Sodium Chloride Flush 0.9% 10 Ml Syringe) 10 ml IVP PRN PRN PRN Reason: NEEDED PER PROVIDER ORDERS Sodium Chloride (Sodium Chloride Flush 0.9% 10 Ml Syringe) 10 ml IVP 0100,0900,1700 [facility] Last Admin: 08/07/21 08:46 Dose: 10 ml Documented by: Atorvastatin Calcium 40 mg PO DAILY 08/05/21 Diltiazem HCl [Diltiazem 12Hr ER] 120 mg PO QPM 08/05/21 Duloxetine HCl [Cymbalta] 60 mg PO DAILY 08/05/21 lisinopriL [Zestril] 5 mg PO DAILY 08/05/21 Multivitamin 1 tab PO DAILY 08/06/21 diphenhydrAMINE [Benadryl] 25 mg PO DAILY PRN 08/06/21 Allergies/Adverse Reactions: Allergies Allergy/AdvReac Type Severity Reaction Status Date / Time pollen extracts Allergy Respiratory Verified 08/05/21 09:38 Anes History & Medical History - Anesthetic History Anesthesia Complications: reports: No previous complications Family history of Anesthesia Complications: Denies Family history of Malignant Hyperthermia: Denies - Medical History Cardiovascular: reports: Hypertension, Arrhythmia, Other (AAA(stable via recent scans)) Pulmonary: reports: None Gastrointestinal: reports: None Urinary: reports: None Musculoskeletal: reports: Osteoarthritis Endocrine/Autoimmune: reports: None Skin: reports: None Smoking Status: Former smoker - Surgical History Eyes Ears Nose Throat (EENT): reports: Cataracts <Ernst Marrero - Last Filed: 08/07/21 08:13> - Anesthetic History Anesthesia Complications: reports: No previous complications <Hayder Miles P - Last Filed: 08/07/21 11:15> Results - EKG Results EKG Comparison: Reviewed EKG - Echo Results Echo Results: Report reviewed <Ernst Marrero - Last Filed: 08/07/21 08:13> Exam General: Alert, Oriented x3, Cooperative, No acute distress Dental: WNL Mouth Openin Fingerbreadth Neck Mobility: Normal Mallampati classification: II Respiratory: Lungs clear, Normal breath sounds, No respiratory distress, No accessory muscle use Cardiovascular: Regular rate, Normal S1, Normal S2, No murmurs <Ernst Marrero - Last Filed: 08/07/21 08:13> General: Alert Dental: Dentures full Upper, Dentures full Lower Thyromental Distance: 4-6 cm Cardiovascular: Other (Telemetry shows SR w/PACs. Echo reads SR w/PVCs) Extremities: Other (pain at R great toe) Neurological: Normal speech Mental/Cognitive Status: Alert/Oriented X3, Normal for patient Cognitive Status: Within normal limits <Hayder Miles P - Last Filed: 08/07/21 11:15> Plan Anesthesia Type: General (backup), Spinal, Fascia Iliaca Block Consent for Procedure(s) Verified and Reviewed: Yes Code Status: Attempt Resuscitation ASA classification: 3-Severe systemic disease Is this case an emergency?: No <Ernst Marrero - Last Filed: 08/07/21 08:13>
[2021-08-07] MEDS: ACETAMINOPHEN 325 MG TABLET PO PRN (08:44)
[2021-08-07] MEDS: DULoxetine 30 MG CAPSULE PO SCH (08:45)
[2021-08-07] MEDS: FERROUS GLUCONATE 324 MG TABLET PO SCH (08:45)
[2021-08-07] MEDS ORDERED: IPRATROPIUM 0.2 MG/ML NEB INH SCH (09:00)
[2021-08-07] MEDS ORDERED: PROPOFOL 500 MG/50 ML 500 MG/50 ML VIAL ONE (12:00)
[2021-08-07] MEDS ORDERED: KETAMINE 500 MG/10 ML VIAL ONE (12:05)
[2021-08-07] MEDS ORDERED: ROPIVACAINE 0.5% PF 20 ML AMPULE ONE (12:05)
[2021-08-07] MEDS ORDERED: SODIUM CHLORIDE 0.9% 10 ML VIAL IVP ONE ×2 (12:05)
[2021-08-07] MEDS ORDERED: LIDOCAINE-MPF 2% 5 ML VIAL ONE (12:05)
[2021-08-07] MEDS ORDERED: BUPIVACAINE 0.25% PF 30 ML VIAL ONE (12:35)
[2021-08-07] MEDS ORDERED: ePHEDrine 50 MG/ML VIAL IVP ONE (13:27)
--- NOTE | 2021-08-07 13:28 | PROVIDER PROGRESS NOTE ---
Assessment/Plan - Problem List (1) Hip fracture Qualifiers: Encounter type: initial encounter Fracture type: closed Laterality: right Qualified Code(s): S72.001A - Fracture of unspecified part of neck of right femur, initial encounter for closed fracture Assessment/Plan: 08/07 pt is on the surgery now. I called pt's on today morning again and left message, but I did not receive phone call back. pt was alert and oriented plus 4, she verbally understood all risks from surgery, she confirmed she want to have surgery. we will followup with s/p care for pt. 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 I did call [facility], and [place], no response call back. I called [place], finally orthopedics in [place] can not take any more pt. CT of abdomen/pelvis show AAA is stable. Pt is alert and oriented, she is clearly and verbally state she understood all risks, and she want to continue to have her right hip repair at our hospital. After discussed with all team, we all agreed to have surgery for pt on tomorrow. NPO on midnight, plan to have surgery on tomorrow morning. Patient had a mechanical fall at right side, she denies any loss of consciousness. X-ray review right hip fracture. Surgeon was consulted, Plan to have surgery on tomorrow. Pain control, consult with surgeon, NPO After midnight. (2) Encounter for preoperative assessment for noncoronary cardiac surgery Conclusion/Plan: 08/07 pt is on the surgery now. As we discussed on yesterday, our orthopedics surgeon and chief surgeon both believe we should continue surgery for pt at our hospital with low risk. we will followup with s/p care for pt 08/06 pt had EKG, which show SR. EHCO show normal EF, no evidence for aortic stenosis, moderate elevated abnormal right heart pressure, RVSP 64mmHG. Patient denies any cardiac history. he denies chest pain and Loss of conscio usness at this time. Patient had a echo done at 10/2019 Which show unremarkable. we will order EKG, pt has hx of Arrhythmia, and PT/INR. According to revised cardiac risk index (Yared criteria), Estimated risk of adverse outcome with noncardiac surgery is low risk, and 0.9% for Estimated rate of myocardial infarction, pulmonary edema, ventricular fibrillation, cardiac arrest or complete heart block. (3)anemia 08/07 HGB is 8.4 after pt had one unit of blood, we continue H&H for pt after surgery. 08/06 Patient's HGB drop to 7 from 9.5 on yesterday. Patient has history of chronic anemia. Consult with GI surgeon. pt's occult stool test is negative. Start with Protonix per GI surgeon suggestion. It is likely caused by hemodilution and patient developed hematoma. Repeat CBC show patient had hemoglobin 7.9. Per Orthopedic surgeon's suggestion, we will transfusion 1 units of blood for patient. Continue H&H (4)hematoma 08/07 pt is on the surgery for hip repair, orthopedics surgeon was aware of pt's hematoma. will continue s/p care for pt 08/06 CT of abdomen and pelvis concern pt developed intramuscular hematoma at right abductor josh muscle from right hip injury, pt also develop lower BP at the time. After pt had IVF, her BP return to normal arrange. pt has no acute distress. We will continue CBC monitor patient, we will transfusion 1 unit blood. We will continue to consult with orthopedic surgeon (5) CKD (chronic kidney disease) stage 4, GFR 15-29 ml/min Conclusion/Plan: 08/07 creatininie is 1.6, improved. precaution of fluid overloaded as well. continue lab monitor Patient's creatinine is 2.3 on today, Patient has a history of CKD, we will order gently IVF for pt, lab monitor, avoid nephrotoxic agents. 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 CT of abdomen and pelvis show no acute rupture, AAA size is slight smaller than US monitor shown on four mon ths ago. As we discussed at above, all team agreed to have surgery on tomorrow for pt. pt understood the risk and want to continue the surgery for her. pt has hx of AAA. pt was unknown her hx of AAA. in 03/2021 US of he abdomen showed 4.8X5.9 cm size with 8.2cm length at the distal abdominal aorta. draw picture and explained to pt what that means about AAA, explained the risk of this non-cardiac surgery with this size of AAA. pt verbally state she understood, she insisted "whatever risk has, I want to have surgery." Discussed pt's this conditions with orthopedics surgeon as well. continue control of pt's BP and resume home statin. tele and vital monitor Qualifiers: Presence of rupture: without rupture Qualified Code(s): I71.4 - Abdominal aortic aneurysm, without rupture (7) HTN (hypertension) Conclusion/Plan: Stable, we will resume patient home lisinopril and Cardizem (8) HLD (hyperlipidemia) Conclusion/Plan: Resume home statin (9) Arrhythmia Conclusion/Plan: pt has hx of arrhythmia. pt denies chest pain or Palpitations. 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 (4) AAA (abdominal aortic aneurysm) Qualifiers: Presence of rupture: without rupture Qualified Code(s): I71.4 - Abdominal aortic aneurysm, without rupture - Current Meds Current Meds: Current Medications Generic Name Dose Route Start Last Admin Trade Name Freq PRN Reason Stop Dose Admin Acetaminophen 650 mg 08/05/21 13:59 08/07/21 08:44 Acetaminophen 325 Mg Tablet PO 650 mg Q4HR PRN Administration Pain 1 to 4 Atorvastatin Calcium 40 mg 08/05/21 21:00 08/06/21 20:20 Atorvastatin 40 Mg Tablet PO 40 mg QPM JANNETH Administration Diltiazem HCl 120 mg 08/05/21 21:00 08/06/21 20:20 Diltiazem Cd 120 Mg Capsule PO 120 mg QPM JANNETH Administration Duloxetine HCl 60 mg 08/06/21 09:00 08/07/21 08:45 Duloxetine 30 Mg Capsule PO 60 mg DAILY JANNETH Administration Ferrous Gluconate 324 mg 08/06/21 08:00 08/07/21 08:45 Ferrous Gluconate 324 Mg Tablet PO 324 mg DAILYWM JANNETH Administration Ipratropium [place] 0.5 mg 08/07/21 07:32 08/07/21 08:02 Ipratropium 0.2 Mg/Ml Neb INH 0.5 mg QID PRN Administration Shortness of Air/Wheezing Levalbuterol HCl 1.25 mg 08/06/21 08:28 08/07/21 08:02 Levalbuterol 1.25 Mg/3 Ml Neb INH 1.25 mg Q4H PRN Administration Shortness of Air/Wheezing Oxycodone HCl 5 mg 08/05/21 13:59 08/07/21 05:32 Oxycodone 5 Mg Tablet PO 5 mg Q4HR PRN Administration Pain 5 to 7 Pantoprazole Sodium 40 mg 08/06/21 08:00 08/07/21 05:32 Pantoprazole 40 Mg Vial IVP 40 mg QDAC JANNETH Administration Sodium Chloride 10 ml 08/05/21 17:00 08/07/21 08:46 Sodium Chloride Flush 0.9% 10 Ml Syringe IVP 10 ml 0100,0900,1700 JANNETH Administration - Lab Result Fish Bone Diagrams: 08/07/21 05:58 08/07/21 05:58 - Additional Planning My Orders: My Active Orders 08/06/21 15:37 Transfuse RBCs Leukoreduced [RC] .ONCE 08/07/21 00:01 NPO except Meds [DIET] 08/07/21 07:31 Nebulizer/MDI Tx. [RC] QID Resp Teach Nebulizer/MDI [RC] .ONCE 08/07/21 07:32 Nebulizer/MDI Tx. [RC] QID Resp Teach Nebulizer/MDI [RC] .ONCE Ipratropium [Atrovent] 0.5 mg INH QID PRN 08/07/21 21:00 Heparin [Heparin Sodium (Porcine)] 5,000 unit SUBQ BID 08/08/21 05:00 BMP - BASIC METABOLIC PANEL [CHEM] DAILYLAB CBC - COMP BLD CT W/AUTO DIFF [HEME] DAILYLAB 08/09/21 05:00 BMP - BASIC METABOLIC PANEL [CHEM] DAILYLAB CBC - COMP BLD CT W/AUTO DIFF [HEME] DAILYLAB 08/10/21 05:00 BMP - BASIC METABOLIC PANEL [CHEM] DAILYLAB CBC - COMP BLD CT W/AUTO DIFF [HEME] DAILYLAB Subjective - Subjective Patient Reports: Resting Comfortably Objective Vital Signs: Vital Signs - 24 hr 08/06/21 08/06/21 08/06/21 16:11 16:28 19:50 Temperature 36.8 C 36.7 C 36.8 C Heart Rate 80 83 88 Heart Rate [ 80 Brachial] Respiratory 20 20 20 Rate Blood Pressure 124/59 L 125/75 120/64 Blood Pressure 124/59 L [Right Brachial artery] O2 Saturation 97 08/06/21 08/06/21 08/07/21 20:17 23:35 05:25 Temperature 36.8 C 36.9 C 36.7 C Heart Rate Heart Rate [ 84 81 90 Brachial] Respiratory 20 18 16 Rate Blood Pressure Blood Pressure 109/55 L 97/53 L 102/57 L [Right Brachial artery] O2 Saturation 93 95 95 08/07/21 08/07/21 08/07/21 07:45 08:45 12:29 Temperature 36.9 C 36.8 C Heart Rate 76 Heart Rate [ 76 75 Brachial] Respiratory 18 18 18 Rate Blood Pressure Blood Pressure 100/54 L 96/56 L [Right Brachial artery] O2 Saturation 95 96 Oxygen O2 Source Nasal cannula I&O (Last 24 Hrs): Intake and Output Totals x24h 08/05/21 08/06/21 08/07/21 23:59 23:59 23:59 Intake Total 240 2825 0 Output Total 40 600 400 Balance 200 2225 -400 General: Alert, Oriented x3, Cooperative, No acute distress HEENT: Atraumatic Neck: Supple Lymphatic: no adenopathy Neuro: Alert, Non Focal, Oriented Times 3 Cardiovascular: Regular rate, Normal S1, Normal S2 Respiratory: Chest non-tender, No respiratory distress Abdomen: Normal bowel sounds, Soft, No tenderness Extremities: Normal pulses - Results Results: Laboratory Results WBC 9.8 x10^3/uL (4.8-10.8) 08/07/21 05:58 RBC 2.91 10^6/uL (4.20-5.40) L 08/07/21 05:58 Hgb 8.4 g/dL (12.0-16.0) L 08/07/21 05:58 Hct 26.3 % (37.0-47.0) L 08/07/21 05:58 MCV 90.4 fL (81.0-99.0) 08/07/21 05:58 MCH 28.9 pg (27.0-31.0) 08/07/21 05:58 MCHC 31.9 g/dL (32.0-36.0) L 08/07/21 05:58 RDW 15.6 % (12.0-15.0) H 08/07/21 05:58 Plt Count 213 10^3/uL (130-450) 08/07/21 05:58 MPV 10.3 fL (7.9-10.8) 08/07/21 05:58 Reticulocyte % (Auto) 1.27 % (0.5-2.3) 08/05/21 11:08 Neut # (Auto) Not Reportable 08/07/21 05:58 Lymph # (Auto) Not Reportable 08/07/21 05:58 [place] # (Auto) Not Reportable 08/07/21 05:58 Eos # (Auto) Not Reportable 08/07/21 05:58 Baso # (Auto) Not Reportable 08/07/21 05:58 Absolute Nucleated RBC Not Reportable 08/07/21 05:58 Total Counted 100 08/07/21 05:58 Band Neuts % (Manual) 0 % (0-10) 08/07/21 05:58 Reactive Lymphs % (Man) 5 % 08/07/21 05:58 Abnorm Lymph % (Manual) 0 % 08/07/21 05:58 Myelocytes % 3 % (-0) H 08/07/21 05:58 Nucleated RBC % Not Reportable 08/07/21 05:58 Neutrophils # (Manual) 6.6 10^3/uL (1.5-6.6) 08/07/21 05:58 Lymphocytes # (Manual) 1.8 10^3/uL (1.5-3.5) 08/07/21 05:58 Monocytes # (Manual) 1.0 10^3/uL (0.0-1.0) 08/07/21 05:58 Eosinophils # (Manual) 0.2 10^3/uL (0-0.7) 08/07/21 05:58 Basophils # (Manual) 0.0 10^3/uL (0-0.1) 08/07/21 05:58 Differential Comment MANUAL DIFFERENTIAL 08/07/21 05:58 WBC Morphology NORMAL APPEARANCE (NORMAL) 08/05/21 11:08 Platelet Estimate NORMAL (130-450,000) (NORMAL) 08/05/21 11:08 Platelet Morphology NORMAL APPEARANCE (NORMAL) 08/05/21 11:08 RBC Morph Micro Appear 3+ ANISOCYTOSIS (NORMAL) 08/07/21 05:58 Absolute Retic 0.042 10^6/uL (0.020-0.110) 08/05/21 11:08 INR (Fingerstick) 1.1 (0.8-1.2) 08/05/21 16:25 Sodium 136 mmol/L (135-145) 08/07/21 05:58 Potassium 4.0 mmol/L (3.5-5.0) 08/07/21 05:58 Chloride 105 mmol/L (101-111) 08/07/21 05:58 Carbon Dioxide 23 mmol/L (21-32) 08/07/21 05:58 Anion Gap 8.0 (6-13) 08/07/21 05:58 BUN 38 mg/dL (6-20) H 08/07/21 05:58 Creatinine 1.6 mg/dL (0.4-1.0) H 08/07/21 05:58 Estimated GFR (MDRD) 32 (>89) L 08/07/21 05:58 Glucose 105 mg/dL (70-100) H 08/07/21 05:58 Calcium 8.0 mg/dL (8.5-10.3) L 08/07/21 05:58 Iron 23 ug/dL (28-170) L 08/05/21 11:08 TIBC 321 ug/dL (250-450) 08/05/21 11:08 % Saturation 7 % (20-50) L 08/05/21 11:08 Transferrin 229 mg/dL (192-382) 08/05/21 11:08 Ferritin 68.1 ng/mL (11.0-306.8) 08/05/21 11:08 Total Bilirubin 0.5 mg/dL (0.2-1.0) 08/05/21 11:08 AST 22 IU/L (10-42) 08/05/21 11:08 ALT 17 IU/L (10-60) 08/05/21 11:08 Alkaline Phosphatase 97 IU/L (42-121) 08/05/21 11:08 Lactate Dehydrogenase 145 IU/L (91-225) 08/05/21 18:38 Total Protein 7.4 g/dL (6.7-8.2) 08/05/21 11:08 Albumin 4.1 g/dL (3.2-5.5) 08/05/21 11:08 Globulin 3.3 g/dL (2.1-4.2) 08/05/21 11:08 Albumin/Globulin Ratio 1.2 (1.0-2.2) 08/05/21 11:08 Lipase 39 U/L (22-51) 08/05/21 11:08 Vitamin B12 182 pg/mL (180-914) 08/05/21 11:08 Urine Color YELLOW 08/05/21 19:45 Urine Clarity CLEAR (CLEAR) 08/05/21 19:45 Urine pH 5.0 PH (5.0-7.5) 08/05/21 19:45 Ur Specific [place] >=1.030 (1.002-1.030) H 08/05/21 19:45 Urine Protein NEGATIVE mg/dL (NEGATIVE) 08/05/21 19:45 Urine Glucose (UA) NEGATIVE mg/dL (NEGATIVE) 08/05/21 19:45 Urine Ketones NEGATIVE mg/dL (NEGATIVE) 08/05/21 19:45 Urine Occult Blood NEGATIVE (NEGATIVE) 08/05/21 19:45 Urine Nitrite NEGATIVE (NEGATIVE) 08/05/21 19:45 Urine Bilirubin NEGATIVE (NEGATIVE) 08/05/21 19:45 Urine Urobilinogen 0.2 (NORMAL) E.U./dL (NORMAL) 08/05/21 19:45 Ur Leukocyte Esterase NEGATIVE (NEGATIVE) 08/05/21 19:45 Urine RBC None Seen /HPF (0-5) 08/05/21 19:45 Urine WBC 0-3 /HPF (0-5) 08/05/21 19:45 Ur Squamous Epith Cells FEW Squamous (<= Few) 08/05/21 19:45 Urine Bacteria None Seen /HPF (None Seen) 08/05/21 19:45 Urine Culture Comments NOT INDICATED 08/05/21 19:45 Nasal Adenovirus (PCR) NOT DETECTED 08/05/21 11:14 Nasal B. parapertussis DNA (PCR) NOT DETECTED 08/05/21 11:14 Nasal Coronavir 229E PCR NOT DETECTED 08/05/21 11:14 Nasal Coronavir HKU1 PCR NOT DETECTED 08/05/21 11:14 Nasal Coronavir NL63 PCR NOT DETECTED 08/05/21 11:14 Nasal Coronavir OC43 PCR NOT DETECTED 08/05/21 11:14 Nasal Enterovir/Rhinovir PCR NOT DETECTED 08/05/21 11:14 Nasal Influenza B PCR NOT DETECTED 08/05/21 11:14 Nasal Influenza A PCR NOT DETECTED 08/05/21 11:14 Nasal Parainfluen 1 PCR NOT DETECTED 08/05/21 11:14 Nasal Parainfluen 2 PCR NOT DETECTED 08/05/21 11:14 Nasal Parainfluen 3 PCR NOT DETECTED 08/05/21 11:14 Nasal Parainfluen 4 PCR NOT DETECTED 08/05/21 11:14 Nasal RSV (PCR) NOT DETECTED 08/05/21 11:14 Nasal B.pertussis DNA PCR NOT DETECTED 08/05/21 11:14 Nasal C.pneumoniae (PCR) NOT DETECTED 08/05/21 11:14 Russ Human Metapneumo PCR NOT DETECTED 08/05/21 11:14 Nasal M.pneumoniae (PCR) NOT DETECTED 08/05/21 11:14 Nasal SARS-CoV-2 (PCR) NOT DETECTED 08/05/21 11:14 Blood Type A NEGATIVE 08/06/21 08:00 Blood Type Recheck A NEGATIVE 08/06/21 09:32 Antibody Screen NEGATIVE 08/06/21 08:00 Crossmatch IS Only See Detail 08/06/21 08:00 ABX Reporting Has patient been on IV antibiotics over the past 48 hours?: No Current Medications - Current Medications Current Medications: Active Medications Acetaminophen (Acetaminophen 325 Mg Tablet) 650 mg PO Q4HR PRN PRN Reason: Pain 1 to 4 Last Admin: 08/07/21 08:44 Dose: 650 mg Documented by: Atorvastatin Calcium (Atorvastatin 40 Mg Tablet) 40 mg PO QPM [facility] Last Admin: 08/06/21 20:20 Dose: 40 mg Documented by: Diltiazem HCl (Diltiazem Cd 120 Mg Capsule) 120 mg PO QPM [facility] Last Admin: 08/06/21 20:20 Dose: 120 mg Documented by: Duloxetine HCl (Duloxetine 30 Mg Capsule) 60 mg PO DAILY [facility] Last Admin: 08/07/21 08:45 Dose: 60 mg Documented by: Ferrous Gluconate (Ferrous Gluconate 324 Mg Tablet) 324 mg PO DAILYWM [facility] Last Admin: 08/07/21 08:45 Dose: 324 mg Documented by: Heparin Sodium (Porcine) (Heparin 5,000 Unit/Ml Vial) 5,000 unit SUBQ BID JANNETH Ipratropium [place] (Ipratropium 0.2 Mg/Ml Neb) 0.5 mg INH QID PRN PRN Reason: Shortness of Air/Wheezing Last Admin: 08/07/21 08:02 Dose: 0.5 mg Documented by: Levalbuterol HCl (Levalbuterol 1.25 Mg/3 Ml Neb) 1.25 mg INH Q4H PRN PRN Reason: Shortness of Air/Wheezing Last Admin: 08/07/21 08:02 Dose: 1.25 mg Documented by: Morphine Sulfate (Morphine 2 Mg/Ml Carpuject) 2 mg IVP Q2HR PRN PRN Reason: Pain 8 to 10 Ondansetron HCl (Ondansetron 4 Mg/2 Ml Vial) 4 mg IVP Q6HR PRN PRN Reason: Nausea / Vomiting Oxycodone HCl (Oxycodone 5 Mg Tablet) 5 mg PO Q4HR PRN PRN Reason: Pain 5 to 7 Last Admin: 08/07/21 05:32 Dose: 5 mg Documented by: Pantoprazole Sodium (Pantoprazole 40 Mg Vial) 40 mg IVP QDAC [facility] Last Admin: 08/07/21 05:32 Dose: 40 mg Documented by: Sodium Chloride (Sodium Chloride Flush 0.9% 10 Ml Syringe) 10 ml IVP PRN PRN PRN Reason: NEEDED PER PROVIDER ORDERS Sodium Chloride (Sodium Chloride Flush 0.9% 10 Ml Syringe) 10 ml IVP 0100,0900,1700 [facility] Last Admin: 08/07/21 08:46 Dose: 10 ml Documented by: Atorvastatin Calcium 40 mg PO DAILY 08/05/21 Diltiazem HCl [Diltiazem 12Hr ER] 120 mg PO QPM 08/05/21 Duloxetine HCl [Cymbalta] 60 mg PO DAILY 08/05/21 lisinopriL [Zestril] 5 mg PO DAILY 08/05/21 Multivitamin 1 tab PO DAILY 08/06/21 diphenhydrAMINE [Benadryl] 25 mg PO DAILY PRN 08/06/21
[2021-08-07] MEDS ORDERED: ceFAZolin 1 GM VIAL ONE (13:34)
[2021-08-07] MEDS ORDERED: BUPIVACAINE 0.25% PF 30 ML VIAL SUBQ ONE (13:39)
[2021-08-07] MEDS ORDERED: PHENYLEPHRINE 10 MG/ML VIAL ONE (13:45)
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
[2021-08-07] MEDS ORDERED: LACTATED RINGERS 1,000 ML IV ONE (14:37)
--- NOTE | 2021-08-07 14:48 | ANESTHESIA POST OP EVALUATION ---
Anesthesia Post Eval - Post Anesthesia Eval Vitals: Last Vital Signs Temp 37.1 C 08/07/21 14:40 Pulse 68 08/07/21 14:40 Resp 20 08/07/21 14:40 BP 108/68 08/07/21 14:40 Pulse Ox 97 08/07/21 14:40 CV Function Including HR & BP: Stable Pain Control: Satisfactory Nausea & Vomiting: Negative Mental Status: Baseline Respiratory Status: Airway Patent Hydration Status: Satisfactory Anesthesia Complications: None
[2021-08-07] MEDS ORDERED: METOCLOPRAMIDE 10 MG/2 ML VIAL IVP PRN (14:52)
[2021-08-07] MEDS ORDERED: HYDROmorphone 0.5 MG/0.5 ML SYRINGE IVP PRN (14:52)
[2021-08-07] MEDS ORDERED: ATROPINE ABBOJECT 1 MG/10 ML SYRINGE IVP PRN (14:52)
[2021-08-07] MEDS ORDERED: fentaNYL 100 MCG/2 ML VIAL IVP PRN (14:52)
[2021-08-07] MEDS ORDERED: ePHEDrine 50 MG/ML VIAL IVP PRN (14:52)
[2021-08-07] MEDS ORDERED: MORPHINE 2 MG/ML CARPUJECT IVP PRN (14:52)
[2021-08-07] MEDS ORDERED: ONDANSETRON 4 MG/2 ML VIAL IVP PRN (14:52)
[2021-08-07] MEDS ORDERED: NALOXONE 0.4 MG/ML VIAL IVP PRN (14:52)
[2021-08-07] MEDS ORDERED: LACTATED RINGERS 1,000 ML IV SCH (15:00)
[2021-08-07] MEDS ORDERED: ceFAZolin 2 GM in SODIUM CHLORIDE 0.9% 100ML 100 ML IV SCH (16:00)
--- NOTE | 2021-08-07 16:52 | XRAY Report ---
PROCEDURE: OR C-Arm Procedure INDICATIONS: ORIF RT HIP NAILING TECHNIQUE: Intraoperative fluoroscopic images. COMPARISON: X-ray hip 08/05/2021. FINDINGS: Intraoperative fluoroscopic images demonstrate pin navi fixation of the right hip. There is good anato grupo alignment. Fracture lucencies are again noted. IMPRESSION: Pain in right fixation of the right hip as above. Reviewed by: Mariana Michael MD on 08/07/2021 4:51 PM PST Approved by: Mariana Michael MD on 08/07/2021 4:51 PM PST Station ID: [id number]
[2021-08-07] MEDS ORDERED: lisinopriL 5 MG TABLET PO SCH (16:55)
[2021-08-07] MEDS: diltiaZEM CD 120 MG CAPSULE PO SCH (20:52)
[2021-08-07] MEDS: ATORVASTATIN 40 MG TABLET PO SCH (20:52)
[2021-08-07] MEDS ORDERED: HEPARIN 5,000 UNIT/ML VIAL SUBQ SCH (21:00)
[2021-08-08] MEDS: oxyCODONE 5 MG TABLET PO PRN ×3 (01:30→21:40)
[2021-08-08] MEDS: ACETAMINOPHEN 325 MG TABLET PO PRN ×3 (01:30→21:41)
[2021-08-08] MEDS: SODIUM CHLORIDE FLUSH 0.9% 10 ML SYRINGE IVP SCH ×3 (01:30→15:45)
[2021-08-08] MEDS ORDERED: ceFAZolin 2 GM in SODIUM CHLORIDE 0.9% 100ML 100 ML IV SCH (05:30)
[2021-08-08 05:39] LABS: BASOPHILS % (AUTO) 0.3 %; EOSINOPHILS # (AUTO) 0.2 10^3/uL (0.0-0.7); EOSINOPHILS % (AUTO) 2.8 %; HCT - HEMATOCRIT 24.6 % (37.0-47.0); LYMPHOCYTES # (AUTO) 1.2 10^3/uL (1.5-3.5); LYMPHOCYTES % (AUTO) 14.3 %; MEAN CORPUSCULAR HEMOGLOBIN 29.5 pg (27.0-31.0); MEAN CORPUSCULAR HGB CONC 32.5 g/dL (32.0-36.0); MEAN CORPUSCULAR VOLUME 90.8 fL (81.0-99.0); MEAN PLATELET VOLUME 10.5 fL (7.9-10.8); MONOCYTES # (AUTO) 1.3 10^3/uL (0.0-1.0); MONOCYTES % (AUTO) 14.7 %; NEUTROPHILS # (AUTO) 5.9 10^3/uL (1.5-6.6); NEUTROPHILS % (AUTO) 67.6 %; PLT - PLATELET COUNT 223 10^3/uL (130-450); RED BLOOD COUNT 2.71 10^6/uL (4.20-5.40); RED CELL DISTRIBUTION WIDTH 15.8 % (12.0-15.0); WHITE BLOOD COUNT 8.7 x10^3/uL (4.8-10.8)
[2021-08-08 05:49] LABS: CALCIUM 7.9 mg/dL (8.5-10.3); CREATININE 1.3 mg/dL (0.4-1.0); POTASSIUM 4.3 mmol/L (3.5-5.0)
[2021-08-08] MEDS: PANTOPRAZOLE 40 MG TABLET PO SCH (06:39)
[2021-08-08] MEDS: DULoxetine 30 MG CAPSULE PO SCH (08:56)
[2021-08-08] MEDS: FERROUS GLUCONATE 324 MG TABLET PO SCH (08:56)
[2021-08-08] MEDS: polyethylene glycoL 3350 17 GM PACKET PO SCH (08:56)
[2021-08-08] MEDS ORDERED: HEPARIN 5,000 UNIT/ML VIAL SUBQ SCH (09:00)
[2021-08-08] MEDS: CHOLECALCIFEROL 25 MCG TABLET PO SCH (10:04)
[2021-08-08] MEDS: ASPIRIN CHEW 81 MG TABLET PO SCH ×2 (10:05→21:41)
[2021-08-08] MEDS: CALCIUM CARBONATE CHEW 500 MG TABLET PO SCH ×2 (10:05→21:41)
--- NOTE | 2021-08-08 11:13 | PROVIDER PROGRESS NOTE ---
Subjective - General Admit Date: 08/05/21 Procedure Date: 08/07/21 Post Op Days: 1 Procedure Performed: Open reduction internal fixation intertrochanteric fracture right hip - Review of Systems Wound/Incisions: positive: Dressing dry and intact General: positive: Other (sleepy) Pulmonary: positive: No symptoms Cardiovascular: positive: No symptoms Gastrointestinal: positive: No symptoms - Other Other Information/Narrative: Her pain seems to be well controlled with medication. Her pain is less than it was prior to surgery to her right hip. Objective - Patient Data Vital Signs: Vital Signs x48h Temp Pulse Resp BP Pulse Ox 08/08/21 08:36 36.7 C 82 18 114/57 L 93 08/08/21 05:01 36.7 C 69 18 97/52 L 92 Weight: Weight 08/06/21 08/07/21 08/08/21 23:59 23:59 23:59 Weight (kg) 58 kg Intake & Output: Intake and Output Totals x24h 08/06/21 08/07/21 08/08/21 23:59 23:59 23:59 Intake Total 2825 500 350 Output Total 600 650 350 Balance 2225 -150 0 - Lab Results Lab Results: 08/08/21 05:11 08/08/21 05:11 Other Lab Results: Lab Results x24hrs 08/08/21 08/08/21 08/07/21 Range/Units 05:11 05:11 22:20 WBC 8.7 (4.8-10.8) x10^3/uL RBC 2.71 L (4.20-5.40) 10^6/uL Hgb 8.0 L Cancelled Hct 24.6 L Cancelled MCV 90.8 (81.0-99.0) fL MCH 29.5 (27.0-31.0) pg MCHC 32.5 (32.0-36.0) g/dL RDW 15.8 H (12.0-15.0) % Plt Count 223 (130-450) 10^3/uL MPV 10.5 (7.9-10.8) fL Neut # (Auto) 5.9 (1.5-6.6) 10^3/uL Lymph # (Auto) 1.2 L (1.5-3.5) 10^3/uL [place] # (Auto) 1.3 H (0.0-1.0) 10^3/uL Eos # (Auto) 0.2 (0.0-0.7) 10^3/uL Baso # (Auto) 0.0 (0.0-0.1) 10^3/uL Absolute Nucleated RBC 0.00 x10^3/uL Nucleated RBC % 0.0 /100WBC Sodium 136 (135-145) mmol/L Potassium 4.3 (3.5-5.0) mmol/L Chloride 104 (101-111) mmol/L Carbon Dioxide 24 (21-32) mmol/L Anion Gap 8.0 (6-13) BUN 30 H (6-20) mg/dL Creatinine 1.3 H (0.4-1.0) mg/dL Estimated GFR (MDRD) 40 L (>89) Glucose 106 H (70-100) mg/dL Calcium 7.9 L (8.5-10.3) mg/dL - Current Medications Current Medications: Current Medications Generic Name Dose Route Start [facility] Reason Stop Dose Admin Acetaminophen 650 mg 08/05/21 13:59 08/08/21 01:30 Acetaminophen 325 Mg Tablet PO 650 mg Q4HR PRN Administration Pain 1 to 4 Aspirin 81 mg 08/08/21 09:00 08/08/21 10:05 Aspirin Chew 81 Mg Tablet PO 81 mg BID JANNETH Administration Atorvastatin Calcium 40 mg 08/05/21 21:00 08/07/21 20:52 Atorvastatin 40 Mg Tablet PO 40 mg QPM JANNETH Administration Calcium Carbonate/Glycine 500 mg 08/08/21 09:00 08/08/21 10:05 Calcium Carbonate Chew 500 Mg Tablet PO 500 mg BID JANNETH Administration Cholecalciferol 50 mcg 08/08/21 09:00 08/08/21 10:04 Cholecalciferol 25 Mcg Tablet PO 50 mcg DAILY JANNETH Administration Diltiazem HCl 120 mg 08/05/21 21:00 08/07/21 20:52 Diltiazem Cd 120 Mg Capsule PO 120 mg QPM JANNETH Administration Duloxetine HCl 60 mg 08/06/21 09:00 08/08/21 08:56 Duloxetine 30 Mg Capsule PO 60 mg DAILY JANNETH Administration Ferrous Gluconate 324 mg 08/06/21 08:00 08/08/21 08:56 Ferrous Gluconate 324 Mg Tablet PO 324 mg DAILYWM JANNETH Administration Ipratropium [place] 0.5 mg 08/07/21 07:32 08/07/21 08:02 Ipratropium 0.2 Mg/Ml Neb INH 0.5 mg QID PRN Administration Shortness of Air/Wheezing Levalbuterol HCl 1.25 mg 08/06/21 08:28 08/07/21 08:02 Levalbuterol 1.25 Mg/3 Ml Neb INH 1.25 mg Q4H PRN Administration Shortness of Air/Wheezing Morphine Sulfate 2 mg 08/05/21 13:59 08/07/21 18:20 Morphine 2 Mg/Ml Carpuject IVP 2 mg Q2HR PRN Administration Pain 8 to 10 Oxycodone HCl 5 mg 08/05/21 13:59 08/08/21 06:39 Oxycodone 5 Mg Tablet PO 5 mg Q4HR PRN Administration Pain 5 to 7 Pantoprazole Sodium 40 mg 08/08/21 07:00 08/08/21 06:39 Pantoprazole 40 Mg Tablet PO 40 mg QDAC JANNETH Administration Polyethylene Glycol 17 gm 08/08/21 09:00 08/08/21 08:56 Polyethylene Glycol 3350 17 Gm Packet PO 17 gm DAILY JANNETH Administration Sodium Chloride 10 ml 08/05/21 17:00 08/08/21 08:57 Sodium Chloride Flush 0.9% 10 Ml Syringe IVP 10 ml 0100,0900,1700 JANNETH Administration - Physical Exam Wound/Incisions: positive: Dressing dry and intact General Appearance: positive: No acute distress, Alert, Lethargic Neurologic/Psychiatric: positive: Oriented x3, Motor nml, Sensation nml Comments/Other: She is alert and oriented, comfortably sitting in bed. She does not report excessive pain and less pain then she had prior to surgery with regard to her right hip. There is no clinical deformity to right leg. There is some swelling about the right thigh but no ecchymosis or sign of obvious hematoma. Her neurovascular is intact to right lower extremity. Impression/Plan - Problem List Problem List: 1. Status post open reduction internal fixation intertrochanteric fracture r ight hip. The plan is to mobilize the patient, physical and occupational therapy have been ordered. She should be on decreasing use of narcotics to control pain. Her hemoglobin is stable, not symptomatic. She needs to be on deep venous thrombosis prophylaxis; 81 mg of aspirin twice daily can be helpful or other anticoagulation. She can bear weight as tolerated on right leg with walker. She has a subcuticular incision closure to her right hip and thigh, therefore, does not need suture removal. She needs a follow-up to the orthopedic clinic within 6 weeks.
[2021-08-08] MEDS ORDERED: MORPHINE 2 MG/ML CARPUJECT IVP PRN ×2 (11:30)
--- NOTE | 2021-08-08 11:31 | PROVIDER PROGRESS NOTE ---
Assessment/Plan - Problem List (1) Hip fracture Qualifiers: Encounter type: initial encounter Fracture type: closed Laterality: right Qualified Code(s): S72.001A - Fracture of unspecified part of neck of right femur, initial encounter for closed fracture Assessment/Plan: 08/08 day 1 s/p right hip repair. pt feel tired after she had opiates pain meds in the morning. will reduce opiates meds dosage since pt has CKD as well. continue PT/OT, Aspirin 81mg bid for DVT prophylaxis, Continue follow-up with orthopedic surgeon's recommendations. 08/07 pt is on the surgery now. I called pt's on today morning again and left message, but I did not receive phone call back. pt was alert and oriented plus 4, she verbally understood all risks from surgery, she confirmed she want to have surgery. we will followup with s/p care for pt. 08/06 transportation logistics internship concern pt's hx of AAA. I did call [place] [facility] [place], no response call back. I called [place], finally orthopedics in [place] can not take any more pt. CT of abdomen/pelvis show AAA is stable. Pt is alert and oriented, she is clearly and verbally state she understood all risks, and she want to continue to have her right hip repair at our hospital. After discussed with all team, we all agreed to have surgery for pt on tomorrow. NPO on midnight, plan to have surgery on tomorrow morning. Patient had a mechanical fall at right side, she denies any loss of consciousness. X-ray review right hip fracture. Surgeon was consulted, Plan to have surgery on tomorrow. Pain control, consult with surgeon, NPO After midnight. (2) Encounter for preoperative assessment for noncoronary cardiac surgery Conclusion/Plan: 08/07 pt is on the surgery now. As we discussed on yesterday, our orthopedics surgeon and chief surgeon both believe we should continue surgery for pt at our hospital with low risk. we will followup with s/p care for pt 08/06 pt had EKG, which show SR. EHCO show normal EF, no evidence for aortic stenosis, moderate elevated abnormal right heart pressure, RVSP 64mmHG. Patient denies any cardiac history. he denies chest pain and Loss of consciousness at this time. Patient had a echo done at 10/2019 Which show unremarkable. we will order EKG, pt has hx of Arrhythmia, and PT/INR. According to revised cardiac risk index (Yared criteria), Estimated risk of adverse outcome with noncardiac surgery is low risk, and 0.9% for Estimated rate of myocardial infarction, pulmonary edema, ventricular fibrillation, cardiac arrest or complete heart block. (3)anemia 1119, hemoglobin 8.0, pt seems Asymptomatic, We will continue H&H to monitor, continue Iron Supplement 08/07 HGB is 8.4 after pt had one unit of blood, we continue H&H for pt after surgery. 08/06 Patient's HGB drop to 7 from 9.5 on yesterday. Patient has history of chronic anemia. Consult with GI surgeon. pt's occult stool test is negative. Start with Protonix per GI surgeon suggestion. It is likely caused by hemodilution and patient developed hematoma. Repeat CBC show patient had h emoglobin 7.9. Per Orthopedic surgeon's suggestion, we will transfusion 1 units of blood for patient. Continue H&H (4)hematoma 08-08 pt still present mild to moderate swelling at upper of right lower extremity. pt had intact neurovascular examination at her distal right Lower extremity. Discussed patient's hematoma condition with Orthopedic surgeon, surgeon advised it is common when pt had fall and right hip injury, continue closely monitor pt and check Patient's H&H, Continue PT and OT, Start with baby aspirin twice daily for DVT prophylaxis. 08/07 pt is on the surgery for hip repair, orthopedics surgeon was aware of pt's hematoma. will continue s/p care for pt 08/06 CT of abdomen and pelvis concern pt developed intramuscular hematoma at right abductor josh muscle from right hip injury, pt also develop lower BP at the time. After pt had IVF, her BP return to normal arrange. pt has no acute distress. We will continue CBC monitor patient, we will transfusion 1 unit blood. We will continue to consult with orthopedic surgeon (5) CKD (chronic kidney disease) stage 4, GFR 15-29 ml/min Conclusion/Plan: 1119, improved, creatinine is 1.3. We will hold intravenous IV fluids, Continue medical laboratory assistant 08/07 creatininie is 1.6, improved. precaution of fluid overloaded as well. continue lab monitor Patient's creatinine is 2.3 on today, Patient has a history of CKD, we will order gently IVF for pt, lab monitor, avoid nephrotoxic agents. pt May follow-up with nephrology as outpatient (6) AAA (abdominal aortic aneurysm) Conclusion/Plan: 1119, pt is stable, H&H is stable, denies no abdominal pain, Continue close monitor with vital signs and laboratory, strongly advised patient follow-up with vascular surgeon as outpatient 08/06 Patient denies abdominal pain, Patient has no acute distress, her BP was slight lower at organ pipe maker metal, then become stable. CT of abdomen and pelvis show no acute rupture, AAA size is slight smaller than US monitor shown on four months ago. As we discussed at above, all team agreed to have surgery on tomorrow for pt. pt understood the risk and want to continue the surgery for her. pt has hx of AAA. pt was unknown her hx of AAA. in 03/2021 US of he abdomen showed 4.8X5.9 cm size with 8.2cm length at the distal abdominal aorta. draw p icture and explained to pt what that means about AAA, explained the risk of this non-cardiac surgery with this size of AAA. pt verbally state she understood, she insisted "whatever risk has, I want to have surgery." Discussed pt's this conditions with orthopedics surgeon as well. continue control of pt's BP and resume home statin. tele and vital monitor Qualifiers: Presence of rupture: without rupture Qualified Code(s): I71.4 - Abdominal aortic aneurysm, without rupture (7) HTN (hypertension) Conclusion/Plan: Stable, we will resume patient home lisinopril and Cardizem (8) HLD (hyperlipidemia) Conclusion/Plan: Resume home statin (9) Arrhythmia Conclusion/Plan: pt has hx of arrhythmia. pt denies chest pain or Palpitations. We will order EKG, Continue gambling monitor, resume home Cardizem. (4) AAA (abdominal aortic aneurysm) Qualifiers: Presence of rupture: without rupture Qualified Code(s): I71.4 - Abdominal aortic aneurysm, without rupture - Current Meds Current Meds: Current Medications Generic Name Dose Route Start Last Admin Trade Name Freq PRN Reason Stop Dose Admin Acetaminophen 650 mg 08/05/21 13:59 08/08/21 01:30 Acetaminophen 325 Mg Tablet PO 650 mg Q4HR PRN Administration Pain 1 to 4 Aspirin 81 mg 08/08/21 09:00 08/08/21 10:05 Aspirin Chew 81 Mg Tablet PO 81 mg BID JANNETH Administration Atorvastatin Calcium 40 mg 08/05/21 21:00 08/07/21 20:52 Atorvastatin 40 Mg Tablet PO 40 mg QPM JANNETH Administration Calcium Carbonate/Glycine 500 mg 08/08/21 09:00 08/08/21 10:05 Calcium Carbonate Chew 500 Mg Tablet PO 500 mg BID JANNETH Administration Cholecalciferol 50 mcg 08/08/21 09:00 08/08/21 10:04 Cholecalciferol 25 Mcg Tablet PO 50 mcg DAILY JANNETH Administration Diltiazem HCl 120 mg 08/05/21 21:00 08/07/21 20:52 Diltiazem Cd 120 Mg Capsule PO 120 mg QPM JANNETH Administration Duloxetine HCl 60 mg 08/06/21 09:00 08/08/21 08:56 Duloxetine 30 Mg Capsule PO 60 mg DAILY JANNETH Administration Ferrous Gluconate 324 mg 08/06/21 08:00 08/08/21 08:56 Ferrous Gluconate 324 Mg Tablet PO 324 mg DAILYWM JANNETH Administration Ipratropium [place] 0.5 mg 08/07/21 07:32 08/07/21 08:02 Ipratropium 0.2 Mg/Ml Neb INH 0.5 mg QID PRN Administration Shortness of Air/Wheezing Levalbuterol HCl 1.25 mg 08/06/21 08:28 08/07/21 08:02 Levalbuterol 1.25 Mg/3 Ml Neb INH 1.25 mg Q4H PRN Administration Shortness of Air/Wheezing Morphine Sulfate 2 mg 08/05/21 13:59 08/07/21 18:20 Morphine 2 Mg/Ml Carpuject IVP 2 mg Q2HR PRN Administration Pain 8 to 10 Oxycodone HCl 5 mg 08/05/21 13:59 08/08/21 06:39 Oxycodone 5 Mg Tablet PO 5 mg Q4HR PRN Administration Pain 5 to 7 Pantoprazole Sodium 40 mg 08/08/21 07:00 08/08/21 06:39 Pantoprazole 40 Mg Tablet PO 40 mg QDAC JANNETH Administration Polyethylene Glycol 17 gm 08/08/21 09:00 08/08/21 08:56 Polyethylene Glycol 3350 17 Gm Packet PO 17 gm DAILY JANNETH Administration Sodium Chloride 10 ml 08/05/21 17:00 08/08/21 08:57 Sodium Chloride Flush 0.9% 10 Ml Syringe IVP 10 ml 0100,0900,1700 [facility] Administration - Lab Result Fish Bone Diagrams: 08/08/21 05:11 08/08/21 05:11 - Additional Planning My Orders: My Active Orders 08/08/21 Breakfast Soft (Low Fiber) Diet [DIET] 08/08/21 07:00 Pantoprazole [Protonix] 40 mg PO QDAC 08/08/21 09:00 Aspirin Chewable [St Magen Aspirin] 81 mg PO BID Calcium Carbonate [Tums] 500 mg PO BID Cholecalciferol [Vitamin D3] 50 mcg PO DAILY polyethylene glycoL 3350 [Miralax] 17 gm PO DAILY 08/08/21 19:00 H&H [HEMOGLOBIN AND HEMATOCRIT] [HEME] Timed 08/09/21 05:00 BMP - BASIC METABOLIC PANEL [CHEM] DAILYLAB CBC - COMP BLD CT W/AUTO DIFF [HEME] DAILYLAB 08/10/21 05:00 BMP - BASIC METABOLIC PANEL [CHEM] DAILYLAB CBC - COMP BLD CT W/AUTO DIFF [HEME] DAILYLAB Subjective - Subjective Patient Reports: Resting Comfortably Objective Vital Signs: Vital Signs - 24 hr 08/07/21 08/07/21 08/07/21 12:29 14:32 14:35 Temperature 36.8 C 37.1 C 37.1 C Heart Rate 72 69 Heart Rate [ 75 Brachial] Respiratory 18 20 17 Rate Blood Pressure 109/49 L 106/59 L Blood Pressure 96/56 L [Right Brachial artery] O2 Saturation 96 100 98 08/07/21 08/07/21 08/07/21 14:40 14:45 14:55 Temperature 37.1 C 37.1 C 37.0 C Heart Rate 68 68 73 Heart Rate [ Brachial] Respiratory 20 20 20 Rate Blood Pressure 108/68 106/60 107/54 L Blood Pressure [Right Brachial artery] O2 Saturation 97 95 9 L 08/07/21 08/07/21 08/07/21 15:05 15:16 15:35 Temperature 371 C H 37.0 C 35.5 C L Heart Rate 68 65 Heart Rate [ 55 L Brachial] Respiratory 20 18 15 Rate Blood Pressure 120/54 L 123/55 L Blood Pressure 133/68 H [Right Brachial artery] O2 Saturation 99 99 94 11/08/07/21 08/07/21 16:00 16:44 18:44 Temperature 36.2 C L 36.5 C Heart Rate Heart Rate [ 74 80 79 Brachial] Respiratory 16 16 20 Rate Blood Pressure Blood Pressure 129/72 131/61 H 113/56 L [Right Brachial artery] O2 Saturation 92 96 95 08/07/21 08/08/21 08/08/21 20:49 00:16 05:01 Temperature 36.7 C 36.7 C 36.7 C Heart Rate Heart Rate [ 91 86 69 Brachial] Respiratory 21 19 18 Rate Blood Pressure Blood Pressure 105/52 L 97/63 97/52 L [Right Brachial artery] O2 Saturation 95 91 L 92 08/08/21 08:36 Temperature 36.7 C Heart Rate Heart Rate [ 82 Brachial] Respiratory 18 Rate Blood Pressure Blood Pressure 114/57 L [Right Brachial artery] O2 Saturation 93 Oxygen O2 Source Nasal cannula I&O (Last 24 Hrs): Intake and Output Totals x24h 08/06/21 08/07/21 08/08/21 23:59 23:59 23:59 Intake Total 2825 500 350 Output Total 600 650 350 Balance 2225 -150 0 General: Alert, Oriented x3, Cooperative, No acute distress HEENT: Atraumatic Neck: Supple Lymphatic: no adenopathy Neuro: Alert, Non Focal, Oriented Times 3 Cardiovascular: Regular rate, Normal S1, Normal S2 Respiratory: Chest non-tender, No respiratory distress Abdomen: Normal bowel sounds, Soft, No tenderness Extremities: Normal pulses - Results Results: Laboratory Results WBC 8.7 x10^3/uL (4.8-10.8) 08/08/21 05:11 RBC 2.71 10^6/uL (4.20-5.40) L 08/08/21 05:11 Hgb 8.0 g/dL (12.0-16.0) L 08/08/21 05:11 Hct 24.6 % (37.0-47.0) L 08/08/21 05:11 MCV 90.8 fL (81.0-99.0) 08/08/21 05:11 MCH 29.5 pg (27.0-31.0) 08/08/21 05:11 MCHC 32.5 g/dL (32.0-36.0) 08/08/21 05:11 RDW 15.8 % (12.0-15.0) H 08/08/21 05:11 Plt Count 223 10^3/uL (130-450) 08/08/21 05:11 MPV 10.5 fL (7.9-10.8) 08/08/21 05:11 Reticulocyte % (Auto) 1.27 % (0.5-2.3) 08/05/21 11:08 Neut # (Auto) 5.9 10^3/uL (1.5-6.6) 08/08/21 05:11 Lymph # (Auto) 1.2 10^3/uL (1.5-3.5) L 08/08/21 05:11 Barry # (Auto) 1.3 10^3/uL (0.0-1.0) H 08/08/21 05:11 Eos # (Auto) 0.2 10^3/uL (0.0-0.7) 08/08/21 05:11 Baso # (Auto) 0.0 10^3/uL (0.0-0.1) 08/08/21 05:11 Absolute Nucleated RBC 0.00 x10^3/uL 08/08/21 05:11 Total Counted 100 08/07/21 05:58 Band Neuts % (Manual) 0 % (0-10) 08/07/21 05:58 Reactive Lymphs % (Man) 5 % 08/07/21 05:58 Abnorm Lymph % (Manual) 0 % 08/07/21 05:58 Myelocytes % 3 % (-0) H 08/07/21 05:58 Nucleated RBC % 0.0 /100WBC 08/08/21 05:11 Neutrophils # (Manual) 6.6 10^3/uL (1.5-6.6) 08/07/21 05:58 Lymphocytes # (Manual) 1.8 10^3/uL (1.5-3.5) 08/07/21 05:58 Monocytes # (Manual) 1.0 10^3/uL (0.0-1.0) 08/07/21 05:58 Eosinophils # (Manual) 0.2 10^3/uL (0-0.7) 08/07/21 05:58 Basophils # (Manual) 0.0 10^3/uL (0-0.1) 08/07/21 05:58 Differential Comment MANUAL DIFFERENTIAL 08/07/21 05:58 WBC Morphology NORMAL APPEARANCE (NORMAL) 08/05/21 11:08 Platelet Estimate NORMAL (130-450,000) (NORMAL) 08/05/21 11:08 Platelet Morphology NORMAL APPEARANCE (NORMAL) 08/05/21 11:08 RBC Morph Micro Appear 3+ ANISOCYTOSIS (NORMAL) 08/07/21 05:58 Absolute Retic 0.042 10^6/uL (0.020-0.110) 08/05/21 11:08 INR (Fingerstick) 1.1 (0.8-1.2) 08/05/21 16:25 Sodium 136 mmol/L (135-145) 08/08/21 05:11 Potassium 4.3 mmol/L (3.5-5.0) 08/08/21 05:11 Chloride 104 mmol/L (101-111) 08/08/21 05:11 Carbon Dioxide 24 mmol/L (21-32) 08/08/21 05:11 Anion Gap 8.0 (6-13) 08/08/21 05:11 BUN 30 mg/dL (6-20) H 08/08/21 05:11 Creatinine 1.3 mg/dL (0.4-1.0) H 08/08/21 05:11 Estimated GFR (MDRD) 40 (>89) L 08/08/21 05:11 Glucose 106 mg/dL (70-100) H 08/08/21 05:11 Calcium 7.9 mg/dL (8.5-10.3) L 08/08/21 05:11 Iron 23 ug/dL (28-170) L 08/05/21 11:08 TIBC 321 ug/dL (250-450) 08/05/21 11:08 % Saturation 7 % (20-50) L 08/05/21 11:08 Transferrin 229 mg/dL (192-382) 08/05/21 11:08 Ferritin 68.1 ng/mL (11.0-306.8) 08/05/21 11:08 Total Bilirubin 0.5 mg/dL (0.2-1.0) 08/05/21 11:08 AST 22 IU/L (10-42) 08/05/21 11:08 ALT 17 IU/L (10-60) 08/05/21 11:08 Alkaline Phosphatase 97 IU/L (42-121) 08/05/21 11:08 Lactate Dehydrogenase 145 IU/L (91-225) 08/05/21 18:38 Total Protein 7.4 g/dL (6.7-8.2) 08/05/21 11:08 Albumin 4.1 g/dL (3.2-5.5) 08/05/21 11:08 Globulin 3.3 g/dL (2.1-4.2) 08/05/21 11:08 Albumin/Globulin Ratio 1.2 (1.0-2.2) 08/05/21 11:08 Lipase 39 U/L (22-51) 08/05/21 11:08 Vitamin B12 182 pg/mL (180-914) 08/05/21 11:08 Urine Color YELLOW 08/05/21 19:45 Urine Clarity CLEAR (CLEAR) 08/05/21 19:45 Urine pH 5.0 PH (5.0-7.5) 08/05/21 19:45 Ur Specific [place] >=1.030 (1.002-1.030) H 08/05/21 19:45 Urine Protein NEGATIVE mg/dL (NEGATIVE) 08/05/21 19:45 Urine Glucose (UA) NEGATIVE mg/dL (NEGATIVE) 08/05/21 19:45 Urine Ketones NEGATIVE mg/dL (NEGATIVE) 08/05/21 19:45 Urine Occult Blood NEGATIVE (NEGATIVE) 08/05/21 19:45 Urine Nitrite NEGATIVE (NEGATIVE) 08/05/21 19:45 Urine Bilirubin NEGATIVE (NEGATIVE) 08/05/21 19:45 Urine Urobilinogen 0.2 (NORMAL) E.U./dL (NORMAL) 08/05/21 19:45 Ur Leukocyte Esterase NEGATIVE (NEGATIVE) 08/05/21 19:45 Urine RBC None Seen /HPF (0-5) 08/05/21 19:45 Urine WBC 0-3 /HPF (0-5) 08/05/21 19:45 Ur Squamous Epith Cells FEW Squamous (<= Few) 08/05/21 19:45 Urine Bacteria None Seen /HPF (None Seen) 08/05/21 19:45 Urine Culture Comments NOT INDICATED 08/05/21 19:45 Nasal Adenovirus (PCR) NOT DETECTED 08/05/21 11:14 Nasal B. parapertussis DNA (PCR) NOT DETECTED 08/05/21 11:14 Nasal Coronavir 229E PCR NOT DETECTED 08/05/21 11:14 Nasal Coronavir HKU1 PCR NOT DETECTED 08/05/21 11:14 Nasal Coronavir NL63 PCR NOT DETECTED 08/05/21 11:14 Nasal Coronavir OC43 PCR NOT DETECTED 08/05/21 11:14 Nasal Enterovir/Rhinovir PCR NOT DETECTED 08/05/21 11:14 Nasal Influenza B PCR NOT DETECTED 08/05/21 11:14 Nasal Influenza A PCR NOT DETECTED 08/05/21 11:14 Nasal Parainfluen 1 PCR NOT DETECTED 08/05/21 11:14 Nasal Parainfluen 2 PCR NOT DETECTED 08/05/21 11:14 Nasal Parainfluen 3 PCR NOT DETECTED 08/05/21 11:14 Nasal Parainfluen 4 PCR NOT DETECTED 08/05/21 11:14 Nasal RSV (PCR) NOT DETECTED 08/05/21 11:14 Nasal B.pertussis DNA PCR NOT DETECTED 08/05/21 11:14 Nasal C.pneumoniae (PCR) NOT DETECTED 08/05/21 11:14 Russ Human Metapneumo PCR NOT DETECTED 08/05/21 11:14 Nasal M.pneumoniae (PCR) NOT DETECTED 08/05/21 11:14 Nasal SARS-CoV-2 (PCR) NOT DETECTED 08/05/21 11:14 Blood Type A NEGATIVE 08/06/21 08:00 Blood Type Recheck A NEGATIVE 08/06/21 09:32 Antibody Screen NEGATIVE 08/06/21 08:00 Crossmatch IS Only See Detail 08/06/21 08:00 ABX Reporting Has patient been on IV antibiotics over the past 48 hours?: No Current Medications - Current Medications Current Medications: Active Medications Acetaminophen (Acetaminophen 325 Mg Tablet) 650 mg PO Q4HR PRN PRN Reason: Pain 1 to 4 Last Admin: 08/08/21 01:30 Dose: 650 mg Documented by: Aspirin (Aspirin Chew 81 Mg Tablet) 81 mg PO BID [facility] Last Admin: 08/08/21 10:05 Dose: 81 mg Documented by: Atorvastatin Calcium (Atorvastatin 40 Mg Tablet) 40 mg PO QPM [facility] Last Admin: 08/07/21 20:52 Dose: 40 mg Documented by: Calcium Carbonate/Glycine (Calcium Carbonate Chew 500 Mg Tablet) 500 mg PO BID [facility] Last Admin: 08/08/21 10:05 Dose: 500 mg Documented by: Cholecalciferol (Cholecalciferol 25 Mcg Tablet) 50 mcg PO DAILY [facility] Last Admin: 08/08/21 10:04 Dose: 50 mcg Documented by: Diltiazem HCl (Diltiazem Cd 120 Mg Capsule) 120 mg PO QPM [facility] Last Admin: 08/07/21 20:52 Dose: 120 mg Documented by: Duloxetine HCl (Duloxetine 30 Mg Capsule) 60 mg PO DAILY [facility] Last Admin: 08/08/21 08:56 Dose: 60 mg Documented by: Ferrous Gluconate (Ferrous Gluconate 324 Mg Tablet) 324 mg PO DAILYWM [facility] Last Admin: 08/08/21 08:56 Dose: 324 mg Documented by: Ipratropium [place] (Ipratropium 0.2 Mg/Ml Neb) 0.5 mg INH QID PRN PRN Reason: Shortness of Air/Wheezing Last Admin: 08/07/21 08:02 Dose: 0.5 mg Documented by: Levalbuterol HCl (Levalbuterol 1.25 Mg/3 Ml Neb) 1.25 mg INH Q4H PRN PRN Reason: Shortness of Air/Wheezing Last Admin: 08/07/21 08:02 Dose: 1.25 mg Documented by: Morphine Sulfate (Morphine 2 Mg/Ml Carpuject) 1 mg IVP Q4HR PRN PRN Reason: Pain 8 to 10 Ondansetron HCl (Ondansetron 4 Mg/2 Ml Vial) 4 mg IVP Q6HR PRN PRN Reason: Nausea / Vomiting Oxycodone HCl (Oxycodone 5 Mg Tablet) 2.5 mg PO Q4HR PRN PRN Reason: Pain 5 to 7 Pantoprazole Sodium (Pantoprazole 40 Mg Tablet) 40 mg PO QDAC [facility] Last Admin: 08/08/21 06:39 Dose: 40 mg Documented by: Polyethylene Glycol (Polyethylene Glycol 3350 17 Gm Packet) 17 gm PO DAILY [facility] Last Admin: 08/08/21 08:56 Dose: 17 gm Documented by: Sodium Chloride (Sodium Chloride Flush 0.9% 10 Ml Syringe) 10 ml IVP PRN PRN PRN Reason: NEEDED PER PROVIDER ORDERS Sodium Chloride (Sodium Chloride Flush 0.9% 10 Ml Syringe) 10 ml IVP 0100,0900,1700 [facility] Last Admin: 08/08/21 08:57 Dose: 10 ml Documented by: Atorvastatin Calcium 40 mg PO DAILY 08/05/21 Diltiazem HCl [Diltiazem 12Hr ER] 120 mg PO QPM 08/05/21 Duloxetine HCl [Cymbalta] 60 mg PO DAILY 08/05/21 lisinopriL [Zestril] 5 mg PO DAILY 08/05/21 Multivitamin 1 tab PO DAILY 08/06/21 diphenhydrAMINE [Benadryl] 25 mg PO DAILY PRN 08/06/21
[2021-08-08 19:12] LABS: HCT - HEMATOCRIT 25.6 % (37.0-47.0); HGB - HEMOGLOBIN 8.3 g/dL (12.0-16.0)
[2021-08-08] MEDS: ATORVASTATIN 40 MG TABLET PO SCH (21:41)
[2021-08-08] MEDS: diltiaZEM CD 120 MG CAPSULE PO SCH (21:41)
[2021-08-09] MEDS: SODIUM CHLORIDE FLUSH 0.9% 10 ML SYRINGE IVP SCH ×4 (00:05→23:50)
[2021-08-09] MEDS: PANTOPRAZOLE 40 MG TABLET PO SCH (05:36)
[2021-08-09] MEDS: ACETAMINOPHEN 325 MG TABLET PO PRN ×3 (05:45→23:50)
[2021-08-09] MEDS: oxyCODONE 5 MG TABLET PO PRN ×3 (05:46→23:50)
[2021-08-09 06:33] LABS: BASOPHILS # (AUTO) 0.1 10^3/uL (0.0-0.1); BASOPHILS % (AUTO) 0.5 %; EOSINOPHILS # (AUTO) 0.5 10^3/uL (0.0-0.7); EOSINOPHILS % (AUTO) 4.7 %; LYMPHOCYTES # (AUTO) 1.2 10^3/uL (1.5-3.5); LYMPHOCYTES % (AUTO) 12.4 %; MEAN CORPUSCULAR HEMOGLOBIN 28.8 pg (27.0-31.0); MEAN CORPUSCULAR VOLUME 89.9 fL (81.0-99.0); MEAN PLATELET VOLUME 10.4 fL (7.9-10.8); MONOCYTES # (AUTO) 1.4 10^3/uL (0.0-1.0); MONOCYTES % (AUTO) 13.8 %; NEUTROPHILS # (AUTO) 6.7 10^3/uL (1.5-6.6); PLT - PLATELET COUNT 288 10^3/uL (130-450); RED BLOOD COUNT 2.78 10^6/uL (4.20-5.40); RED CELL DISTRIBUTION WIDTH 15.7 % (12.0-15.0); WHITE BLOOD COUNT 9.8 x10^3/uL (4.8-10.8)
[2021-08-09 06:41] LABS: CREATININE 1.3 mg/dL (0.4-1.0)
--- NOTE | 2021-08-09 07:35 | PROVIDER PROGRESS NOTE ---
Assessment/Plan - Problem List (1) Hip fracture Qualifiers: Encounter type: initial encounter Fracture type: closed Laterality: right Qualified Code(s): S72.001A - Fracture of unspecified part of neck of right femur, initial encounter for closed fracture Assessment/Plan: Right hip fracture Status post surgery postop day #2. PT/OT working with patient. Pain management as needed. Social work to facilitate the process of placement in a rehab facility Orthopedic surgery following (2) Hematoma Assessment/Plan: Intramuscularly in the upper part of the right lower extremity. Likely 2/2 right hip fracture. hemoglobin has been stable around 8. If it drops to 7 will transfuse the patient unit of packed red blood cells per (3) Anemia Assessment/Plan: Secondary to hematomaDue to right hip fracture. Hemoglobin stable at 8. Patient asymptomatic. We will continue to monitor H&H. If patient's hemoglobin drops to 7, will transfuse packed red blood cells. On supplemental iron. (4) AAA (abdominal aortic aneurysm) Qualifiers: Presence of rupture: without rupture Qualified Code(s): I71.4 - Abdominal aortic aneurysm, without rupture Assessment/Plan: This is known from previous studies in March 2021. Dimensions currently of 4.8 x 5.9 cm size with 8.2 cm in length. Located in the distal abdominal aorta. Patient will need to follow-up with vascular surgery in the outpatient setting. She was advised to do so at the time of initial findings. This was further reiterated during this hospital stay. (5) Arrhythmia Assessment/Plan: On diltiazem CD 120mg qpm. (6) CKD (chronic kidney disease) stage 4, GFR 15-29 ml/min Assessment/Plan: Creatinine at admission was 2.6. Creatinine today is 1.3 with estimated GFR of 40. We will continue to monitor. (7) HLD (hyperlipidemia) Assessment/Plan: Atorvastatin 40 mg p.o. every afternoon. (8) Hypertension Assessment/Plan: On diltiazem CD 120 mg p.o. every afternoon - Current Meds Current Meds: Current Medications Generic Name Dose Route Start Last Admin Trade Name Freq PRN Reason Stop Dose Admin Acetaminophen 650 mg 08/05/21 13:59 08/09/21 05:45 Acetaminophen 325 Mg Tablet PO 650 mg Q4HR PRN Administration Pain 1 to 4 Aspirin 81 mg 08/08/21 09:00 08/08/21 21:41 Aspirin Chew 81 Mg Tablet PO 81 mg BID JANNETH Administration Atorvastatin Calcium 40 mg 08/05/21 21:00 08/08/21 21:41 Atorvastatin 40 Mg Tablet PO 40 mg QPM JANNETH Administration Calcium Carbonate/Glycine 500 mg 08/08/21 09:00 08/08/21 21:41 Calcium Carbonate Chew 500 Mg Tablet PO 500 mg BID JANNETH Administration Cholecalciferol 50 mcg 08/08/21 09:00 08/08/21 10:04 Cholecalciferol 25 Mcg Tablet PO 50 mcg DAILY JANNETH Administration Diltiazem HCl 120 mg 08/05/21 21:00 08/08/21 21:41 Diltiazem Cd 120 Mg Capsule PO 120 mg QPM JANNETH Administration Duloxetine HCl 60 mg 08/06/21 09:00 08/08/21 08:56 Duloxetine 30 Mg Capsule PO 60 mg DAILY JANNETH Administration Ferrous Gluconate 324 mg 08/06/21 08:00 08/08/21 08:56 Ferrous Gluconate 324 Mg Tablet PO 324 mg DAILYWM JANNETH Administration Ipratropium [place] 0.5 mg 08/07/21 07:32 08/07/21 08:02 Ipratropium 0.2 Mg/Ml Neb INH 0.5 mg QID PRN Administration Shortness of Air/Wheezing Levalbuterol HCl 1.25 mg 08/06/21 08:28 08/07/21 08:02 Levalbuterol 1.25 Mg/3 Ml Neb INH 1.25 mg Q4H PRN Administration Shortness of Air/Wheezing Oxycodone HCl 2.5 mg 08/08/21 11:30 08/09/21 05:46 Oxycodone 5 Mg Tablet PO 2.5 mg Q4HR PRN Administration Pain 5 to 7 Pantoprazole Sodium 40 mg 08/08/21 07:00 08/09/21 05:36 Pantoprazole 40 Mg Tablet PO 40 mg QDAC JANNETH Administration Polyethylene Glycol 17 gm 08/08/21 09:00 08/08/21 08:56 Polyethylene Glycol 3350 17 Gm Packet PO 17 gm DAILY JANNETH Administration Sodium Chloride 10 ml 08/05/21 17:00 08/09/21 00:05 Sodium Chloride Flush 0.9% 10 Ml Syringe IVP 10 ml 0100,0900,1700 JANNETH Administration - Lab Result Fish Bone Diagrams: 08/09/21 05:29 08/09/21 05:29 Subjective - Subjective Patient Reports: Other (Patient was in bed at time of exam. She rated her pain 8 out of 10. She denied any other complaints.) Objective Vital Signs: Vital Signs - 24 hr 08/08/21 08/08/21 08/08/21 08:36 11:20 11:30 Temperature 36.7 C Heart Rate [ 78 78 Activity] Heart Rate [ 82 Brachial] Heart Rate [ 90 90 Sitting] Heart Rate [ 68 Supine] Respiratory 18 Rate Blood Pressure 118/63 118/63 [Activity] Blood Pressure 114/57 L [Right Brachial artery] Blood Pressure 97/62 97/62 [Sitting] Blood Pressure 106/53 L [Supine] O2 Saturation 93 08/08/21 08/08/21 08/08/21 13:00 15:54 21:42 Temperature 36.6 C 36.7 C Heart Rate [ Activity] Heart Rate [ 75 77 87 Brachial] Heart Rate [ Sitting] Heart Rate [ Supine] Respiratory 16 20 Rate Blood Pressure [Activity] Blood Pressure 101/53 L 109/93 H 106/62 [Right Brachial artery] Blood Pressure [Sitting] Blood Pressure [Supine] O2 Saturation 94 94 08/09/21 08/09/21 00:08 05:35 Temperature 36.8 C 36.9 C Heart Rate [ Activity] Heart Rate [ 83 74 Brachial] Heart Rate [ Sitting] Heart Rate [ Supine] Respiratory 17 16 Rate Blood Pressure [Activity] Blood Pressure 97/54 L 102/56 L [Right Brachial artery] Blood Pressure [Sitting] Blood Pressure [Supine] O2 Saturation 95 94 Oxygen O2 Source Nasal cannula I&O (Last 24 Hrs): Intake and Output Totals x24h 08/07/21 08/08/21 08/09/21 23:59 23:59 23:59 Intake Total 500 650 200 Output Total 650 550 400 Balance -150 100 -200 General: Alert, Oriented x3, Moderate distress HEENT: Atraumatic, PERRLA Neck: Supple, No JVD Neuro: Alert, Oriented Times 3 Cardiovascular: Regular rate, Normal S1, Normal S2 Respiratory: Chest non-tender, No respiratory distress, Breath sounds nml Abdomen: Normal bowel sounds, Soft, No tenderness, No masses Extremities: No clubbing, No cyanosis, No edema Skin: No rashes - Results Results: Laboratory Results WBC 9.8 x10^3/uL (4.8-10.8) 08/09/21 05:29 RBC 2.78 10^6/uL (4.20-5.40) L 08/09/21 05:29 Hgb 8.0 g/dL (12.0-16.0) L 08/09/21 05:29 Hct 25.0 % (37.0-47.0) L 08/09/21 05:29 MCV 89.9 fL (81.0-99.0) 08/09/21 05:29 MCH 28.8 pg (27.0-31.0) 08/09/21 05:29 MCHC 32.0 g/dL (32.0-36.0) 08/09/21 05:29 RDW 15.7 % (12.0-15.0) H 08/09/21 05:29 Plt Count 288 10^3/uL (130-450) 08/09/21 05:29 MPV 10.4 fL (7.9-10.8) 08/09/21 05:29 Reticulocyte % (Auto) 1.27 % (0.5-2.3) 08/05/21 11:08 Neut # (Auto) 6.7 10^3/uL (1.5-6.6) H 08/09/21 05:29 Lymph # (Auto) 1.2 10^3/uL (1.5-3.5) L 08/09/21 05:29 [place] # (Auto) 1.4 10^3/uL (0.0-1.0) H 08/09/21 05:29 Eos # (Auto) 0.5 10^3/uL (0.0-0.7) 08/09/21 05:29 Baso # (Auto) 0.1 10^3/uL (0.0-0.1) 08/09/21 05:29 Absolute Nucleated RBC 0.00 x10^3/uL 08/09/21 05:29 Total Counted 100 08/07/21 05:58 Band Neuts % (Manual) 0 % (0-10) 08/07/21 05:58 Reactive Lymphs % (Man) 5 % 08/07/21 05:58 Abnorm Lymph % (Manual) 0 % 08/07/21 05:58 Myelocytes % 3 % (-0) H 08/07/21 05:58 Nucleated RBC % 0.0 /100WBC 08/09/21 05:29 Neutrophils # (Manual) 6.6 10^3/uL (1.5-6.6) 08/07/21 05:58 Lymphocytes # (Manual) 1.8 10^3/uL (1.5-3.5) 08/07/21 05:58 Monocytes # (Manual) 1.0 10^3/uL (0.0-1.0) 08/07/21 05:58 Eosinophils # (Manual) 0.2 10^3/uL (0-0.7) 08/07/21 05:58 Basophils # (Manual) 0.0 10^3/uL (0-0.1) 08/07/21 05:58 Differential Comment MANUAL DIFFERENTIAL 08/07/21 05:58 WBC Morphology NORMAL APPEARANCE (NORMAL) 08/05/21 11:08 Platelet Estimate NORMAL (130-450,000) (NORMAL) 08/05/21 11:08 Platelet Morphology NORMAL APPEARANCE (NORMAL) 08/05/21 11:08 RBC Morph Micro Appear 3+ ANISOCYTOSIS (NORMAL) 08/07/21 05:58 Absolute Retic 0.042 10^6/uL (0.020-0.110) 08/05/21 11:08 INR (Fingerstick) 1.1 (0.8-1.2) 08/05/21 16:25 Sodium 135 mmol/L (135-145) 08/09/21 05:29 Potassium 4.0 mmol/L (3.5-5.0) 08/09/21 05:29 Chloride 101 mmol/L (101-111) 08/09/21 05:29 Carbon Dioxide 25 mmol/L (21-32) 08/09/21 05:29 Anion Gap 9.0 (6-13) 08/09/21 05:29 BUN 25 mg/dL (6-20) H 08/09/21 05:29 Creatinine 1.3 mg/dL (0.4-1.0) H 08/09/21 05:29 Estimated GFR (MDRD) 40 (>89) L 08/09/21 05:29 Glucose 104 mg/dL (70-100) H 08/09/21 05:29 Calcium 8.0 mg/dL (8.5-10.3) L 08/09/21 05:29 Iron 23 ug/dL (28-170) L 08/05/21 11:08 TIBC 321 ug/dL (250-450) 08/05/21 11:08 % Saturation 7 % (20-50) L 08/05/21 11:08 Transferrin 229 mg/dL (192-382) 08/05/21 11:08 Ferritin 68.1 ng/mL (11.0-306.8) 08/05/21 11:08 Total Bilirubin 0.5 mg/dL (0.2-1.0) 08/05/21 11:08 AST 22 IU/L (10-42) 08/05/21 11:08 ALT 17 IU/L (10-60) 08/05/21 11:08 Alkaline Phosphatase 97 IU/L (42-121) 08/05/21 11:08 Lactate Dehydrogenase 145 IU/L (91-225) 08/05/21 18:38 Total Protein 7.4 g/dL (6.7-8.2) 08/05/21 11:08 Albumin 4.1 g/dL (3.2-5.5) 08/05/21 11:08 Globulin 3.3 g/dL (2.1-4.2) 08/05/21 11:08 Albumin/Globulin Ratio 1.2 (1.0-2.2) 08/05/21 11:08 Lipase 39 U/L (22-51) 08/05/21 11:08 Vitamin B12 182 pg/mL (180-914) 08/05/21 11:08 Urine Color YELLOW 08/05/21 19:45 Urine Clarity CLEAR (CLEAR) 08/05/21 19:45 Urine pH 5.0 PH (5.0-7.5) 08/05/21 19:45 Ur Specific [place] >=1.030 (1.002-1.030) H 08/05/21 19:45 Urine Protein NEGATIVE mg/dL (NEGATIVE) 08/05/21 19:45 Urine Glucose (UA) NEGATIVE mg/dL (NEGATIVE) 08/05/21 19:45 Urine Ketones NEGATIVE mg/dL (NEGATIVE) 08/05/21 19:45 Urine Occult Blood NEGATIVE (NEGATIVE) 08/05/21 19:45 Urine Nitrite NEGATIVE (NEGATIVE) 08/05/21 19:45 Urine Bilirubin NEGATIVE (NEGATIVE) 08/05/21 19:45 Urine Urobilinogen 0.2 (NORMAL) E.U./dL (NORMAL) 08/05/21 19:45 Ur Leukocyte Esterase NEGATIVE (NEGATIVE) 08/05/21 19:45 Urine RBC None Seen /HPF (0-5) 08/05/21 19:45 Urine WBC 0-3 /HPF (0-5) 08/05/21 19:45 Ur Squamous Epith Cells FEW Squamous (<= Few) 08/05/21 19:45 Urine Bacteria None Seen /HPF (None Seen) 08/05/21 19:45 Urine Culture Comments NOT INDICATED 08/05/21 19:45 Nasal Adenovirus (PCR) NOT DETECTED 08/05/21 11:14 Nasal B. parapertussis DNA (PCR) NOT DETECTED 08/05/21 11:14 Nasal Coronavir 229E PCR NOT DETECTED 08/05/21 11:14 Nasal Coronavir HKU1 PCR NOT DETECTED 08/05/21 11:14 Nasal Coronavir NL63 PCR NOT DETECTED 08/05/21 11:14 Nasal Coronavir OC43 PCR NOT DETECTED 08/05/21 11:14 Nasal Enterovir/Rhinovir PCR NOT DETECTED 08/05/21 11:14 Nasal Influenza B PCR NOT DETECTED 08/05/21 11:14 Nasal Influenza A PCR NOT DETECTED 08/05/21 11:14 Nasal Parainfluen 1 PCR NOT DETECTED 08/05/21 11:14 Nasal Parainfluen 2 PCR NOT DETECTED 08/05/21 11:14 Nasal Parainfluen 3 PCR NOT DETECTED 08/05/21 11:14 Nasal Parainfluen 4 PCR NOT DETECTED 08/05/21 11:14 Nasal RSV (PCR) NOT DETECTED 08/05/21 11:14 Nasal B.pertussis DNA PCR NOT DETECTED 08/05/21 11:14 Nasal C.pneumoniae (PCR) NOT DETECTED 08/05/21 11:14 [place] Human Metapneumo PCR NOT DETECTED 08/05/21 11:14 Nasal M.pneumoniae (PCR) NOT DETECTED 08/05/21 11:14 Nasal SARS-CoV-2 (PCR) NOT DETECTED 08/05/21 11:14 Blood Type A NEGATIVE 08/06/21 08:00 Blood Type Recheck A NEGATIVE 08/06/21 09:32 Antibody Screen NEGATIVE 08/06/21 08:00 Crossmatch IS Only See Detail 08/06/21 08:00 ABX Reporting Has patient been on IV antibiotics over the past 48 hours?: No
[2021-08-09] MEDS: CHOLECALCIFEROL 25 MCG TABLET PO SCH (08:05)
[2021-08-09] MEDS: polyethylene glycoL 3350 17 GM PACKET PO SCH (08:05)
[2021-08-09] MEDS: DULoxetine 30 MG CAPSULE PO SCH (08:05)
[2021-08-09] MEDS: FERROUS GLUCONATE 324 MG TABLET PO SCH (08:05)
[2021-08-09] MEDS: CALCIUM CARBONATE CHEW 500 MG TABLET PO SCH ×2 (08:05→21:11)
[2021-08-09] MEDS: ASPIRIN CHEW 81 MG TABLET PO SCH ×2 (08:05→21:11)
[2021-08-09] MEDS: ATORVASTATIN 40 MG TABLET PO SCH (21:11)
[2021-08-09] MEDS: diltiaZEM CD 120 MG CAPSULE PO SCH (21:13)
[2021-08-10] MEDS: oxyCODONE 5 MG TABLET PO PRN ×3 (05:27→20:56)
[2021-08-10] MEDS: PANTOPRAZOLE 40 MG TABLET PO SCH (05:27)
[2021-08-10] MEDS: ACETAMINOPHEN 325 MG TABLET PO PRN ×3 (05:27→20:57)
[2021-08-10 05:59] LABS: BASOPHILS % (AUTO) 0.2 %; EOSINOPHILS # (AUTO) 0.5 10^3/uL (0.0-0.7); EOSINOPHILS % (AUTO) 5.8 %; HCT - HEMATOCRIT 23.2 % (37.0-47.0); HGB - HEMOGLOBIN 7.3 g/dL (12.0-16.0); LYMPHOCYTES # (AUTO) 1.7 10^3/uL (1.5-3.5); LYMPHOCYTES % (AUTO) 20.9 %; MEAN CORPUSCULAR HEMOGLOBIN 28.5 pg (27.0-31.0); MEAN CORPUSCULAR HGB CONC 31.5 g/dL (32.0-36.0); MEAN CORPUSCULAR VOLUME 90.6 fL (81.0-99.0); MEAN PLATELET VOLUME 10.1 fL (7.9-10.8); MONOCYTES # (AUTO) 0.9 10^3/uL (0.0-1.0); MONOCYTES % (AUTO) 10.5 %; NEUTROPHILS % (AUTO) 62.1 %; PLT - PLATELET COUNT 317 10^3/uL (130-450); RED BLOOD COUNT 2.56 10^6/uL (4.20-5.40); RED CELL DISTRIBUTION WIDTH 15.9 % (12.0-15.0); WHITE BLOOD COUNT 8.1 x10^3/uL (4.8-10.8)
[2021-08-10 06:14] LABS: CALCIUM 8.1 mg/dL (8.5-10.3); CREATININE 1.2 mg/dL (0.4-1.0); POTASSIUM 4.1 mmol/L (3.5-5.0)
--- NOTE | 2021-08-10 07:15 | PROVIDER PROGRESS NOTE ---
Assessment/Plan - Problem List (1) Hip fracture Qualifiers: Encounter type: initial encounter Fracture type: closed Laterality: right Qualified Code(s): S72.001A - Fracture of unspecified part of neck of right femur, initial encounter for closed fracture Assessment/Plan: Right hip fracture Status post surgery postop day #3. PT/OT working with patient. Pain management as needed. Social work to facilitate the process of placement in a rehab facility Orthopedic surgery following (2) Hematoma Assessment/Plan: Intramuscular in the upper part of the right lower extremity. Likely 2/2 right hip fracture. hemoglobin was 7.3 Transfusing 2 units PRBC (3) Anemia Assessment/Plan: Secondary to hematoma due to right hip fracture. Hemoglobin was 7.3 Transfusing 2 units PRBC We will continue to monitor H&H. On supplemental iron. (4) AAA (abdominal aortic aneurysm) Qualifiers: Presence of rupture: without rupture Qualified Code(s): I71.4 - Abdominal aortic aneurysm, without rupture Assessment/Plan: This is known from previous studies in March 2021. Dimensions currently of 4.8 x 5.9 cm size with 8.2 cm in length. Located in the distal abdominal aorta. Patient will need to follow-up with vascular surgery in the outpatient setting. She was advised to do so at the time of initial findings. This was further re iterated during this hospital stay. (5) Arrhythmia Assessment/Plan: On diltiazem CD 120mg qpm. (6) CKD (chronic kidney disease) stage 4, GFR 15-29 ml/min Assessment/Plan: Creatinine at admission was 2.3. Creatinine today is 1.2 with estimated GFR of 44. We will continue to monitor. (7) HLD (hyperlipidemia) Assessment/Plan: Atorvastatin 40 mg p.o. every afternoon. (8) Hypertension Assessment/Plan: On diltiazem CD 120 mg p.o. every afternoon - Current Meds Current Meds: Current Medications Generic Name Dose Route Start Last Admin Trade Name Freq PRN Reason Stop Dose Admin Acetaminophen 650 mg 08/05/21 13:59 08/10/21 05:27 Acetaminophen 325 Mg Tablet PO 650 mg Q4HR PRN Administration Pain 1 to 4 Aspirin 81 mg 08/08/21 09:00 08/09/21 21:11 Aspirin Chew 81 Mg Tablet PO 81 mg BID JANNETH Administration Atorvastatin Calcium 40 mg 08/05/21 21:00 08/09/21 21:11 Atorvastatin 40 Mg Tablet PO 40 mg QPM JANNETH Administration Calcium Carbonate/Glycine 500 mg 08/08/21 09:00 08/09/21 21:11 Calcium Carbonate Chew 500 Mg Tablet PO 500 mg BID JANNETH Administration Cholecalciferol 50 mcg 08/08/21 09:00 08/09/21 08:05 Cholecalciferol 25 Mcg Tablet PO 50 mcg DAILY JANNETH Administration Diltiazem HCl 120 mg 08/05/21 21:00 08/09/21 21:13 Diltiazem Cd 120 Mg Capsule PO 120 mg QPM JANNETH Administration Duloxetine HCl 60 mg 08/06/21 09:00 08/09/21 08:05 Duloxetine 30 Mg Capsule PO 60 mg DAILY JANNETH Administration Ferrous Gluconate 324 mg 08/06/21 08:00 08/09/21 08:05 Ferrous Gluconate 324 Mg Tablet PO 324 mg DAILYWM JANNETH Administration Ipratropium [place] 0.5 mg 08/07/21 07:32 08/07/21 08:02 Ipratropium 0.2 Mg/Ml Neb INH 0.5 mg QID PRN Administration Shortness of Air/Wheezing Levalbuterol HCl 1.25 mg 08/06/21 08:28 08/07/21 08:02 Levalbuterol 1.25 Mg/3 Ml Neb INH 1.25 mg Q4H PRN Administration Shortness of Air/Wheezing Oxycodone HCl 2.5 mg 08/08/21 11:30 08/10/21 05:27 Oxycodone 5 Mg Tablet PO 2.5 mg Q4HR PRN Administration Pain 5 to 7 Pantoprazole Sodium 40 mg 08/08/21 07:00 08/10/21 05:27 Pantoprazole 40 Mg Tablet PO 40 mg QDAC JANNETH Administration Polyethylene Glycol 17 gm 08/08/21 09:00 08/09/21 08:05 Polyethylene Glycol 3350 17 Gm Packet PO 17 gm DAILY JANNETH Administration Sodium Chloride 10 ml 08/05/21 17:00 08/09/21 23:50 Sodium Chloride Flush 0.9% 10 Ml Syringe IVP 10 ml 0100,0900,1700 JANNETH Administration - Lab Result Fish Bone Diagrams: 08/10/21 04:48 08/10/21 04:48 - Additional Planning My Orders: My Active Orders 08/10/21 RBC, LEUKOREDUCED Routine TYPE AND SCREEN Routine 08/10/21 07:13 Transfuse RBCs Leukoreduced [RC] .ONCE 08/10/21 17:00 CBC - COMP BLD CT W/AUTO DIFF [HEME] Timed Subjective - Subjective Patient Reports: Other (Resting comfortably in bed. Pain to palpation on right hip.) Objective Vital Signs: Vital Signs - 24 hr 08/09/21 08/09/21 08/09/21 08:24 12:18 15:59 Temperature 36.4 C L 36.7 C 36.6 C Heart Rate Heart Rate [ 80 75 71 Brachial] Respiratory 16 18 18 Rate Blood Pressure 102/58 L [Left Brachial artery] Blood Pressure 98/57 L 102/55 L [Right Brachial artery] O2 Saturation 95 94 94 08/09/21 08/09/21 08/09/21 20:00 20:05 20:15 Temperature 36.6 C Heart Rate 79 Heart Rate [ Brachial] Respiratory 18 19 Rate Blood Pressure [Left Brachial artery] Blood Pressure [Right Brachial artery] O2 Saturation 90 L 93 93 08/09/21 08/09/21 08/10/21 21:12 23:49 05:16 Temperature 36.6 C 36.5 C Heart Rate Heart Rate [ 84 87 77 Brachial] Respiratory 18 16 18 Rate Blood Pressure [Left Brachial artery] Blood Pressure 108/57 L 105/57 L 100/61 [Right Brachial artery] O2 Saturation 92 95 95 Oxygen O2 Source Nasal cannula I&O (Last 24 Hrs): Intake and Output Totals x24h 08/08/21 08/09/21 08/10/21 23:59 23:59 23:59 Intake Total 650 800 50 Output Total 550 1250 400 Balance 100 -450 -350 Comments/Notes: General: Alert, Oriented x3, Moderate distress HEENT: Atraumatic, PERRLA Neck: Supple, No JVD Neuro: Alert, Oriented Times 3 Cardiovascular: Regular rate, Normal S1, Normal S2 Respiratory: Chest non-tender, No respiratory distress, Breath sounds nml Abdomen: Normal bowel sounds, Soft, No tenderness, No masses Extremities: No clubbing, No cyanosis, No edema Skin: No rashes - Results Results: Laboratory Results WBC 8.1 x10^3/uL (4.8-10.8) 08/10/21 04:48 RBC 2.56 10^6/uL (4.20-5.40) L 08/10/21 04:48 Hgb 7.3 g/dL (12.0-16.0) L 08/10/21 04:48 Hct 23.2 % (37.0-47.0) L 08/10/21 04:48 MCV 90.6 fL (81.0-99.0) 08/10/21 04:48 MCH 28.5 pg (27.0-31.0) 08/10/21 04:48 MCHC 31.5 g/dL (32.0-36.0) L 08/10/21 04:48 RDW 15.9 % (12.0-15.0) H 08/10/21 04:48 Plt Count 317 10^3/uL (130-450) 08/10/21 04:48 MPV 10.1 fL (7.9-10.8) 08/10/21 04:48 Reticulocyte % (Auto) 1.27 % (0.5-2.3) 08/05/21 11:08 Neut # (Auto) 5.0 10^3/uL (1.5-6.6) 08/10/21 04:48 Lymph # (Auto) 1.7 10^3/uL (1.5-3.5) 08/10/21 04:48 [place] # (Auto) 0.9 10^3/uL (0.0-1.0) 08/10/21 04:48 Eos # (Auto) 0.5 10^3/uL (0.0-0.7) 08/10/21 04:48 Baso # (Auto) 0.0 10^3/uL (0.0-0.1) 08/10/21 04:48 Absolute Nucleated RBC 0.00 x10^3/uL 08/10/21 04:48 Total Counted 100 08/07/21 05:58 Band Neuts % (Manual) 0 % (0-10) 08/07/21 05:58 Reactive Lymphs % (Man) 5 % 08/07/21 05:58 Abnorm Lymph % (Manual) 0 % 08/07/21 05:58 Myelocytes % 3 % (-0) H 08/07/21 05:58 Nucleated RBC % 0.0 /100WBC 08/10/21 04:48 Neutrophils # (Manual) 6.6 10^3/uL (1.5-6.6) 08/07/21 05:58 Lymphocytes # (Manual) 1.8 10^3/uL (1.5-3.5) 08/07/21 05:58 Monocytes # (Manual) 1.0 10^3/uL (0.0-1.0) 08/07/21 05:58 Eosinophils # (Manual) 0.2 10^3/uL (0-0.7) 08/07/21 05:58 Basophils # (Manual) 0.0 10^3/uL (0-0.1) 08/07/21 05:58 Differential Comment MANUAL DIFFERENTIAL 08/07/21 05:58 WBC Morphology NORMAL APPEARANCE (NORMAL) 08/05/21 11:08 Platelet Estimate NORMAL (130-450,000) (NORMAL) 08/05/21 11:08 Platelet Morphology NORMAL APPEARANCE (NORMAL) 08/05/21 11:08 RBC Morph Micro Appear 3+ ANISOCYTOSIS (NORMAL) 08/07/21 05:58 Absolute Retic 0.042 10^6/uL (0.020-0.110) 08/05/21 11:08 INR (Fingerstick) 1.1 (0.8-1.2) 08/05/21 16:25 Sodium 135 mmol/L (135-145) 08/10/21 04:48 Potassium 4.1 mmol/L (3.5-5.0) 08/10/21 04:48 Chloride 103 mmol/L (101-111) 08/10/21 04:48 Carbon Dioxide 27 mmol/L (21-32) 08/10/21 04:48 Anion Gap 5.0 (6-13) L 08/10/21 04:48 BUN 27 mg/dL (6-20) H 08/10/21 04:48 Creatinine 1.2 mg/dL (0.4-1.0) H 08/10/21 04:48 Estimated GFR (MDRD) 44 (>89) L 08/10/21 04:48 Glucose 101 mg/dL (70-100) H 08/10/21 04:48 Calcium 8.1 mg/dL (8.5-10.3) L 08/10/21 04:48 Iron 23 ug/dL (28-170) L 08/05/21 11:08 TIBC 321 ug/dL (250-450) 08/05/21 11:08 % Saturation 7 % (20-50) L 08/05/21 11:08 Transferrin 229 mg/dL (192-382) 08/05/21 11:08 Ferritin 68.1 ng/mL (11.0-306.8) 08/05/21 11:08 Total Bilirubin 0.5 mg/dL (0.2-1.0) 08/05/21 11:08 AST 22 IU/L (10-42) 08/05/21 11:08 ALT 17 IU/L (10-60) 08/05/21 11:08 Alkaline Phosphatase 97 IU/L (42-121) 08/05/21 11:08 Lactate Dehydrogenase 145 IU/L (91-225) 08/05/21 18:38 Total Protein 7.4 g/dL (6.7-8.2) 08/05/21 11:08 Albumin 4.1 g/dL (3.2-5.5) 08/05/21 11:08 Globulin 3.3 g/dL (2.1-4.2) 08/05/21 11:08 Albumin/Globulin Ratio 1.2 (1.0-2.2) 08/05/21 11:08 Lipase 39 U/L (22-51) 08/05/21 11:08 Vitamin B12 182 pg/mL (180-914) 08/05/21 11:08 Urine Color YELLOW 08/05/21 19:45 Urine Clarity CLEAR (CLEAR) 08/05/21 19:45 Urine pH 5.0 PH (5.0-7.5) 08/05/21 19:45 Ur Specific [place] >=1.030 (1.002-1.030) H 08/05/21 19:45 Urine Protein NEGATIVE mg/dL (NEGATIVE) 08/05/21 19:45 Urine Glucose (UA) NEGATIVE mg/dL (NEGATIVE) 08/05/21 19:45 Urine Ketones NEGATIVE mg/dL (NEGATIVE) 08/05/21 19:45 Urine Occult Blood NEGATIVE (NEGATIVE) 08/05/21 19:45 Urine Nitrite NEGATIVE (NEGATIVE) 08/05/21 19:45 Urine Bilirubin NEGATIVE (NEGATIVE) 08/05/21 19:45 Urine Urobilinogen 0.2 (NORMAL) E.U./dL (NORMAL) 08/05/21 19:45 Ur Leukocyte Esterase NEGATIVE (NEGATIVE) 08/05/21 19:45 Urine RBC None Seen /HPF (0-5) 08/05/21 19:45 Urine WBC 0-3 /HPF (0-5) 08/05/21 19:45 Ur Squamous Epith Cells FEW Squamous (<= Few) 08/05/21 19:45 Urine Bacteria None Seen /HPF (None Seen) 08/05/21 19:45 Urine Culture Comments NOT INDICATED 08/05/21 19:45 Nasal Adenovirus (PCR) NOT DETECTED 08/05/21 11:14 Nasal B. parapertussis DNA (PCR) NOT DETECTED 08/05/21 11:14 Nasal Coronavir 229E PCR NOT DETECTED 08/05/21 11:14 Nasal Coronavir HKU1 PCR NOT DETECTED 08/05/21 11:14 Nasal Coronavir NL63 PCR NOT DETECTED 08/05/21 11:14 Nasal Coronavir OC43 PCR NOT DETECTED 08/05/21 11:14 Nasal Enterovir/Rhinovir PCR NOT DETECTED 08/05/21 11:14 Nasal Influenza B PCR NOT DETECTED 08/05/21 11:14 Nasal Influenza A PCR NOT DETECTED 08/05/21 11:14 Nasal Parainfluen 1 PCR NOT DETECTED 08/05/21 11:14 Nasal Parainfluen 2 PCR NOT DETECTED 08/05/21 11:14 Nasal Parainfluen 3 PCR NOT DETECTED 08/05/21 11:14 Nasal Parainfluen 4 PCR NOT DETECTED 08/05/21 11:14 Nasal RSV (PCR) NOT DETECTED 08/05/21 11:14 Nasal B.pertussis DNA PCR NOT DETECTED 08/05/21 11:14 Nasal C.pneumoniae (PCR) NOT DETECTED 08/05/21 11:14 Russ Human Metapneumo PCR NOT DETECTED 08/05/21 11:14 Nasal M.pneumoniae (PCR) NOT DETECTED 08/05/21 11:14 Nasal SARS-CoV-2 (PCR) NOT DETECTED 08/05/21 11:14 Blood Type A NEGATIVE 08/06/21 08:00 Blood Type Recheck A NEGATIVE 08/06/21 09:32 Antibody Screen NEGATIVE 08/06/21 08:00 Crossmatch IS Only See Detail 11/17/21 08:00 ABX Reporting Has patient been on IV antibiotics over the past 48 hours?: No
[2021-08-10] MEDS: SENNA 8.6 MG TABLET PO SCH (08:12)
[2021-08-10] MEDS: DOCUSATE SODIUM 250 MG CAPSULE PO SCH (08:12)
[2021-08-10] MEDS: polyethylene glycoL 3350 17 GM PACKET PO SCH (08:13)
[2021-08-10] MEDS: ASPIRIN CHEW 81 MG TABLET PO SCH ×2 (08:13→20:56)
[2021-08-10] MEDS: DULoxetine 30 MG CAPSULE PO SCH (08:13)
[2021-08-10] MEDS: CALCIUM CARBONATE CHEW 500 MG TABLET PO SCH ×2 (08:14→20:56)
[2021-08-10] MEDS: CHOLECALCIFEROL 25 MCG TABLET PO SCH (08:14)
[2021-08-10] MEDS: FERROUS GLUCONATE 324 MG TABLET PO SCH (08:14)
[2021-08-10] MEDS: SODIUM CHLORIDE FLUSH 0.9% 10 ML SYRINGE IVP SCH ×2 (13:49→17:43)
[2021-08-10 17:07] LABS: BASOPHILS % (AUTO) 0.5 %; EOSINOPHILS # (AUTO) 0.5 10^3/uL (0.0-0.7); EOSINOPHILS % (AUTO) 5.7 %; HCT - HEMATOCRIT 32.2 % (37.0-47.0); HGB - HEMOGLOBIN 10.7 g/dL (12.0-16.0); LYMPHOCYTES # (AUTO) 1.2 10^3/uL (1.5-3.5); LYMPHOCYTES % (AUTO) 14.5 %; MEAN CORPUSCULAR HEMOGLOBIN 30.1 pg (27.0-31.0); MEAN CORPUSCULAR HGB CONC 33.2 g/dL (32.0-36.0); MEAN CORPUSCULAR VOLUME 90.4 fL (81.0-99.0); MEAN PLATELET VOLUME 9.4 fL (7.9-10.8); MONOCYTES # (AUTO) 1.1 10^3/uL (0.0-1.0); MONOCYTES % (AUTO) 13.2 %; NEUTROPHILS # (AUTO) 5.4 10^3/uL (1.5-6.6); PLT - PLATELET COUNT 322 10^3/uL (130-450); RED BLOOD COUNT 3.56 10^6/uL (4.20-5.40); WHITE BLOOD COUNT 8.3 x10^3/uL (4.8-10.8)
[2021-08-10] MEDS: diltiaZEM CD 120 MG CAPSULE PO SCH (20:56)
[2021-08-10] MEDS: ATORVASTATIN 40 MG TABLET PO SCH (20:56)
[2021-08-11] MEDS: SODIUM CHLORIDE FLUSH 0.9% 10 ML SYRINGE IVP SCH ×4 (00:22→23:04)
[2021-08-11] MEDS: ACETAMINOPHEN 325 MG TABLET PO PRN ×3 (00:57→11:16)
[2021-08-11] MEDS: oxyCODONE 5 MG TABLET PO PRN ×3 (00:57→11:15)
[2021-08-11] MEDS: PANTOPRAZOLE 40 MG TABLET PO SCH (05:40)
[2021-08-11] MEDS: FERROUS GLUCONATE 324 MG TABLET PO SCH (08:33)
[2021-08-11] MEDS: DOCUSATE SODIUM 250 MG CAPSULE PO SCH (08:33)
[2021-08-11] MEDS: SENNA 8.6 MG TABLET PO SCH (08:33)
[2021-08-11] MEDS: CALCIUM CARBONATE CHEW 500 MG TABLET PO SCH ×2 (08:34→21:07)
[2021-08-11] MEDS: CHOLECALCIFEROL 25 MCG TABLET PO SCH (08:34)
[2021-08-11] MEDS: polyethylene glycoL 3350 17 GM PACKET PO SCH (08:34)
[2021-08-11] MEDS: ASPIRIN CHEW 81 MG TABLET PO SCH ×2 (08:34→21:07)
[2021-08-11] MEDS: DULoxetine 30 MG CAPSULE PO SCH (08:39)
--- NOTE | 2021-08-11 10:37 | PROVIDER PROGRESS NOTE ---
Assessment/Plan - Problem List (1) Hip fracture Qualifiers: Encounter type: initial encounter Fracture type: closed Laterality: right Qualified Code(s): S72.001A - Fracture of unspecified part of neck of right femur, initial encounter for closed fracture Assessment/Plan: Right hip fracture Status post surgery postop day #4. PT/OT working with patient. Pain management as needed. Patient going to [facility] on 08/12/21 (2) Hematoma Assessment/Plan: Intramuscular in the upper part of the right lower extremity. Likely 2/2 right hip fracture. hemoglobin was 12.3 after 2 units PRBC transfused 08/10/21 (3) Anemia Assessment/Plan: Secondary to hematoma due to right hip fracture. Hemoglobin was 12.3 We will continue to monitor H&H. On supplemental iron. (4) AAA (abdominal aortic aneurysm) Qualifiers: Presence of rupture: without rupture Qualified Code(s): I71.4 - Abdominal aortic aneurysm, without rupture Assessment/Plan: This is known from previous studies in March 2021. Dimensions currently of 4.8 x 5.9 cm size with 8.2 cm in length. Located in the distal abdominal aorta. Patient will need to follow-up with vascular surgery in the outpatient setting. She was advised to do so at the time of initial findings. This was further reiterated during this hospital stay. (5) Arrhythmia Assessment/Plan: On diltiazem CD 120mg qpm. (6) CKD (chronic kidney disease) stage 4, GFR 15-29 ml/min Assessment/Plan: Creatinine at admission was 2.3. Creatinine today is 1.4 with estimated GFR of 37. We will continue to monitor. (7) HLD (hyperlipidemia) Assessment/Plan: Atorvastatin 40 mg p.o. every afternoon. (8) Hypertension Assessment/Plan: On diltiazem CD 120 mg p.o. every afternoon (4) AAA (abdominal aortic aneurysm) Qualifiers: Presence of rupture: without rupture Qualified Code(s): I71.4 - Abdominal aortic aneurysm, without rupture - Current Meds Current Meds: Current Medications Generic Name Dose Route Start Last Admin Trade Name Freq PRN Reason Stop Dose Admin Acetaminophen 650 mg 08/05/21 13:59 08/11/21 05:40 Acetaminophen 325 Mg Tablet PO 650 mg Q4HR PRN Administration Pain 1 to 4 Aspirin 81 mg 08/08/21 09:00 08/11/21 08:34 Aspirin Chew 81 Mg Tablet PO 81 mg BID JANNETH Administration Atorvastatin Calcium 40 mg 08/05/21 21:00 08/10/21 20:56 Atorvastatin 40 Mg Tablet PO 40 mg QPM JANNETH Administration Calcium Carbonate/Glycine 500 mg 08/08/21 09:00 08/11/21 08:34 Calcium Carbonate Chew 500 Mg Tablet PO 500 mg BID JANNETH Administration Cholecalciferol 50 mcg 08/08/21 09:00 08/11/21 08:34 Cholecalciferol 25 Mcg Tablet PO 50 mcg DAILY JANNETH Administration Diltiazem HCl 120 mg 08/05/21 21:00 08/10/21 20:56 Diltiazem Cd 120 Mg Capsule PO 120 mg QPM JANNETH Administration Docusate Sodium 250 - 500 mg 08/10/21 09:00 08/11/21 08:33 Docusate Sodium 250 Mg Capsule PO 250 mg DAILY JANNETH Administration Duloxetine HCl 60 mg 08/06/21 09:00 08/11/21 08:39 Duloxetine 30 Mg Capsule PO 60 mg DAILY JANNETH Administration Ferrous Gluconate 324 mg 08/06/21 08:00 08/11/21 08:33 Ferrous Gluconate 324 Mg Tablet PO 324 mg DAILYWM JANNETH Administration Ipratropium [place] 0.5 mg 08/07/21 07:32 08/07/21 08:02 Ipratropium 0.2 Mg/Ml Neb INH 0.5 mg QID PRN Administration Shortness of Air/Wheezing Levalbuterol HCl 1.25 mg 08/06/21 08:28 08/07/21 08:02 Levalbuterol 1.25 Mg/3 Ml Neb INH 1.25 mg Q4H PRN Administration Shortness of Air/Wheezing Oxycodone HCl 2.5 mg 08/08/21 11:30 08/11/21 05:40 Oxycodone 5 Mg Tablet PO 2.5 mg Q4HR PRN Administration Pain 5 to 7 Pantoprazole Sodium 40 mg 08/08/21 07:00 08/11/21 05:40 Pantoprazole 40 Mg Tablet PO 40 mg QDAC JANNETH Administration Polyethylene Glycol 17 gm 08/08/21 09:00 08/11/21 08:34 Polyethylene Glycol 3350 17 Gm Packet PO 17 gm DAILY JANNETH Administration Senna 8.6 - 17.2 mg 08/10/21 09:00 08/11/21 08:33 Senna 8.6 Mg Tablet PO 8.6 mg DAILY JANNETH Administration Sodium Chloride 10 ml 08/05/21 17:00 08/11/21 08:40 Sodium Chloride Flush 0.9% 10 Ml Syringe IVP 10 ml 0100,0900,1700 JANNETH Administration - Lab Result Fish Bone Diagrams: 08/11/21 11:08 08/11/21 11:08 Subjective - Subjective Patient Reports: Other (Resting comfortably in bed. Her pain still fluctuates between mild to moderate. She was able to work more with physical therapy today. She continues to use incentive spirometer.) Objective Vital Signs: Vital Signs - 24 hr 08/10/21 08/10/21 08/10/21 10:45 10:55 13:00 Temperature 36.6 C 36.8 C 36.5 C Heart Rate 71 75 Heart Rate [ 73 Brachial] Respiratory 16 16 24 Rate Blood Pressure 123/69 112/66 Blood Pressure [Left Brachial artery] Blood Pressure 101/64 [Right Brachial artery] O2 Saturation 98 08/10/21 08/10/21 08/10/21 14:02 14:13 14:24 Temperature 36.5 C 36.5 C 36.5 C Heart Rate 69 69 70 Heart Rate [ Brachial] Respiratory 16 16 16 Rate Blood Pressure 110/60 110/60 111/55 L Blood Pressure [Left Brachial artery] Blood Pressure [Right Brachial artery] O2 Saturation 08/10/21 08/10/21 08/10/21 14:33 16:04 17:39 Temperature 36.6 C 36.5 C 36.6 C Heart Rate 71 85 Heart Rate [ 68 Brachial] Respiratory 16 19 18 Rate Blood Pressure 114/58 L 111/59 L Blood Pressure 110/61 [Left Brachial artery] Blood Pressure [Right Brachial artery] O2 Saturation 97 08/10/21 08/10/21 08/11/21 17:41 21:00 00:20 Temperature 37.1 C 36.7 C Heart Rate Heart Rate [ 86 80 Brachial] Respiratory 18 20 16 Rate Blood Pressure Blood Pressure [Left Brachial artery] Blood Pressure 120/71 120/67 [Right Brachial artery] O2 Saturation 94 94 95 08/11/21 08/11/21 05:19 09:00 Temperature 36.9 C 36.6 C Heart Rate Heart Rate [ 79 77 Brachial] Respiratory 21 18 Rate Blood Pressure Blood Pressure 132/69 H [Left Brachial artery] Blood Pressure 116/66 [Right Brachial artery] O2 Saturation 90 L 89 L Oxygen O2 Source Room air I&O (Last 24 Hrs): Intake and Output Totals x24h 08/09/21 08/10/21 08/11/21 23:59 23:59 23:59 Intake Total 800 1400 0 Output Total 1250 1400 500 Balance -450 0 -500 Comments/Notes: General: Alert, Oriented x3, Moderate distress HEENT: Atraumatic, PERRLA Neck: Supple, No JVD Neuro: Alert, Oriented Times 3 Cardiovascular: Regular rate, Normal S1, Normal S2 Respiratory: Chest non-tender, No respiratory distress, Breath sounds nml Abdomen: Normal bowel sounds, Soft, No tenderness, No masses Extremities: No clubbing, No cyanosis, No edema Skin: No rashes - Results Results: Laboratory Results WBC 8.3 x10^3/uL (4.8-10.8) 08/10/21 17:00 RBC 3.56 10^6/uL (4.20-5.40) L 08/10/21 17:00 Hgb 10.7 g/dL (12.0-16.0) L 08/10/21 17:00 Hct 32.2 % (37.0-47.0) L 08/10/21 17:00 MCV 90.4 fL (81.0-99.0) 08/10/21 17:00 MCH 30.1 pg (27.0-31.0) 08/10/21 17:00 MCHC 33.2 g/dL (32.0-36.0) 08/10/21 17:00 RDW 15.0 % (12.0-15.0) 08/10/21 17:00 Plt Count 322 10^3/uL (130-450) 08/10/21 17:00 MPV 9.4 fL (7.9-10.8) 08/10/21 17:00 Reticulocyte % (Auto) 1.27 % (0.5-2.3) 08/05/21 11:08 Neut # (Auto) 5.4 10^3/uL (1.5-6.6) 08/10/21 17:00 Lymph # (Auto) 1.2 10^3/uL (1.5-3.5) L 08/10/21 17:00 [place] # (Auto) 1.1 10^3/uL (0.0-1.0) H 08/10/21 17:00 Eos # (Auto) 0.5 10^3/uL (0.0-0.7) 08/10/21 17:00 Baso # (Auto) 0.0 10^3/uL (0.0-0.1) 08/10/21 17:00 Absolute Nucleated RBC 0.00 x10^3/uL 08/10/21 17:00 Total Counted 100 08/07/21 05:58 Band Neuts % (Manual) 0 % (0-10) 08/07/21 05:58 Reactive Lymphs % (Man) 5 % 08/07/21 05:58 Abnorm Lymph % (Manual) 0 % 08/07/21 05:58 Myelocytes % 3 % (-0) H 08/07/21 05:58 Nucleated RBC % 0.0 /100WBC 08/10/21 17:00 Neutrophils # (Manual) 6.6 10^3/uL (1.5-6.6) 08/07/21 05:58 Lymphocytes # (Manual) 1.8 10^3/uL (1.5-3.5) 08/07/21 05:58 Monocytes # (Manual) 1.0 10^3/uL (0.0-1.0) 08/07/21 05:58 Eosinophils # (Manual) 0.2 10^3/uL (0-0.7) 08/07/21 05:58 Basophils # (Manual) 0.0 10^3/uL (0-0.1) 08/07/21 05:58 Differential Comment MANUAL DIFFERENTIAL 08/07/21 05:58 WBC Morphology NORMAL APPEARANCE (NORMAL) 08/05/21 11:08 Platelet Estimate NORMAL (130-450,000) (NORMAL) 08/05/21 11:08 Platelet Morphology NORMAL APPEARANCE (NORMAL) 08/05/21 11:08 RBC Morph Micro Appear 3+ ANISOCYTOSIS (NORMAL) 08/07/21 05:58 Absolute Retic 0.042 10^6/uL (0.020-0.110) 08/05/21 11:08 INR (Fingerstick) 1.1 (0.8-1.2) 08/05/21 16:25 Sodium 135 mmol/L (135-145) 08/10/21 04:48 Potassium 4.1 mmol/L (3.5-5.0) 08/10/21 04:48 Chloride 103 mmol/L (101-111) 08/10/21 04:48 Carbon Dioxide 27 mmol/L (21-32) 08/10/21 04:48 Anion Gap 5.0 (6-13) L 08/10/21 04:48 BUN 27 mg/dL (6-20) H 08/10/21 04:48 Creatinine 1.2 mg/dL (0.4-1.0) H 08/10/21 04:48 Estimated GFR (MDRD) 44 (>89) L 08/10/21 04:48 Glucose 101 mg/dL (70-100) H 08/10/21 04:48 Calcium 8.1 mg/dL (8.5-10.3) L 08/10/21 04:48 Iron 23 ug/dL (28-170) L 08/05/21 11:08 TIBC 321 ug/dL (250-450) 08/05/21 11:08 % Saturation 7 % (20-50) L 08/05/21 11:08 Transferrin 229 mg/dL (192-382) 08/05/21 11:08 Ferritin 68.1 ng/mL (11.0-306.8) 08/05/21 11:08 Total Bilirubin 0.5 mg/dL (0.2-1.0) 08/05/21 11:08 AST 22 IU/L (10-42) 08/05/21 11:08 ALT 17 IU/L (10-60) 08/05/21 11:08 Alkaline Phosphatase 97 IU/L (42-121) 08/05/21 11:08 Lactate Dehydrogenase 145 IU/L (91-225) 08/05/21 18:38 Total Protein 7.4 g/dL (6.7-8.2) 08/05/21 11:08 Albumin 4.1 g/dL (3.2-5.5) 08/05/21 11:08 Globulin 3.3 g/dL (2.1-4.2) 08/05/21 11:08 Albumin/Globulin Ratio 1.2 (1.0-2.2) 08/05/21 11:08 Lipase 39 U/L (22-51) 08/05/21 11:08 Vitamin B12 182 pg/mL (180-914) 08/05/21 11:08 Urine Color YELLOW 08/05/21 19:45 Urine Clarity CLEAR (CLEAR) 08/05/21 19:45 Urine pH 5.0 PH (5.0-7.5) 08/05/21 19:45 Ur Specific [place] >=1.030 (1.002-1.030) H 08/05/21 19:45 Urine Protein NEGATIVE mg/dL (NEGATIVE) 08/05/21 19:45 Urine Glucose (UA) NEGATIVE mg/dL (NEGATIVE) 08/05/21 19:45 Urine Ketones NEGATIVE mg/dL (NEGATIVE) 08/05/21 19:45 Urine Occult Blood NEGATIVE (NEGATIVE) 08/05/21 19:45 Urine Nitrite NEGATIVE (NEGATIVE) 08/05/21 19:45 Urine Bilirubin NEGATIVE (NEGATIVE) 08/05/21 19:45 Urine Urobilinogen 0.2 (NORMAL) E.U./dL (NORMAL) 08/05/21 19:45 Ur Leukocyte Esterase NEGATIVE (NEGATIVE) 08/05/21 19:45 Urine RBC None Seen /HPF (0-5) 08/05/21 19:45 Urine WBC 0-3 /HPF (0-5) 08/05/21 19:45 Ur Squamous Epith Cells FEW Squamous (<= Few) 08/05/21 19:45 Urine Bacteria None Seen /HPF (None Seen) 08/05/21 19:45 Urine Culture Comments NOT INDICATED 08/05/21 19:45 Nasal Adenovirus (PCR) NOT DETECTED 08/05/21 11:14 Nasal B. parapertussis DNA (PCR) NOT DETECTED 08/05/21 11:14 Nasal Coronavir 229E PCR NOT DETECTED 08/05/21 11:14 Nasal Coronavir HKU1 PCR NOT DETECTED 08/05/21 11:14 Nasal Coronavir NL63 PCR NOT DETECTED 08/05/21 11:14 Nasal Coronavir OC43 PCR NOT DETECTED 08/05/21 11:14 Nasal Enterovir/Rhinovir PCR NOT DETECTED 08/05/21 11:14 Nasal Influenza B PCR NOT DETECTED 08/05/21 11:14 Nasal Influenza A PCR NOT DETECTED 08/05/21 11:14 Nasal Parainfluen 1 PCR NOT DETECTED 08/05/21 11:14 Nasal Parainfluen 2 PCR NOT DETECTED 08/05/21 11:14 Nasal Parainfluen 3 PCR NOT DETECTED 08/05/21 11:14 Nasal Parainfluen 4 PCR NOT DETECTED 08/05/21 11:14 Nasal RSV (PCR) NOT DETECTED 08/05/21 11:14 Nasal B.pertussis DNA PCR NOT DETECTED 08/05/21 11:14 Nasal C.pneumoniae (PCR) NOT DETECTED 08/05/21 11:14 Russ Human Metapneumo PCR NOT DETECTED 08/05/21 11:14 Nasal M.pneumoniae (PCR) NOT DETECTED 08/05/21 11:14 Nasal SARS-CoV-2 (PCR) NOT DETECTED 08/05/21 11:14 Blood Type A NEGATIVE 08/10/21 07:35 Blood Type Recheck A NEGATIVE 08/06/21 09:32 Antibody Screen NEGATIVE 08/10/21 07:35 Crossmatch IS Only See Detail 08/10/21 07:35
[2021-08-11 11:14] LABS: BASOPHILS # (AUTO) 0.1 10^3/uL (0.0-0.1); BASOPHILS % (AUTO) 0.6 %; EOSINOPHILS # (AUTO) 0.5 10^3/uL (0.0-0.7); EOSINOPHILS % (AUTO) 5.3 %; HCT - HEMATOCRIT 37.1 % (37.0-47.0); HGB - HEMOGLOBIN 12.3 g/dL (12.0-16.0); LYMPHOCYTES # (AUTO) 1.5 10^3/uL (1.5-3.5); LYMPHOCYTES % (AUTO) 15.5 %; MEAN CORPUSCULAR HEMOGLOBIN 29.9 pg (27.0-31.0); MEAN CORPUSCULAR HGB CONC 33.2 g/dL (32.0-36.0); MEAN CORPUSCULAR VOLUME 90.3 fL (81.0-99.0); MEAN PLATELET VOLUME 9.2 fL (7.9-10.8); MONOCYTES # (AUTO) 1.1 10^3/uL (0.0-1.0); MONOCYTES % (AUTO) 11.2 %; NEUTROPHILS # (AUTO) 6.4 10^3/uL (1.5-6.6); NEUTROPHILS % (AUTO) 66.3 %; PLT - PLATELET COUNT 394 10^3/uL (130-450); RED BLOOD COUNT 4.11 10^6/uL (4.20-5.40); RED CELL DISTRIBUTION WIDTH 15.5 % (12.0-15.0); WHITE BLOOD COUNT 9.7 x10^3/uL (4.8-10.8)
[2021-08-11 11:32] LABS: CALCIUM 8.7 mg/dL (8.5-10.3); CREATININE 1.4 mg/dL (0.4-1.0); POTASSIUM 4.3 mmol/L (3.5-5.0)
[2021-08-11] MEDS ORDERED: BISACODYL 10 MG SUPP PR ONE (15:21)
[2021-08-11] MEDS: KETOROLAC 30 MG/ML VIAL IVP PRN ×2 (15:54→23:04)
[2021-08-11 19:34] LABS: FECAL OCCULT BLOOD (FIT) POSITIVE (NEGATIVE)
[2021-08-11] MEDS: diltiaZEM CD 120 MG CAPSULE PO SCH (21:07)
[2021-08-11] MEDS: ATORVASTATIN 40 MG TABLET PO SCH (21:07)
[2021-08-12 06:03] LABS: BASOPHILS # (AUTO) 0.1 10^3/uL (0.0-0.1); BASOPHILS % (AUTO) 0.7 %; EOSINOPHILS # (AUTO) 0.5 10^3/uL (0.0-0.7); EOSINOPHILS % (AUTO) 5.7 %; HCT - HEMATOCRIT 32.7 % (37.0-47.0); HGB - HEMOGLOBIN 10.8 g/dL (12.0-16.0); LYMPHOCYTES # (AUTO) 1.7 10^3/uL (1.5-3.5); LYMPHOCYTES % (AUTO) 18.7 %; MEAN CORPUSCULAR HEMOGLOBIN 29.8 pg (27.0-31.0); MEAN CORPUSCULAR VOLUME 90.1 fL (81.0-99.0); MEAN PLATELET VOLUME 9.4 fL (7.9-10.8); MONOCYTES % (AUTO) 11.2 %; NEUTROPHILS # (AUTO) 5.6 10^3/uL (1.5-6.6); NEUTROPHILS % (AUTO) 62.4 %; PLT - PLATELET COUNT 402 10^3/uL (130-450); RED BLOOD COUNT 3.63 10^6/uL (4.20-5.40); RED CELL DISTRIBUTION WIDTH 15.5 % (12.0-15.0)
[2021-08-12 06:12] LABS: CALCIUM 8.5 mg/dL (8.5-10.3); CREATININE 1.4 mg/dL (0.4-1.0); POTASSIUM 4.2 mmol/L (3.5-5.0)
[2021-08-12] MEDS: PANTOPRAZOLE 40 MG TABLET PO SCH ×2 (06:38→16:58)
[2021-08-12] MEDS ORDERED: SODIUM CHLORIDE 0.9% 1,000 ML IV SCH (08:00)
--- NOTE | 2021-08-12 08:02 | XRAY Report ---
PROCEDURE: Chest 1 View X-Ray INDICATIONS: sob TECHNIQUE: One view of the chest was acquired. COMPARISON: 08/06/2021 and 08/05/2021 FINDINGS: Surgical changes and devices: None. Lungs and pleura: No pleural effusions or pneumothorax. Stable hyperaeration and flattening of the h emidiaphragms. No new focal airspace disease. Mediastinum: Mediastinal contours appear normal. Heart size is normal. Bones and chest wall: No suspicious bony lesions. Overlying soft tissues appear unremarkable. IMPRESSION: Stable examination of the chest without acute cardiopulmonary abnormalities. Stable findings of chron ic obstructive pulmonary physiology. Reviewed by: Kevin Monaco MD on 08/12/2021 8:01 AM [facility] [[email or web address]] Approved by: Kevin Monaco MD on 08/12/2021 8:01 AM [facility] [[email or web address]] Station ID: [id number]
[2021-08-12] MEDS ORDERED: PANTOPRAZOLE 40 MG TABLET PO SCH (09:00)
[2021-08-12] MEDS: ENOXAPARIN 30 MG/0.3 ML SYRINGE SUBQ SCH (09:33)
[2021-08-12] MEDS: CALCIUM CARBONATE CHEW 500 MG TABLET PO SCH ×2 (09:34→20:27)
[2021-08-12] MEDS: DULoxetine 30 MG CAPSULE PO SCH (09:34)
[2021-08-12] MEDS: DOCUSATE SODIUM 250 MG CAPSULE PO SCH (09:34)
[2021-08-12] MEDS: CHOLECALCIFEROL 25 MCG TABLET PO SCH (09:35)
[2021-08-12] MEDS: SODIUM CHLORIDE FLUSH 0.9% 10 ML SYRINGE IVP SCH ×3 (09:35→23:44)
[2021-08-12] MEDS: polyethylene glycoL 3350 17 GM PACKET PO SCH (09:35)
[2021-08-12] MEDS: FERROUS GLUCONATE 324 MG TABLET PO SCH (09:35)
[2021-08-12] MEDS: SENNA 8.6 MG TABLET PO SCH (09:35)
[2021-08-12] MEDS ORDERED: DEXTROSE 5%-0.9% NACL 1,000 ML IV SCH (11:00)
--- NOTE | 2021-08-12 11:00 | PROVIDER PROGRESS NOTE ---
Assessment/Plan - Problem List (1) GI bleed Assessment/Plan: Pt's occult stool test is positive for GI bleed, pt had dark stool, HGB drop to 10.8 from 12.3 on yesterday, called surgeon, plan to have EGD on today afternoon. Hold Aspirin bid, switch to Lovenox for DVT prophylaxis from right hip repair, Continue Protonix twice daily, Continue H&H. (2) Hip fracture Stated post day 5 of Right hip fracture repair continue PT/OT working with patient, and Pain management as needed. Lovenox for DVT prophylaxis (3) Hematoma Assessment/Plan: pt report she feel better and working with PT/OT, HGB is 10.8. consulted with orthopedics surgeon before about Intramuscular hematoma in the upper part of the right lower extremity. (4) Anemia Assessment/Plan: likely Secondary to GI bleed and hematoma due to right hip fracture. HGB is 10.8 on today We will continue to monitor H&H. On supplemental iron. (5) AAA (abdominal aortic aneurysm) This is known from previous studies in March 2021. it is stable, pt denies abdominal pain. Dimensions currently of 4.8 x 5.9 cm size with 8.2 cm in length. Located in the distal abdominal aorta. Patient will need to follow-up with vascular surgery in the outpatient setting. She was advised to do so at the time of initial findings. This was further reiterated during this hospital stay. (6) Arrhythmia Assessment/Plan: On diltiazem CD 120mg qpm. (7) CKD (chronic kidney disease) stage 4, GFR 15-29 ml/min Assessment/Plan: improved. Creatinine today is 1.4 with estimated GFR of 37. We will continue to monitor. (8) HLD (hyperlipidemia) Assessment/Plan: Atorvastatin 40 mg p.o. every afternoon. (9) Hypertension Assessment/Plan: On diltiazem CD 120 mg p.o. every afternoon (2) Hip fracture Qualifiers: Encounter type: initial encounter Fracture type: closed Laterality: right Qualified Code(s): S72.001A - Fracture of unspecified part of neck of right femur, initial encounter for closed fracture (4) AAA (abdominal aortic aneurysm) Qualifiers: Presence of rupture: without rupture Qualified Code(s): I71.4 - Abdominal aortic aneurysm, without rupture - Current Meds Current Meds: Current Medications Generic Name Dose Route Start Last Admin Trade Name Freq PRN Reason Stop Dose Admin Acetaminophen 650 mg 08/05/21 13:59 08/11/21 11:16 Acetaminophen 325 Mg Tablet PO 650 mg Q4HR PRN Administration Pain 1 to 4 Atorvastatin Calcium 40 mg 08/05/21 21:00 08/11/21 21:07 Atorvastatin 40 Mg Tablet PO 40 mg QPM JANNETH Administration Calcium Carbonate/Glycine 500 mg 08/08/21 09:00 08/12/21 09:34 Calcium Carbonate Chew 500 Mg Tablet PO 500 mg BID JANNETH Administration Cholecalciferol 50 mcg 08/08/21 09:00 08/12/21 09:35 Cholecalciferol 25 Mcg Tablet PO 50 mcg DAILY JANNETH Administration Diltiazem HCl 120 mg 08/05/21 21:00 08/11/21 21:07 Diltiazem Cd 120 Mg Capsule PO 120 mg QPM JANNETH Administration Docusate Sodium 250 - 500 mg 08/10/21 09:00 08/12/21 09:34 Docusate Sodium 250 Mg Capsule PO 250 mg DAILY JANNETH Administration Duloxetine HCl 60 mg 08/06/21 09:00 08/12/21 09:34 Duloxetine 30 Mg Capsule PO 60 mg DAILY JANNETH Administration Enoxaparin Sodium 30 mg 08/12/21 09:00 08/12/21 09:33 Enoxaparin 30 Mg/0.3 Ml Syringe SUBQ 30 mg DAILY JANNETH Administration Ferrous Gluconate 324 mg 08/06/21 08:00 08/12/21 09:35 Ferrous Gluconate 324 Mg Tablet PO 324 mg DAILYWM JANNETH Administration Ipratropium Robinson 0.5 mg 08/07/21 07:32 08/07/21 08:02 Ipratropium 0.2 Mg/Ml Neb INH 0.5 mg QID PRN Administration Shortness of Air/Wheezing Ketorolac Tromethamine 30 mg 08/11/21 10:38 08/11/21 23:04 Ketorolac 30 Mg/Ml Vial IVP 30 mg Q6HR PRN Administration PAIN Levalbuterol HCl 1.25 mg 08/06/21 08:28 08/07/21 08:02 Levalbuterol 1.25 Mg/3 Ml Neb INH 1.25 mg Q4H PRN Administration Shortness of Air/Wheezing Morphine Sulfate 1 mg 08/08/21 11:30 08/11/21 14:56 Morphine 2 Mg/Ml Carpuject IVP 1 mg Q4HR PRN Administration Pain 8 to 10 Oxycodone HCl 2.5 mg 08/08/21 11:30 08/11/21 11:15 Oxycodone 5 Mg Tablet PO 2.5 mg Q4HR PRN Administration Pain 5 to 7 Polyethylene Glycol 17 gm 08/08/21 09:00 08/12/21 09:35 Polyethylene Glycol 3350 17 Gm Packet PO 17 gm DAILY JANNETH Administration Senna 8.6 - 17.2 mg 08/10/21 09:00 08/12/21 09:35 Senna 8.6 Mg Tablet PO 8.6 mg DAILY JANNETH Administration Sodium Chloride 10 ml 08/05/21 17:00 08/12/21 09:35 Sodium Chloride Flush 0.9% 10 Ml Syringe IVP 10 ml 0100,0900,1700 JANNETH Administration - Lab Result Fish Bone Diagrams: 08/12/21 05:30 08/12/21 05:30 - Additional Planning My Orders: My Active Orders 08/12/21 07:47 NPO except Meds [DIET] 08/12/21 09:00 Enoxaparin [Lovenox] 30 mg SUBQ DAILY 08/12/21 11:00 Dextrose 5%-0.9% NaCl [D5ns] 1,000 ml IV 75 mls/hr 08/12/21 12:00 H&H [HEMOGLOBIN AND HEMATOCRIT] [HEME] Timed 08/12/21 16:00 Pantoprazole [Protonix] 40 mg PO BIDAC 08/12/21 20:00 H&H [HEMOGLOBIN AND HEMATOCRIT] [HEME] Timed Subjective - Subjective Patient Reports: Feeling Better, Resting Comfortably Objective Vital Signs: Vital Signs - 24 hr 08/11/21 08/11/21 08/11/21 12:38 15:35 20:29 Temperature 36.6 C 36.6 C 36.8 C Heart Rate [ 79 79 79 Brachial] Respiratory 18 19 24 Rate Blood Pressure 146/73 H 129/70 120/62 [Left Brachial artery] Blood Pressure [Right Brachial artery] O2 Saturation 91 L 92 92 08/11/21 08/12/21 08/12/21 23:10 06:07 08:21 Temperature 36.9 C 36.6 C 36.5 C Heart Rate [ 78 71 72 Brachial] Respiratory 20 20 16 Rate Blood Pressure 146/80 H 131/82 H [Left Brachial artery] Blood Pressure 130/74 [Right Brachial artery] O2 Saturation 92 90 L 90 L Oxygen O2 Source Room air I&O (Last 24 Hrs): Intake and Output Totals x24h 08/10/21 08/11/21 08/12/21 23:59 23:59 23:59 Intake Total 1400 270 200 Output Total 1400 1100 475 Balance 0 -830 -275 General: Alert, Oriented x3, Cooperative, No acute distress HEENT: Atraumatic, PERRLA Neck: Supple Lymphatic: no adenopathy Neuro: Alert, Non Focal, Oriented Times 3 Cardiovascular: Regular rate, Normal S1, Normal S2 Respiratory: Chest non-tender, No respiratory distress Abdomen: Normal bowel sounds, Soft, No tenderness Extremities: Normal pulses - Results Results: Laboratory Results WBC 9.0 x10^3/uL (4.8-10.8) 08/12/21 05:30 RBC 3.63 10^6/uL (4.20-5.40) L 08/12/21 05:30 Hgb 10.8 g/dL (12.0-16.0) L 08/12/21 05:30 Hct 32.7 % (37.0-47.0) L 08/12/21 05:30 MCV 90.1 fL (81.0-99.0) 08/12/21 05:30 MCH 29.8 pg (27.0-31.0) 08/12/21 05:30 MCHC 33.0 g/dL (32.0-36.0) 08/12/21 05:30 RDW 15.5 % (12.0-15.0) H 08/12/21 05:30 Plt Count 402 10^3/uL (130-450) 08/12/21 05:30 MPV 9.4 fL (7.9-10.8) 08/12/21 05:30 Reticulocyte % (Auto) 1.27 % (0.5-2.3) 08/05/21 11:08 Neut # (Auto) 5.6 10^3/uL (1.5-6.6) 08/12/21 05:30 Lymph # (Auto) 1.7 10^3/uL (1.5-3.5) 08/12/21 05:30 [place] # (Auto) 1.0 10^3/uL (0.0-1.0) 08/12/21 05:30 Eos # (Auto) 0.5 10^3/uL (0.0-0.7) 08/12/21 05:30 Baso # (Auto) 0.1 10^3/uL (0.0-0.1) 08/12/21 05:30 Absolute Nucleated RBC 0.00 x10^3/uL 08/12/21 05:30 Total Counted 100 08/07/21 05:58 Band Neuts % (Manual) 0 % (0-10) 08/07/21 05:58 Reactive Lymphs % (Man) 5 % 08/07/21 05:58 Abnorm Lymph % (Manual) 0 % 08/07/21 05:58 Myelocytes % 3 % (-0) H 08/07/21 05:58 Nucleated RBC % 0.0 /100WBC 08/12/21 05:30 Neutrophils # (Manual) 6.6 10^3/uL (1.5-6.6) 08/07/21 05:58 Lymphocytes # (Manual) 1.8 10^3/uL (1.5-3.5) 08/07/21 05:58 Monocytes # (Manual) 1.0 10^3/uL (0.0-1.0) 08/07/21 05:58 Eosinophils # (Manual) 0.2 10^3/uL (0-0.7) 08/07/21 05:58 Basophils # (Manual) 0.0 10^3/uL (0-0.1) 08/07/21 05:58 Differential Comment MANUAL DIFFERENTIAL 08/07/21 05:58 WBC Morphology NORMAL APPEARANCE (NORMAL) 08/05/21 11:08 Platelet Estimate NORMAL (130-450,000) (NORMAL) 08/05/21 11:08 Platelet Morphology NORMAL APPEARANCE (NORMAL) 08/05/21 11:08 RBC Morph Micro Appear 3+ ANISOCYTOSIS (NORMAL) 08/07/21 05:58 Absolute Retic 0.042 10^6/uL (0.020-0.110) 08/05/21 11:08 INR (Fingerstick) 1.1 (0.8-1.2) 08/05/21 16:25 Sodium 138 mmol/L (135-145) 08/12/21 05:30 Potassium 4.2 mmol/L (3.5-5.0) 08/12/21 05:30 Chloride 102 mmol/L (101-111) 08/12/21 05:30 Carbon Dioxide 28 mmol/L (21-32) 08/12/21 05:30 Anion Gap 8.0 (6-13) 08/12/21 05:30 BUN 38 mg/dL (6-20) H 08/12/21 05:30 Creatinine 1.4 mg/dL (0.4-1.0) H 08/12/21 05:30 Estimated GFR (MDRD) 37 (>89) L 08/12/21 05:30 Glucose 96 mg/dL (70-100) 08/12/21 05:30 Calcium 8.5 mg/dL (8.5-10.3) 08/12/21 05:30 Iron 23 ug/dL (28-170) L 08/05/21 11:08 TIBC 321 ug/dL (250-450) 08/05/21 11:08 % Saturation 7 % (20-50) L 08/05/21 11:08 Transferrin 229 mg/dL (192-382) 08/05/21 11:08 Ferritin 68.1 ng/mL (11.0-306.8) 08/05/21 11:08 Total Bilirubin 0.5 mg/dL (0.2-1.0) 08/05/21 11:08 AST 22 IU/L (10-42) 08/05/21 11:08 ALT 17 IU/L (10-60) 08/05/21 11:08 Alkaline Phosphatase 97 IU/L (42-121) 08/05/21 11:08 Lactate Dehydrogenase 145 IU/L (91-225) 08/05/21 18:38 Total Protein 7.4 g/dL (6.7-8.2) 08/05/21 11:08 Albumin 4.1 g/dL (3.2-5.5) 08/05/21 11:08 Globulin 3.3 g/dL (2.1-4.2) 08/05/21 11:08 Albumin/Globulin Ratio 1.2 (1.0-2.2) 08/05/21 11:08 Lipase 39 U/L (22-51) 08/05/21 11:08 Vitamin B12 182 pg/mL (180-914) 08/05/21 11:08 Urine Color YELLOW 08/05/21 19:45 Urine Clarity CLEAR (CLEAR) 08/05/21 19:45 Urine pH 5.0 PH (5.0-7.5) 08/05/21 19:45 Ur Specific [place] >=1.030 (1.002-1.030) H 08/05/21 19:45 Urine Protein NEGATIVE mg/dL (NEGATIVE) 08/05/21 19:45 Urine Glucose (UA) NEGATIVE mg/dL (NEGATIVE) 08/05/21 19:45 Urine Ketones NEGATIVE mg/dL (NEGATIVE) 08/05/21 19:45 Urine Occult Blood NEGATIVE (NEGATIVE) 08/05/21 19:45 Urine Nitrite NEGATIVE (NEGATIVE) 08/05/21 19:45 Urine Bilirubin NEGATIVE (NEGATIVE) 08/05/21 19:45 Urine Urobilinogen 0.2 (NORMAL) E.U./dL (NORMAL) 08/05/21 19:45 Ur Leukocyte Esterase NEGATIVE (NEGATIVE) 08/05/21 19:45 Urine RBC None Seen /HPF (0-5) 08/05/21 19:45 Urine WBC 0-3 /HPF (0-5) 08/05/21 19:45 Ur Squamous Epith Cells FEW Squamous (<= Few) 08/05/21 19:45 Urine Bacteria None Seen /HPF (None Seen) 08/05/21 19:45 Urine Culture Comments NOT INDICATED 08/05/21 19:45 Nasal Adenovirus (PCR) NOT DETECTED 08/05/21 11:14 Nasal B. parapertussis DNA (PCR) NOT DETECTED 08/05/21 11:14 Nasal Coronavir 229E PCR NOT DETECTED 08/05/21 11:14 Nasal Coronavir HKU1 PCR NOT DETECTED 08/05/21 11:14 Nasal Coronavir NL63 PCR NOT DETECTED 08/05/21 11:14 Nasal Coronavir OC43 PCR NOT DETECTED 08/05/21 11:14 Nasal Enterovir/Rhinovir PCR NOT DETECTED 08/05/21 11:14 Nasal Influenza B PCR NOT DETECTED 08/05/21 11:14 Nasal Influenza A PCR NOT DETECTED 08/05/21 11:14 Nasal Parainfluen 1 PCR NOT DETECTED 08/05/21 11:14 Nasal Parainfluen 2 PCR NOT DETECTED 08/05/21 11:14 Nasal Parainfluen 3 PCR NOT DETECTED 08/05/21 11:14 Nasal Parainfluen 4 PCR NOT DETECTED 08/05/21 11:14 Nasal RSV (PCR) NOT DETECTED 08/05/21 11:14 Nasal B.pertussis DNA PCR NOT DETECTED 08/05/21 11:14 Nasal C.pneumoniae (PCR) NOT DETECTED 08/05/21 11:14 Russ Human Metapneumo PCR NOT DETECTED 08/05/21 11:14 Nasal M.pneumoniae (PCR) NOT DETECTED 08/05/21 11:14 Nasal SARS-CoV-2 (PCR) NOT DETECTED 08/05/21 11:14 Stl Occult Blood (IFOB) POSITIVE (NEGATIVE) A 08/11/21 19:00 Blood Type A NEGATIVE 08/10/21 07:35 Blood Type Recheck A NEGATIVE 08/06/21 09:32 Antibody Screen NEGATIVE 08/10/21 07:35 Crossmatch IS Only See Detail 08/10/21 07:35 ABX Reporting Has patient been on IV antibiotics over the past 48 hours?: No Current Medications - Current Medications Current Medications: Active Medications Acetaminophen (Acetaminophen 325 Mg Tablet) 650 mg PO Q4HR PRN PRN Reason: Pain 1 to 4 Last Admin: 08/11/21 11:16 Dose: 650 mg Documented by: Atorvastatin Calcium (Atorvastatin 40 Mg Tablet) 40 mg PO QPM [facility] Last Admin: 08/11/21 21:07 Dose: 40 mg Documented by: Calcium Carbonate/Glycine (Calcium Carbonate Chew 500 Mg Tablet) 500 mg PO BID [facility] Last Admin: 08/12/21 09:34 Dose: 500 mg Documented by: Cholecalciferol (Cholecalciferol 25 Mcg Tablet) 50 mcg PO DAILY [facility] Last Admin: 08/12/21 09:35 Dose: 50 mcg Documented by: Diltiazem HCl (Diltiazem Cd 120 Mg Capsule) 120 mg PO QPM [facility] Last Admin: 08/11/21 21:07 Dose: 120 mg Documented by: Docusate Sodium (Docusate Sodium 250 Mg Capsule) 250 - 500 mg PO DAILY [facility] Last Admin: 08/12/21 09:34 Dose: 250 mg Documented by: Duloxetine HCl (Duloxetine 30 Mg Capsule) 60 mg PO DAILY [facility] Last Admin: 08/12/21 09:34 Dose: 60 mg Documented by: Enoxaparin Sodium (Enoxaparin 30 Mg/0.3 Ml Syringe) 30 mg SUBQ DAILY [facility] Last Admin: 08/12/21 09:33 Dose: 30 mg Documented by: Ferrous Gluconate (Ferrous Gluconate 324 Mg Tablet) 324 mg PO DAILYWM [facility] Last Admin: 08/12/21 09:35 Dose: 324 mg Documented by: Dextrose/Sodium Chloride (D5ns) 1,000 mls @ 75 mls/hr IV .[id number] [facility] Stop: 08/13/21 00:19 Ipratropium Robinson (Ipratropium 0.2 Mg/Ml Neb) 0.5 mg INH QID PRN PRN Reason: Shortness of Air/Wheezing Last Admin: 08/07/21 08:02 Dose: 0.5 mg Documented by: Ketorolac Tromethamine (Ketorolac 30 Mg/Ml Vial) 30 mg IVP Q6HR PRN PRN Reason: PAIN Last Admin: 08/11/21 23:04 Dose: 30 mg Documented by: Levalbuterol HCl (Levalbuterol 1.25 Mg/3 Ml Neb) 1.25 mg INH Q4H PRN PRN Reason: Shortness of Air/Wheezing Last Admin: 08/07/21 08:02 Dose: 1.25 mg Documented by: Morphine Sulfate (Morphine 2 Mg/Ml Carpuject) 1 mg IVP Q4HR PRN PRN Reason: Pain 8 to 10 Last Admin: 08/11/21 14:56 Dose: 1 mg Documented by: Ondansetron HCl (Ondansetron 4 Mg/2 Ml Vial) 4 mg IVP Q6HR PRN PRN Reason: Nausea / Vomiting Oxycodone HCl (Oxycodone 5 Mg Tablet) 2.5 mg PO Q4HR PRN PRN Reason: Pain 5 to 7 Last Admin: 08/11/21 11:15 Dose: 2.5 mg Documented by: Pantoprazole Sodium (Pantoprazole 40 Mg Tablet) 40 mg PO BIDAC [facility] Polyethylene Glycol (Polyethylene Glycol 3350 17 Gm Packet) 17 gm PO DAILY [facility] Last Admin: 08/12/21 09:35 Dose: 17 gm Documented by: Senna (Senna 8.6 Mg Tablet) 8.6 - 17.2 mg PO DAILY [facility] Last Admin: 08/12/21 09:35 Dose: 8.6 mg Documented by: Sodium Chloride (Sodium Chloride Flush 0.9% 10 Ml Syringe) 10 ml IVP PRN PRN PRN Reason: NEEDED PER PROVIDER ORDERS Sodium Chloride (Sodium Chloride Flush 0.9% 10 Ml Syringe) 10 ml IVP 0100,0900,1700 [facility] Last Admin: 08/12/21 09:35 Dose: 10 ml Documented by: Atorvastatin Calcium 40 mg PO DAILY 08/05/21 Diltiazem HCl [Diltiazem 12Hr ER] 120 mg PO QPM 08/05/21 Duloxetine HCl [Cymbalta] 60 mg PO DAILY 08/05/21 lisinopriL [Zestril] 5 mg PO DAILY 08/05/21 Multivitamin 1 tab PO DAILY 08/06/21 diphenhydrAMINE [Benadryl] 25 mg PO DAILY PRN 08/06/21
[2021-08-12 13:05] LABS: HCT - HEMATOCRIT 36.9 % (37.0-47.0); HGB - HEMOGLOBIN 12.1 g/dL (12.0-16.0)
[2021-08-12 14:12] LABS: B. PARAPERTUSSIS- RESP PCR PAN NOT DETECTED; B. PERTUSSIS- RESP PCR PANEL NOT DETECTED; C. PNEUMONIAE- RESP PCR PANEL NOT DETECTED; CORONAVIRUS 229E-RESP PCR NOT DETECTED; CORONAVIRUS HKU1-RESP PCR NOT DETECTED; CORONAVIRUS NL63-RESP PCR NOT DETECTED; CORONAVIRUS OC43-RESP PCR NOT DETECTED; HUMAN METAPNEUMOVIRUS NOT DETECTED; INFLUENZA A- RESP PCR PANEL NOT DETECTED; INFLUENZA B - RESP PCR PANEL NOT DETECTED; M. PNEUMONIAE- RESP PCR PANEL NOT DETECTED; PARAINFLUENZA VIRUS 1 NOT DETECTED; PARAINFLUENZA VIRUS 2 NOT DETECTED; PARAINFLUENZA VIRUS 3 NOT DETECTED; PARAINFLUENZA VIRUS 4 NOT DETECTED; RHINOVIRUS/ENTEROVIRUS NOT DETECTED; RSV- RESP PCR PANEL NOT DETECTED; SARS-CoV-2 -RESP PCR PANEL NOT DETECTED
--- NOTE | 2021-08-12 15:07 | ANESTHESIA ---
Pre-Anesthesia VS, & Labs - Diagnosis anemia - Procedure EGD Vital Signs: Temp Pulse Resp BP Pulse Ox 36.8 C 86 18 148/86 H 93 08/12/21 12:53 08/12/21 12:53 08/12/21 12:53 08/12/21 12:53 08/12/21 12:53 Height: 5 ft 1 in Weight (kg): 58 kg Body Mass Index: 24.1 BMI Classification: Healthy weight - NPO >8 hours - Is Patient ?: No - Lab Results Current Lab Results: Laboratory Tests 08/12/21 12:53: Hgb 12.1, Hct 36.9 L 08/12/21 05:30: Sodium 138, Potassium 4.2, Chloride 102, Carbon Dioxide 28, Anion Gap 8.0, BUN 38 H, Creatinine 1.4 H, Estimated GFR (MDRD) 37 L, Glucose 96, Calcium 8.5 08/12/21 05:30: WBC 9.0, RBC 3.63 L, Hgb 10.8 L, Hct 32.7 L, MCV 90.1, MCH 29.8, MCHC 33.0, RDW 15.5 H, Plt Count 402, MPV 9.4, Neut # (Auto) 5.6, Lymph # (Auto) 1.7, Creek # (Auto) 1.0, Eos # (Auto) 0.5, Baso # (Auto) 0.1, Absolute Nucleated RBC 0.00, Nucleated RBC % 0.0 08/11/21 11:08: Sodium 137, Potassium 4.3, Chloride 99 L, Carbon Dioxide 26, Anion Gap 12.0, BUN 29 H, Creatinine 1.4 H, Estimated GFR (MDRD) 37 L, Glucose 111 H, Calcium 8.7 08/11/21 11:08: WBC 9.7, RBC 4.11 L, Hgb 12.3, Hct 37.1, MCV 90.3, MCH 29.9, MCHC 33.2, RDW 15.5 H, Plt Count 394, MPV 9.2, Neut # (Auto) 6.4, Lymph # (Auto) 1.5, Creek # (Auto) 1.1 H, Eos # (Auto) 0.5, Baso # (Auto) 0.1, Absolute Nucleated RBC 0.00, Nucleated RBC % 0.0 08/10/21 17:00: WBC 8.3, RBC 3.56 L, Hgb 10.7 L, Hct 32.2 L, MCV 90.4, MCH 30.1, MCHC 33.2, RDW 15.0, Plt Count 322, MPV 9.4, Neut # (Auto) 5.4, Lymph # (Auto) 1.2 L, Creek # (Auto) 1.1 H, Eos # (Auto) 0.5, Baso # (Auto) 0.0, Absolute Nucleated RBC 0.00, Nucleated RBC % 0.0 08/10/21 07:35: Blood Type A NEGATIVE, Antibody Screen NEGATIVE, Crossmatch IS Only See Detail 08/10/21 04:48: Sodium 135, Potassium 4.1, Chloride 103, Carbon Dioxide 27, Anion Gap 5.0 L, BUN 27 H, Creatinine 1.2 H, Estimated GFR (MDRD) 44 L, Glucose 101 H, Calcium 8.1 L 08/10/21 04:48: WBC 8.1, RBC 2.56 L, Hgb 7.3 L, Hct 23.2 L, MCV 90.6, MCH 28.5, MCHC 31.5 L, RDW 15.9 H, Plt Count 317, MPV 10.1, Neut # (Auto) 5.0, Lymph # (Auto) 1.7, Creek # (Auto) 0.9, Eos # (Auto) 0.5, Baso # (Auto) 0.0, Absolute Nucleated RBC 0.00, Nucleated RBC % 0.0 08/09/21 05:29: Sodium 135, Potassium 4.0, Chloride 101, Carbon Dioxide 25, Anion Gap 9.0, BUN 25 H, Creatinine 1.3 H, Estimated GFR (MDRD) 40 L, Glucose 104 H, Calcium 8.0 L 08/09/21 05:29: WBC 9.8, RBC 2.78 L, Hgb 8.0 L, Hct 25.0 L, MCV 89.9, MCH 28.8, MCHC 32.0, RDW 15.7 H, Plt Count 288, MPV 10.4, Neut # (Auto) 6.7 H, Lymph # (Auto) 1.2 L, Creek # (Auto) 1.4 H, Eos # (Auto) 0.5, Baso # (Auto) 0.1, Absolute Nucleated RBC 0.00, Nucleated RBC % 0.0 08/08/21 19:05: Hgb 8.3 L, Hct 25.6 L 08/08/21 05:11: Sodium 136, Potassium 4.3, Chloride 104, Carbon Dioxide 24, Anion Gap 8.0, BUN 30 H, Creatinine 1.3 H, Estimated GFR (MDRD) 40 L, Glucose 106 H, Calcium 7.9 L 08/08/21 05:11: WBC 8.7, RBC 2.71 L, Hgb 8.0 L, Hct 24.6 L, MCV 90.8, MCH 29.5, MCHC 32.5, RDW 15.8 H, Plt Count 223, MPV 10.5, Neut # (Auto) 5.9, Lymph # (Auto) 1.2 L, Creek # (Auto) 1.3 H, Eos # (Auto) 0.2, Baso # (Auto) 0.0, Absolute Nucleated RBC 0.00, Nucleated RBC % 0.0 08/07/21 22:20: Hgb Cancelled, Hct Cancelled 08/07/21 05:58: Sodium 136, Potassium 4.0, Chloride 105, Carbon Dioxide 23, Anion Gap 8.0, BUN 38 H, Creatinine 1.6 H, Estimated GFR (MDRD) 32 L, Glucose 105 H, Calcium 8.0 L 08/07/21 05:58: WBC 9.8, RBC 2.91 L, Hgb 8.4 L, Hct 26.3 L, MCV 90.4, MCH 28.9, MCHC 31.9 L, RDW 15.6 H, Plt Count 213, MPV 10.3, Neut # (Auto) Not Reportable, Lymph # (Auto) Not Reportable, Creek # (Auto) Not Reportable, Eos # (Auto) Not Reportable, Baso # (Auto) Not Reportable, Absolute Nucleated RBC Not Reportable, Total Counted 100, Band Neuts % (Manual) 0, Reactive Lymphs % (Man) 5, Abnorm Lymph % (Manual) 0, Myelocytes % 3 H, Nucleated RBC % Not Reportable, Neutrophils # (Manual) 6.6, Lymphocytes # (Manual) 1.8, Monocytes # (Manual) 1.0, Eosinophils # (Manual) 0.2, Basophils # (Manual) 0.0, Differential Comment MANUAL DIFFERENTIAL, RBC Morph Micro Appear 3+ ANISOCYTOSIS 08/06/21 22:01: WBC 9.5, RBC 3.17 L, Hgb 9.1 L, Hct 29.1 L, MCV 91.8, MCH 28.7, MCHC 31.3 L, RDW 15.7 H, Plt Count 221, MPV 10.1, Neut # (Auto) 6.6, Lymph # (Auto) 1.3 L, Creek # (Auto) 1.3 H, Eos # (Auto) 0.3, Baso # (Auto) 0.0, Absolute Nucleated RBC 0.00, Nucleated RBC % 0.0 08/06/21 15:29: WBC 10.8, RBC 2.78 L, Hgb 7.9 L, Hct 25.7 L, MCV 92.4, MCH 28.4, MCHC 30.7 L, RDW 16.0 H, Plt Count 241, MPV 10.1, Neut # (Auto) 7.6 H, Lymph # (Auto) 1.6, Creek # (Auto) 1.3 H, Eos # (Auto) 0.1, Baso # (Auto) 0.1, Absolute Nucleated RBC 0.00, Nucleated RBC % 0.0 08/06/21 09:32: Blood Type Recheck A NEGATIVE 08/06/21 09:32: WBC 9.3, RBC 2.57 L, Hgb 7.4 L, Hct 23.9 L, MCV 93.0, MCH 28.8, MCHC 31.0 L, RDW 16.0 H, Plt Count 238, MPV 10.5, Neut # (Auto) 6.4, Lymph # (Auto) 1.5, Creek # (Auto) 1.2 H, Eos # (Auto) 0.2, Baso # (Auto) 0.1, Absolute Nucleated RBC 0.00, Nucleated RBC % 0.0 08/06/21 08:00: Blood Type A NEGATIVE, Antibody Screen NEGATIVE, Crossmatch IS Only See Detail 08/06/21 06:18: Sodium 139, Potassium 4.2, Chloride 108, Carbon Dioxide 23, Anion Gap 8.0, BUN 55 H, Creatinine 2.3 H, Estimated GFR (MDRD) 21 L, Glucose 98, Calcium 7.9 L 08/06/21 06:18: WBC 9.0, RBC 2.41 L, Hgb 7.0 L*, Hct 22.3 L, MCV 92.5, MCH 29.0, MCHC 31.4 L, RDW 16.1 H, Plt Count 219, MPV 10.2, Neut # (Auto) 5.7, Lymph # (Auto) 1.6, Creek # (Auto) 1.4 H, Eos # (Auto) 0.2, Baso # (Auto) 0.1, Absolute Nucleated RBC 0.00, Nucleated RBC % 0.0 08/05/21 18:38: Lactate Dehydrogenase 145 08/05/21 16:25: INR (Fingerstick) 1.1 08/05/21 11:08: Ferritin 68.1, Vitamin B12 182 08/05/21 11:08: Iron 23 L, TIBC 321, % Saturation 7 L, Transferrin 229 08/05/21 11:08: RBC 3.29 L, Reticulocyte % (Auto) 1.27, Absolute Retic 0.042 08/05/21 11:08: Sodium 141, Potassium 4.5, Chloride 106, Carbon Dioxide 23, Anion Gap 12.0, BUN 50 H, Creatinine 2.3 H, Estimated GFR (MDRD) 21 L, Glucose 124 H, Calcium 9.1, Total Bilirubin 0.5, AST 22, ALT 17, Alkaline Phosphatase 97, Total Protein 7.4, Albumin 4.1, Globulin 3.3, Albumin/Globulin Ratio 1.2, Lipase 39 08/05/21 11:08: WBC 13.7 H, RBC 3.30 L, Hgb 9.5 L, Hct 29.9 L, MCV 90.6, MCH 28.8, MCHC 31.8 L, RDW 15.9 H, Plt Count 287, MPV 10.4, Neut # (Auto) Not Reportable, Lymph # (Auto) Not Reportable, Creek # (Auto) Not Reportable, Eos # (Auto) Not Reportable, Baso # (Auto) Not Reportable, Absolute Nucleated RBC Not Reportable, Total Counted 100, Band Neuts % (Manual) 1, Abnorm Lymph % (Manual) 0, Nucleated RBC % Not Reportable, Neutrophils # (Manual) 11.0 H, Lymphocytes # (Manual) 1.2 L, Monocytes # (Manual) 1.5 H, Eosinophils # (Manual) 0.0, Basophils # (Manual) 0.0, Differential Comment MANUAL DIFFERENTIAL, WBC Morphology NORMAL APPEARANCE, Platelet Estimate NORMAL (130-450,000), Platelet Morphology NORMAL APPEARANCE, RBC Morph Micro Appear NORMAL APPEARANCE Fish Bones: 08/12/21 12:53 08/12/21 05:30 Home Medications and Allergies Home Medications: Ambulatory Orders Atorvastatin Calcium 40 mg PO DAILY 08/05/21 Diltiazem HCl [Diltiazem 12Hr ER] 120 mg PO QPM 08/05/21 Duloxetine HCl [Cymbalta] 60 mg PO DAILY 08/05/21 lisinopriL [Zestril] 5 mg PO DAILY 08/05/21 Multivitamin 1 tab PO DAILY 08/06/21 diphenhydrAMINE [Benadryl] 25 mg PO DAILY PRN 08/06/21 Active Medications Acetaminophen (Acetaminophen 325 Mg Tablet) 650 mg PO Q4HR PRN PRN Reason: Pain 1 to 4 Last Admin: 08/11/21 11:16 Dose: 650 mg Documented by: Atorvastatin Calcium (Atorvastatin 40 Mg Tablet) 40 mg PO QPM ON LICENSE OF [facility] Last Admin: 08/11/21 21:07 Dose: 40 mg Documented by: Calcium Carbonate/Glycine (Calcium Carbonate Chew 500 Mg Tablet) 500 mg PO BID ON LICENSE OF [facility] Last Admin: 08/12/21 09:34 Dose: 500 mg Documented by: Cholecalciferol (Cholecalciferol 25 Mcg Tablet) 50 mcg PO DAILY ON LICENSE OF [facility] Last Admin: 08/12/21 09:35 Dose: 50 mcg Documented by: Diltiazem HCl (Diltiazem Cd 120 Mg Capsule) 120 mg PO QPM ON LICENSE OF [facility] Last Admin: 08/11/21 21:07 Dose: 120 mg Documented by: Docusate Sodium (Docusate Sodium 250 Mg Capsule) 250 - 500 mg PO DAILY ON LICENSE OF [facility] Last Admin: 08/12/21 09:34 Dose: 250 mg Documented by: Duloxetine HCl (Duloxetine 30 Mg Capsule) 60 mg PO DAILY ON LICENSE OF [facility] Last Admin: 08/12/21 09:34 Dose: 60 mg Documented by: Enoxaparin Sodium (Enoxaparin 30 Mg/0.3 Ml Syringe) 30 mg SUBQ DAILY ON LICENSE OF [facility] Last Admin: 08/12/21 09:33 Dose: 30 mg Documented by: Ferrous Gluconate (Ferrous Gluconate 324 Mg Tablet) 324 mg PO DAILYWM ON LICENSE OF [facility] Last Admin: 08/12/21 09:35 Dose: 324 mg Documented by: Dextrose/Sodium Chloride (D5ns) 1,000 mls @ 75 mls/hr IV .[id number] ON LICENSE OF [facility] Stop: 08/13/21 00:19 Last Admin: 08/12/21 12:32 Dose: 75 mls/hr Documented by: Ipratropium [place] (Ipratropium 0.2 Mg/Ml Neb) 0.5 mg INH QID PRN PRN Reason: Shortness of Air/Wheezing Last Admin: 08/07/21 08:02 Dose: 0.5 mg Documented by: Ketorolac Tromethamine (Ketorolac 30 Mg/Ml Vial) 30 mg IVP Q6HR PRN PRN Reason: PAIN Last Admin: 08/11/21 23:04 Dose: 30 mg Documented by: Levalbuterol HCl (Levalbuterol 1.25 Mg/3 Ml Neb) 1.25 mg INH Q4H PRN PRN Reason: Shortness of Air/Wheezing Last Admin: 08/07/21 08:02 Dose: 1.25 mg Documented by: Morphine Sulfate (Morphine 2 Mg/Ml Carpuject) 1 mg IVP Q4HR PRN PRN Reason: Pain 8 to 10 Last Admin: 08/11/21 14:56 Dose: 1 mg Documented by: Ondansetron HCl (Ondansetron 4 Mg/2 Ml Vial) 4 mg IVP Q6HR PRN PRN Reason: Nausea / Vomiting Oxycodone HCl (Oxycodone 5 Mg Tablet) 2.5 mg PO Q4HR PRN PRN Reason: Pain 5 to 7 Last Admin: 08/11/21 11:15 Dose: 2.5 mg Documented by: Pantoprazole Sodium (Pantoprazole 40 Mg Tablet) 40 mg PO BIDAC ON LICENSE OF [facility] Polyethylene Glycol (Polyethylene Glycol 3350 17 Gm Packet) 17 gm PO DAILY ON LICENSE OF [facility] Last Admin: 08/12/21 09:35 Dose: 17 gm Documented by: Senna (Senna 8.6 Mg Tablet) 8.6 - 17.2 mg PO DAILY ON LICENSE OF [facility] Last Admin: 08/12/21 09:35 Dose: 8.6 mg Documented by: Sodium Chloride (Sodium Chloride Flush 0.9% 10 Ml Syringe) 10 ml IVP PRN PRN PRN Reason: NEEDED PER PROVIDER ORDERS Sodium Chloride (Sodium Chloride Flush 0.9% 10 Ml Syringe) 10 ml IVP 0100,0900,1700 JANNETH Last Admin: 08/12/21 09:35 Dose: 10 ml Documented by: Atorvastatin Calcium 40 mg PO DAILY 08/05/21 Diltiazem HCl [Diltiazem 12Hr ER] 120 mg PO QPM 08/05/21 Duloxetine HCl [Cymbalta] 60 mg PO DAILY 08/05/21 lisinopriL [Zestril] 5 mg PO DAILY 08/05/21 Multivitamin 1 tab PO DAILY 08/06/21 diphenhydrAMINE [Benadryl] 25 mg PO DAILY PRN 08/06/21 Allergies/Adverse Reactions: Allergies Allergy/AdvReac Type Severity Reaction Status Date / Time pollen extracts Allergy Respiratory Verified 08/05/21 09:38 Anes History & Medical History - Anesthetic History Anesthesia Complications: reports: No previous complications - Medical History Cardiovascular: reports: Hypertension, Arrhythmia, Other (abdominal aortic aneuysm 6cm) Pulmonary: reports: None Gastrointestinal: reports: None Urinary: reports: None Musculoskeletal: reports: Osteoarthritis Endocrine/Autoimmune: reports: None Skin: reports: None Smoking Status: Former smoker - Surgical History Eyes Ears Nose Throat (EENT): reports: Cataracts Exam General: Alert Dental: WNL Mallampati classification: II Thyromental Distance: greater than 6 cm Respiratory: Lungs clear Cardiovascular: Regular rate Plan Anesthesia Type: Total IV Consent for Procedure(s) Verified and Reviewed: Yes Code Status: Attempt Resuscitation ASA classification: 3-Severe systemic disease Is this case an emergency?: No
[2021-08-12] MEDS ORDERED: PROPOFOL 200 MG/20 ML VIAL IVP ONE (16:25)
[2021-08-12] MEDS ORDERED: LIDOCAINE-MPF 2% 5 ML VIAL ONE (16:25)
--- NOTE | 2021-08-12 17:03 | OPERATIVE REPORT ---
Operative Report - General Admit Date: 08/05/21 Procedure Date: 08/12/21 Planned Procedure: EGD Pre-Op Diagnosis: anemia Procedure Performed: EGD with cold forcep biopsies Post Op Diagnosis: irritation GE junction with blood present - Procedure Note Primary Surgeon: jj delgadillo Anesthesia Technique: MAC Pathology: antrum and ge jxn biopsy for h pylori and ? candidiasis Estimated Blood Loss (mL): 0 Indications: anemia ? ugi bleed Findings: white exudate esophagus ? candidiasis. normal esophagus otherwise no ulcers mild irritation stomach without ulcer or blood no active bleeding Complications: none
--- NOTE | 2021-08-12 17:06 | ANESTHESIA POST OP EVALUATION ---
Anesthesia Post Eval - Post Anesthesia Eval Vitals: Last Vital Signs Temp 36.8 C 08/12/21 16:58 Pulse 84 08/12/21 16:58 Resp 18 08/12/21 16:58 BP 134/75 H 08/12/21 16:58 Pulse Ox 95 08/12/21 16:58 CV Function Including HR & BP: Stable Pain Control: Satisfactory Nausea & Vomiting: Negative Mental Status: Baseline Respiratory Status: Airway Patent Hydration Status: Satisfactory Anesthesia Complications: None
[2021-08-12] MEDS ORDERED: FLUCONAZOLE 100 MG TABLET PO ONE (18:00)
[2021-08-12 20:20] LABS: HCT - HEMATOCRIT 33.4 % (37.0-47.0); HGB - HEMOGLOBIN 10.9 g/dL (12.0-16.0)
[2021-08-12] MEDS: ATORVASTATIN 40 MG TABLET PO SCH (20:27)
[2021-08-12] MEDS: diltiaZEM CD 120 MG CAPSULE PO SCH (20:27)
[2021-08-12] MEDS: oxyCODONE 5 MG TABLET PO PRN (23:55)
[2021-08-13] MEDS: PANTOPRAZOLE 40 MG TABLET PO SCH (05:14)
[2021-08-13 06:27] LABS: BASOPHILS # (AUTO) 0.1 10^3/uL (0.0-0.1); BASOPHILS % (AUTO) 0.6 %; EOSINOPHILS # (AUTO) 0.5 10^3/uL (0.0-0.7); EOSINOPHILS % (AUTO) 5.8 %; HCT - HEMATOCRIT 31.1 % (37.0-47.0); HGB - HEMOGLOBIN 10.1 g/dL (12.0-16.0); LYMPHOCYTES # (AUTO) 1.9 10^3/uL (1.5-3.5); LYMPHOCYTES % (AUTO) 21.3 %; MEAN CORPUSCULAR HEMOGLOBIN 29.9 pg (27.0-31.0); MEAN CORPUSCULAR HGB CONC 32.5 g/dL (32.0-36.0); MEAN PLATELET VOLUME 9.4 fL (7.9-10.8); MONOCYTES # (AUTO) 1.1 10^3/uL (0.0-1.0); MONOCYTES % (AUTO) 12.8 %; NEUTROPHILS # (AUTO) 5.1 10^3/uL (1.5-6.6); NEUTROPHILS % (AUTO) 57.3 %; PLT - PLATELET COUNT 436 10^3/uL (130-450); RED BLOOD COUNT 3.38 10^6/uL (4.20-5.40); RED CELL DISTRIBUTION WIDTH 15.4 % (12.0-15.0); WHITE BLOOD COUNT 8.9 x10^3/uL (4.8-10.8)
[2021-08-13 06:36] LABS: CREATININE 1.3 mg/dL (0.4-1.0); POTASSIUM 3.7 mmol/L (3.5-5.0)
[2021-08-13] MEDS ORDERED: lisinopriL 5 MG TABLET PO SCH (07:28)
[2021-08-13] MEDS ORDERED: FLUCONAZOLE 100 MG TABLET PO SCH (09:00)
[2021-08-13] MEDS: CALCIUM CARBONATE CHEW 500 MG TABLET PO SCH (09:27)
[2021-08-13] MEDS: FERROUS GLUCONATE 324 MG TABLET PO SCH (09:27)
[2021-08-13] MEDS: DOCUSATE SODIUM 250 MG CAPSULE PO SCH (09:27)
[2021-08-13] MEDS: DULoxetine 30 MG CAPSULE PO SCH (09:28)
[2021-08-13] MEDS: CHOLECALCIFEROL 25 MCG TABLET PO SCH (09:28)
[2021-08-13] MEDS: ENOXAPARIN 30 MG/0.3 ML SYRINGE SUBQ SCH (09:28)
[2021-08-13] MEDS: SENNA 8.6 MG TABLET PO SCH (09:28)
[2021-08-13] MEDS: polyethylene glycoL 3350 17 GM PACKET PO SCH (09:29)
[2021-08-13] MEDS: SODIUM CHLORIDE FLUSH 0.9% 10 ML SYRINGE IVP SCH (09:29)
--- NOTE | 2021-08-13 10:46 | Discharge Plan ---
"Discharge Plan for SNF / RETIREMENT - Discharge Plan And Transition Orders Problem Reviewed?: Yes Disposition: 03 [facility] DC/Xfer Condition: Stable Allergies and Adverse Reactions: Allergies Allergy/AdvReac Type Severity Reaction Status Date / Time pollen extracts Allergy Respiratory Verified 08/05/21 09:38 Health Concerns: s/p right hip repair, GI bleed/anemia, AAA Plan of Treatment: pt may continue to have PT/OT and pain control at SNF, and may followup with orthopedics surgeon in two weeks or early as needed. pt may have Lovenox for her DVT prophylaxis. Pt had EGD done at hospital. Pt had possible white exudate esophagus candidiasis. pt is prescribed fluconazole. pt may followup with biopsy result to adjust fluconazole treatment during time. pt is prescribed PPI and hold Aspirin now. Patient is also found iron deficiency, iron supplement is also prescribed for patient. Patient may have hemoglobin checked in 3 days, follow-up with PCP and GI surgeon as outpatient. Patient was found to have AAA in last admission and in this admission. Patient is strongly advised to follow-up with vascular surgeon to have assessment for her in the out-pt setting. Care Goals: Stabilization and healing from her right hip injury Assessment: Discussed the care plan in detail with the patient, answered her questions, she verbally understood - SNF / [facility] Transition Orders Admit to (Facility): [facility] Under the care of (Name): Medical provide of [facility] Discharge Diagnosis: Right hip fracture, GI bleed, Antibiotics hematoma, anemia, AAA, arrhythmia, CKD, hyperlipidemia, hypertension, Pulmonary hypertension Medicare Certification Statement: I certify that Post Hospital nursing home care is medically necessary on a continuing basis for any of the conditions for which she/he is receiving care during hospitalization. Notify PCP of admission and forward orders to primary provider for signature. Weight on admission and: Weekly Call PCP immediately if weight increases by: 2 kg Other Notification Orders: Call PCP immediately if patient develops dyspnea, chest pain/tightness or edema. House Bowel Program: Yes Additional Bowel Program Orders: If no BM after 2 days, nurse may give M.O.M. 30ml PO PRN and/or ducolax Supp 1 MI and/or NICK 250mg P.O., and/or senna 1-2 tabs PO. On day 3 nurse may give repeat above order until residents constipation is resolved. Annual Influenza Vaccine (between May 21 and December 18): Yes Two-step PPD per [facility] [id number] or approved exception documents: Yes Treatments & Other Orders: pt may continue to have PT/OT and pain control at SNF, and may followup with orthopedics surgeon in two weeks or early as needed. pt may have Lovenox for her DVT prophylaxis. Pt had EGD done at hospital. Pt had possible white exudate esophagus candidiasis. pt is prescribed fluconazole. pt may followup with biopsy result to adjust fluconazole treatment during time. pt is prescribed PPI and hold Aspirin now. Patient is also found iron deficiency, iron supplement is also prescribed for patient. Patient may have hemoglobin checked in 3 days, follow-up with PCP and GI surgeon as outpatient. Patient was found to have AAA in last admission and in this admission. Patient is strongly advised to follow-up with vascular surgeon to have assessment for her in the out-pt setting. Medication Orders: PLEASE REFER TO THE DISCHARGE MEDICATION LIST. Insulin Orders?: No - Medications New Prescriptions: oxyCODONE [Roxicodone] 5 mg PO Q6HR PRN #15 tablet PRN Reason: Pain 5 to 7 Fluconazole [Diflucan] 100 mg PO DAILY #14 tablet Ferrous Gluconate [Fergon] 324 mg PO DAILYWM #30 tablet Enoxaparin [Lovenox] 30 mg SUBQ DAILY #14 syr Pantoprazole [Protonix] 40 mg PO DAILY #30 tablet Calcium Carbonate [Tums (Calcium Carbonate 500mg)] 500 mg PO BID #30 tablet Cholecalciferol [Vitamin D3] 50 mcg PO DAILY #30 tablet lisinopriL [Zestril] 10 mg PO DAILY #30 tablet - Diet Type: Geriatric Texture: Regular Liquids: Thin May have monthly special meal: Yes - Therapies | Activity Therapy: Evaluation | Treat if indicated: PT, OT Rehabilitation Potential: Maximize functional status Activity: Activity as Tolerated"
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
[2021-08-13 11:39] VITALS: BP 137/66
[2021-08-14] MEDS ORDERED: lisinopriL 5 MG TABLET PO SCH (09:00)
== END 2021-08-13 13:11 | DRG 481 ==
LOC: ED 09:13 → MS2 13:59
PROVIDERS: ADMIT Nurse Practitioner Gerontology; ATTEND Nurse Practitioner Gerontology
PROC: 0QS604Z Reposition Right Upper Femur with Internal Fixation Device, Open Approach (ICD-10-PCS; principal; 2021-08-07 13:00)
PROC: 0DB58ZX Excision of Esophagus, Via Natural or Artificial Opening Endoscopic, Diagnostic (ICD-10-PCS; 2021-08-12)
PROC: 0DB78ZX Excision of Stomach, Pylorus, Via Natural or Artificial Opening Endoscopic, Diagnostic (ICD-10-PCS; 2021-08-12)
DX: S72.141A Displaced intertrochanteric fracture of right femur, initial encounter for closed fracture (principal); K92.2 Gastrointestinal hemorrhage, unspecified; N18.4 Chronic kidney disease, stage 4 (severe); N17.9 Acute kidney failure, unspecified; I10 Essential (primary) hypertension; B37.81 Candidal esophagitis; I12.9 Hypertensive chronic kidney disease with stage 1 through stage 4 chronic kidney disease, or unspecified chronic kidney disease; W18.31XA Fall on same level due to stepping on an object, initial encounter; Y92.008 Other place in unspecified non-institutional (private) residence as the place of occurrence of the external cause; I71.4 Abdominal aortic aneurysm, without rupture; I49.9 Cardiac arrhythmia, unspecified; E78.5 Hyperlipidemia, unspecified; Z87.891 Personal history of nicotine dependence; Z66 Do not resuscitate; D64.9 Anemia, unspecified; I27.20 Pulmonary hypertension, unspecified; E61.1 Iron deficiency; Z20.822 Contact with and (suspected) exposure to COVID-19
CPT/HCPCS: 36415; 71045; 73502; 73552; 74176; 80048; 80053; 81001; 82274; 82607; 82728; 83540; 83615; 83690; 84466; 85014; 85018; 85025; 85045; 85610; 86850; 86900; 86901; 86920; 87631; 93005; 93306; 94640; 96374; 96375; 97110; 97116; 97162; 97165; 97530; 99284; 99285; A9270; C1713; J1170; J1650; J7120; P9016; 0202U; 87086

== ENCOUNTER 2021-10-04 08:33 | Outpatient (CLI) | payer MEDICARE, OTHER ==
[2021-10-04 09:14] LABS: CREATININE 1.6 mg/dL (0.4-1.0)
[2021-10-04] MEDS ORDERED: iohexoL-300 100 ML VIAL IVP ONE (10:01)
--- NOTE | 2021-10-04 10:30 | CT Report ---
PROCEDURE: ANGIO ABDOMEN/PELVIS W INDICATIONS: AAA WITHOUT RUPTURE CONTRAST: IV CONTRAST: Isovue 300 ml: 100 PO CONTRAST: *NO PO CONTRAST TECHNIQUE: After the administration of intravenous contrast, 2 and 5 mm sections acquired from the diaphragm to the iliac crests. 3-dimensional maximum intensity projection (MIP) coronal and sagittal reformats, a nd/or 3-dimensional volume rendering reformatting was then performed. For radiation dose reduction, the following was used: automated exposure control, adjustment of mA and/or kV according to patient size. COMPARISON: Abdomen and pelvis CT, 08/06/2021 FINDINGS: Image quality: Excellent. Extravascular tissues: Lung bases are clear. Heart size is normal. Liver and spleen are normal in size and enhancement. Gallbladder wall does not appear thickened. Biliary system is non dilated. Pancreas enhances normally. No adrenal nodules. Kidneys are normal in size and enhancement, withou t hydronephrosis. The right kidney is low-lying. Nonobstructing left-sided kidney stones are seen th at measure up to 3 mm. Non-opacified bowel loops demonstrate normal wall thickness and caliber. There is a moderate amount o f stool seen within the colon. No free fluid or air. No retroperitoneal or mesenteric adenopathy. N o ventral hernias. The uterus demonstrates an unremarkable appearance for age. No adnexal masses are seen. No suspicious bony abnormalities. No vertebral body compression fractures. Proximal right femur tito dware is seen, with a healing fracture. Mild dextroconvex scoliotic curvature is seen. Degenerative c hanges are seen throughout, which are worst involving the lumbar spine. Abdominal aorta: Atherosclerotic calcification and irregularity can be seen throughout. There is an a bdominal aortic aneurysm again seen which measures 4.8 cm AP by 5.5 cm transversely. This fusiform an eurysm demonstrates a craniocaudal extent of 7.5 cm. Relatively prominent mural thrombus can be seen. The bilateral iliac systems demonstrate generalized atherosclerotic calcification and irregularity. A pproximately 70% stenosis can be seen involving the distal external iliac arteries. Mesenteric arteries: There is atherosclerotic calcification involving the origins of the mesenteric arteries. Approximately 50% stenosis can be seen involving the origin of the SMA, with approximately 30% stenosis involving the origin of the celiac axis. The RIKI can be seen and demonstrates no hemodyn amically significant stenosis. Renal arteries: Single bilateral renal arteries are seen. No significant stenosis is seen. IMPRESSION: Fusiform abdominal aortic aneurysm measuring 4.8 cm AP by 5.5 cm transversely. Relatively prominent m ural thrombus can be seen. No significant change can be seen compared to the prior. Approximate 70% stenoses can be seen involving the distal external iliac arteries on both sides. There is a moderate amount of stool seen within the colon. Please correlate with clinical constipatio n. Incidental note is made of: Low-lying right kidney Nonobstructing left-sided kidney stones Mild dextroconvex scoliotic curvature is seen. Proximal right femur hardware. Healing right proximal femur fracture Reviewed by: Yang Tracy MD on 10/04/2021 9:28 AM [place] Approved by: Yang Tracy MD on 10/04/2021 9:28 AM [facility] Station ID: [id number]
== END 2021-10-04 08:34 | disposition home or self-care (01) ==
LOC: LAB 08:33
PROVIDERS: ATTEND Physician Assistant Medical
DX: I71.4 Abdominal aortic aneurysm, without rupture (principal); I74.09 Other arterial embolism and thrombosis of abdominal aorta
CPT/HCPCS: 36415; 74174; 82565; 84520; Q9967

== ENCOUNTER 2021-10-15 12:11 | Outpatient (CLI) | payer MEDICARE, OTHER ==
--- NOTE | 2021-10-15 17:52 | XRAY Report ---
PROCEDURE: Chest 2 View X-Ray INDICATIONS: HX OF NICOTINE DEPENDENCE TECHNIQUE: 2 view(s) of the chest. COMPARISON: Chest x-ray one view, 08/12/2021. FINDINGS: Surgical changes and devices: None. Lungs and pleura: Hyperinflation consistent with COPD. No pleural effusions or pneumothorax. Lungs are clear. Mediastinum: Mediastinal contours are normal. Heart size is normal. Bones and chest wall: No suspicious bony abnormalities. Soft tissues appear unremarkable. Scoliosi s and degenerative changes in thoracic and lumbar spine. IMPRESSION: 1. No acute cardiopulmonary disease. 2. COPD. Reviewed by: Magi Zimmerman MD on 10/15/2021 5:50 PM PST Approved by: Magi Zimmerman MD on 10/15/2021 5:50 PM PST Station ID: [id number]
== END 2021-10-15 12:12 | disposition home or self-care (01) ==
LOC: DI.S 12:11
PROVIDERS: ATTEND Nurse Practitioner Family
DX: R05.3 Chronic cough (principal); R06.02 Shortness of breath; J44.9 Chronic obstructive pulmonary disease, unspecified

== ENCOUNTER 2021-11-03 07:35 | Outpatient (CLI) | payer MEDICARE, OTHER ==
--- NOTE | 2021-11-03 14:01 | XRAY Report ---
PROCEDURE: Hip 2 View RT INDICATIONS: RIGHT HIP FRACTURE WITH RODDING TECHNIQUE: AP and lateral view(s) of the hip were acquired. COMPARISON: August 05, 2021 FINDINGS: BONES: Interval fixation of the previously demonstrated intertrochanteric fracture of the right femur . No evidence of hardware optimizes appreciated. SOFT TISSUES: No focal abnormality. Vascular calcifications. IMPRESSION: 1.Postsurgical change of the right femur. Reviewed by: Bon Cannon MD on 11/03/2021 1:59 PM PST Approved by: Bno Cannon MD on 11/03/2021 1:59 PM PST Station ID: [id number]
== END 2021-11-03 07:36 | disposition home or self-care (01) ==
LOC: DI.WOS 07:35
PROVIDERS: ATTEND Orthopaedic Surgery
DX: S72.141D Displaced intertrochanteric fracture of right femur, subsequent encounter for closed fracture with routine healing (principal)

== ENCOUNTER 2021-11-03 09:51 | Outpatient (CLI) | payer MEDICARE, OTHER ==
--- NOTE | 2021-11-03 14:01 | XRAY Report ---
PROCEDURE: Chest 2 View X-Ray INDICATIONS: PERSONAL HX OF NICOTINE DEPENDENCE TECHNIQUE: 2 view(s) of the chest. COMPARISON: 10/15/2021 FINDINGS: Surgical changes and devices: Surgical clips in the GE junction region.. Lungs and pleura: No pleural effusions or pneumothorax. Lungs are hyperinflated and demonstrate mil d perihilar fibrotic changes and superior retraction of both hilar regions Mediastinum: Mediastinal contours are normal. Heart size is normal. Bones and chest wall: There is a chronic appearing anterior wedge compression fracture in the upper thoracic spine, approximately T6 and superior endplate depression at approximately T12. The bones are otherwise demineralized. No suspicious bony abnormalities. Soft tissues appear unremarkable. IMPRESSION: 1. Hyperexpanded and fibrotic appearing lungs suggesting COPD and emphysema. 2. T6 and T12 compression fractures. Reviewed by: Caryl Heredia MD on 11/03/2021 1:59 PM PST Approved by: Caryl Heredia MD on 11/03/2021 1:59 PM PST Station ID: [id number]
== END 2021-11-03 09:52 | disposition home or self-care (01) ==
LOC: DI.S 09:51
PROVIDERS: ATTEND Nurse Practitioner Family
DX: Z87.891 Personal history of nicotine dependence (principal); R91.8 Other nonspecific abnormal finding of lung field; M48.54XA Collapsed vertebra, not elsewhere classified, thoracic region, initial encounter for fracture; S72.141D Displaced intertrochanteric fracture of right femur, subsequent encounter for closed fracture with routine healing

== ENCOUNTER 2021-11-26 12:24 | Outpatient (CLI) | payer MEDICARE, OTHER ==
--- NOTE | 2021-11-26 16:31 | DEXA Report ---
PROCEDURE: Dexa Spine and/or Hip INDICATIONS: COLLAPSED VERTEBRA, NEC, THORACIC REGION, INIT TECHNIQUE: Dual energy x-ray absorptiometry (DXA) was performed on a [employer] System. Regions measur ed are the AP Spine, femoral neck, and if needed forearm. COMPARISON: None. FINDINGS: Lumbar Spine: Bone Mineral Density 0.945 g/cm/cm,T score -2.0, osteopenia Left Hip: Bone Mineral Density 0.44 g/cm/cm,T score -4.2, osteoporosis Left Femoral Neck: Bone Mineral Density 0.568 g/cm/cm, T score -3.4, osteoporosis (T score greater or equal to -1.0: NORMAL) (T score from -1.1 to -2.4: OSTEOPENIA) (T score less than or equal to -2.5 to: OSTEOPOROSIS) Impression: Osteoporosis. Patients with diagnosis of osteoporosis or osteopenia should have regular bone mineral density assess ment. For those eligible for Medicare, routine testing is allowed once every 2 years. Testing frequ ency can be increased for patients who have rapidly progressing disease or for those who are receivin g medical therapy to restore bone mass. Reviewed by: Gris Langford MD, PhD on 11/26/2021 4:30 PM PST Approved by: Gris Langford MD, PhD on 11/26/2021 4:30 PM PST Station ID: [id number]
== END 2021-11-26 12:25 | disposition home or self-care (01) ==
LOC: DI 12:24
PROVIDERS: ATTEND Nurse Practitioner Family
DX: M48.54XA Collapsed vertebra, not elsewhere classified, thoracic region, initial encounter for fracture (principal); M81.0 Age-related osteoporosis without current pathological fracture

== ENCOUNTER 2024-05-08 13:31 | Outpatient (CLI) | payer MEDICARE, OTHER ==
--- NOTE | 2024-05-09 12:23 | DEXA Report ---
PROCEDURE: Dexa Spine and/or Hip INDICATIONS: POST MENOPAUSAL TECHNIQUE: Dual energy x-ray absorptiometry (DXA) was performed on a [employer] System. Regions measur ed are the AP Spine, femoral neck, and if needed forearm. COMPARISON: 11/26/2021 FINDINGS: Lumbar Spine: Bone Mineral Density: 1.248 g/cm/cm,T score: 0.6. Since the most recent prior study, there has been a statistically significant increase in bone mineral density by 32 percent. Left Femoral Neck: Bone Mineral Density: 0.628 g/cm/cm, T score: -3. Left Hip: Bone Mineral Density: 0.570 g/cm/cm,T score: -3.5. Since the most recent prior study, there has been a statistically significant increase in bone mineral density by 18 percent. FRAX risk factors: None given. Not reported due to osteoporosis. Impression: By WHO criteria, this patient has osteoporosis. Interval statistical increase in bone mineral density of the lumbar spine. Interval statistical incre ase in bone mineral density of the hip. Patients with diagnosis of osteoporosis or osteopenia should have regular bone mineral density assess ment. For those eligible for Medicare, routine testing is allowed once every 2 years. Testing frequ ency can be increased for patients who have rapidly progressing disease or for those who are receivin g medical therapy to restore bone mass. Reviewed by: Lb Hogue MD on 05/09/2024 12:21 PM PDT Approved by: Lb Hogue MD on 05/09/2024 12:21 PM PDT Station ID: [id number]
== END 2024-05-08 13:32 | disposition home or self-care (01) ==
LOC: DI 13:31
PROVIDERS: ATTEND Nurse Practitioner Family
DX: M81.0 Age-related osteoporosis without current pathological fracture (principal)